=== PATIENT | female | born 1960 | race Caucasian/White ===

== ENCOUNTER → 2016-09-16 | Outpatient (CLI) | payer MEDICARE, OTHER | LOC: LABWHC1 09:58 | PROVIDERS: ATTEND Internal Medicine Cardiovascular Disease | DX: I10 Essential (primary) hypertension (principal) | CPT/HCPCS: 36415; 83704 ==

== ENCOUNTER → 2017-09-16 | Outpatient (CLI) | payer MEDICARE | END | disposition home or self-care (01) | LOC: LABPAT 15:45 | PROVIDERS: ATTEND Orthopaedic Surgery | DX: Z01.812 Encounter for preprocedural laboratory examination (principal) | CPT/HCPCS: 36415; 85730; 87070 ==

== ENCOUNTER 2017-09-19 10:09 | Inpatient (IN) | payer MEDICARE, OTHER ==
[2017-09-09 14:24] VITALS: BMI 42.8
[~2017-09-19 10:09] MED LIST: ACETAMINOPHEN TAB 500 MG TAB PO ONE; BISACODYL 10 MG SUPP RECTAL PRN; DIAZEPAM 5 MG TAB PO PRN; HYDROcodone/APAP 5-325MG 1 EACH TAB PO PRN; LIDOCAINE 1% 20 ML VIAL (10MG/ML) FOR IV START INTRADERMA PRN; MAGNESIUM HYDROXIDE 2,400 MG/10 ML CUP PO PRN; MELOXICAM 7.5 MG TAB PO ONE; MORPHINE SULFATE 4 MG/ML SYRINGE IV PRN; MORPHINE SULFATE 4 MG/ML SYRINGE IVP PRN; NA PHOS,M-B/NA PHOS,DI-BA 133 ML ENEMA RECTAL PRN; NALOXONE 0.4 MG/ML 1 ML VIAL IV PRN; ONDANSETRON 4 MG/2 ML VIAL IVP ONE; ONDANSETRON 4 MG/2 ML VIAL IVP PRN; TRANEXAMIC ACID 1,000 MG in SODIUM CHLORIDE 0.9% 50 ML IVPB ONE
[2017-09-19] MEDS ORDERED: LACTATED RINGERS 1,000 ML IV ONE ×3 (10:45→13:36)
[2017-09-19] MEDS ORDERED: DEXAMETHASONE SOD PHOS (MDV) 100 MG/10 ML VIAL IVP ONE (11:06)
[2017-09-19] MEDS ORDERED: MIDAZOLAM 2 MG/2 ML VIAL IVP ONE (11:38)
[2017-09-19] MEDS: ceFAZolin IN SWFI 2 GM/20 ML SYRINGE IVP ONE ×2 (12:26→12:27)
[2017-09-19] MEDS: ROPIVACAINE 246.25 MG, EPINEPHrine 0.5 MG, KETOROLAC 30 MG, cloNIDine HCL/PF 80 MCG, WA... MISCELLANE ONE ×10 (12:26→13:08)
[2017-09-19] MEDS ORDERED: ceFAZolin 3,000 MG in SODIUM CHLORIDE 0.9% IRRIGATIO 3,000 ML IRRIGATION ONE (13:08)
[2017-09-19] MEDS ORDERED: ROPIVACAINE 1,100 MG, SODIUM CHLORIDE 0.9% 330 ML MISCELLANE PRN ×2 (13:40)
--- NOTE | 2017-09-19 13:56 | P.OP ---
Date of Procedure: 09/19/17 Preoperative Diagnosis: Severe osteoarthritis right knee Postoperative Diagnosis: Severe osteoarthritis right knee Procedure(s) Performed: Right total knee arthroplasty Implants: Stratton and Nephew Oxinium femoral component size 4, right Stratton & Nephew Danika II right nonporous tibial baseplate size 3 Stratton [employer] Nephew size 9 mm Legion XLPE high flexion articular insert, size 3-4 Stratton [employer] Nephew Danika II resurfacing patellar component, 29 mm All components were cemented using Juan bone cement.. The articulation is Oxinium on polyethylene. Anesthesia: spinal Surgeon: Owen Tinoco Certified Histologic Technician #1: Valencia Shah Estimated Blood Loss (ml): 50 Pathology: other (Bone and cartilage) Condition: stable Disposition: PACU Indications for Procedure: After failure of conservative treatment we discussed the surgical and nonsurgical treatment options at length. Patient wishes to proceed with a total knee arthroplasty. Complications specific to this procedure were discussed at length, including but not limited to infection, bleeding, stiffness , and nerve injury. Patient is aware of all these complications and informed consent was obtained Operative Findings: The operative findings are consistent with severe osteoarthritis of the right knee Description of Procedure: Patient was seen in the preoperative area consent was reviewed and operative site was marked with a skin marker. An adductor canal pain catheter was placed by anesthesia in the preoperative area. Patient was then brought to the operating room and given preoperative antibiotics intravenously. A spinal anesthetic was administered by the anesthesia department. A tourniquet was placed on the upper thigh and the lower extremity was prepped and draped in usual sterile fashion. A gram of transexamic acid was given. A universal timeout was then performed which confirmed the patient's name, surgical site, ALLERGIES, and consent. The lower extremity was then exsanguinated and tourniquet was inflated to 250 mmHg. A standard and anterior midline approach to the knee was performed. The skin and subcutaneous tissue was dissected down to the patellar tendon. A medial parapatellar arthrotomy was then performed. The knee was then extended, the patellar was everted, and the knee was again flexed. Anterior horns of both menisci were excised, and a release was performed to the posterior medial aspect of the knee. On gross visual inspection, there was complete loss of articular cartilage in the medial and patellofemoral joint spaces. There was also significant cartilage damage in the lateral compartment. There were multiple periarticular osteophytes which were then removed with a Ronguer. The femoral canal was then opened with the appropriate drill, and the intramedullary femoral cutting guide was then placed and set for 4 of valgus. The distal femoral cutting block was then pinned in place, and the distal femur was then cut. The cutting block was then removed and the cut was checked for flatness. Next, the sizing guide was then placed and set for 3 external rotation based off of the epicondylar axis and Whitesides line. After the femur was sized, the appropriate 4-in-1 cutting block was then pinned in place. The anterior condyles were cut without notching. The posterior and chamfer cuts were performed while protecting the collateral ligaments. The cutting block was then removed, and the femoral canal was plugged with autologous bone. Attention was then directed to the tibia. The remaining ACL was removed with a Ronguer, and the tibia was then gently subluxed forward with a large bent knee retractor. Any remaining menisci was excised. The posterior lateral corner was cauterized in order to cauterize the lateral geniculate artery. The extra medullary tibial cutting guide was then placed, set for the appropriate rotation , slope, and depth of resection. The proximal tibia cutting guide was then pinned in place. Proximal tibia was then cut and sized. Next trials were then placed with the appropriate-sized insert. The knee was able to fully extend and flex to 130 and was stable throughout all range of motion. The knee was then extended, patella everted. Patella was then measured, and then using an osteotomy guide, the patella was cut at the appropriate level. The patella was then measured and drilled and the patella trial was then placed. The knee was then taken through range of motion with the patella trial and the patella tracked normally. The knee was then extended patella trial was then removed and the patella was everted. Knee was then flexed and lug holes were drilled through the femoral trial and the femoral trial was then removed. The tibial was then exposed, and the tibial broach guide was then pinned in place after it was set for the appropriate rotation to allow for the most coverage without overhang. The tibia was then reamed and broached. The cut surfaces of bone were then irrigated with pulsatile lavage. The posterior structures were injected with the ropivacaine solution. The knee was also irrigated with Irrisept solution. The components were then opened, the cement was mixed, and the components were then cemented in place. The cement was allowed to harden with the knee in full extension. While the cement was hardening, the remaining soft tissues were then injected with a ropivacaine solution, which consisted of 246.25 mg of ropivacaine, 0.5 mg of epinephrine, 30 mg of Toradol, 80 g of clonidine, and 48.45 mL of sterile water, for a total of 100 mL of fluid injected. After the cemented hardened. The tourniquet was released, and hemostasis was obtained. A second gram of transexamic acid was given. The knee was again irrigated. The knee was again taken through range of motion and found to be stable throughout all range of motion of 0-130 , and the patella tracked normally. The fascia was then closed with #2 strata fix suture. The subcutaneous tissue was closed with 3-0 Vicryl and 3-0 strata fix. Dermabond glue was used for the skin and placed with the knee in flexion. The patient was placed in a sterile silver dressing. Patient was then transferred to recovery room in stable condition. The fish hatchery assistant NEISHA Smith was required due the complexity surgery and the need for a skilled appeals assistant. She assisted in positioning, draping, retraction, and closure of the wound.
--- NOTE | 2017-09-19 14:36 | XR ---
EXAMINATION TYPE: XR knee limited RT DATE OF EXAM: 09/19/2017 CLINICAL HISTORY: Right knee pain and arthritis status post total knee replacement. TECHNIQUE: Portable AP and crosstable lateral views of the right knee are obtained immediately posto peratively. COMPARISON: None FINDINGS: Metallic hardware from total right knee arthroplasty is seen and appears satisfactory in a lignment and position. There is evidence of recent surgery with diffuse subcutaneous gas and soft ti ssue swelling noted. IMPRESSION: METALLIC HARDWARE FROM TOTAL RIGHT KNEE ARTHROPLASTY IS SATISFACTORY IN ALIGNMENT.
[2017-09-19] MEDS: LACTATED RINGERS 1,000 ML IV SCH ×2 (15:55→23:56)
[2017-09-19] MEDS: hydrOXYzine PAMOATE 25 MG CAP PO PRN ×2 (16:04→22:26)
[2017-09-19] MEDS: HYDROcodone/APAP 5-325MG 1 EACH TAB PO PRN ×2 (16:04→22:26)
[2017-09-19] MEDS: ceFAZolin IN SWFI 2 GM/20 ML SYRINGE IVP SCH ×2 (17:33→23:57)
[2017-09-19] MEDS ORDERED: ASPIRIN 325 MG TAB PO SCH (21:00)
[2017-09-19] MEDS: SENNOSIDES-DOCUSATE SODIUM 1 EACH TAB PO SCH (22:26)
[2017-09-20] MEDS: ASPIRIN 325 MG TAB PO SCH ×3 (02:21→23:03)
[2017-09-20] MEDS: SODIUM CHLORIDE 0.9% 1,000 ML IV SCH ×3 (02:22→08:57)
[2017-09-20] MEDS: HYDROcodone/APAP 5-325MG 1 EACH TAB PO PRN ×4 (05:05→23:04)
--- NOTE | 2017-09-20 05:56 | P.ONQ ---
Anesthesiology Proc Note - PNB - Peripheral Nerve Block Performed Right Adductor Canal Infusion Time Out Performed: Yes Procedure Start Time: 11:41 Procedure Stop Time: 11:51 Indication: Acute Post-Operative Pain, Requested by physician Sedation Type: Sedate with meaningful contact maintained Preparation: Sterile Dressing Position: Supine Catheter: Indwelling Needle Types: On-Q Needle Size: 100mm (4") Needle Gauge: 21 Technique: Ultrasound Injectate: 0.5% Ropivacaine (see comment for volume) (ropi .5% 20cc) Blood Aspirated: No Pain Paresthesia on Injection Noted: No Resistance on Injection: Normal Events: Uneventful and Well Tolerated
[2017-09-20 07:24] LABS: Basophils % (A) 0 %; Eosinophils # (A) 0.1 k/uL (0-0.7); Eosinophils % (A) 1 %; HCT 32.8 % (34.0-46.0); Lymphocytes % (A) 28 %; MCH 28.8 pg (25.0-35.0); MCHC 33.4 g/dL (31.0-37.0); MCV 86.2 fL (80.0-100.0); Mean Platelet Volume 6.4; Monocytes # (A) 0.3 k/uL (0-1.0); Monocytes % (A) 5 %; Neutrophils # (A) 4.8 k/uL (1.3-7.7); Neutrophils % (A) 65 %; Platelet Count 203 k/uL (150-450); RBC 3.81 m/uL (3.80-5.40); RDW 12.9 % (11.5-15.5); WBC 7.3 k/uL (3.8-10.6)
[2017-09-20] MEDS: MELOXICAM 7.5 MG TAB PO SCH (08:27)
[2017-09-20] MEDS: hydrOXYzine PAMOATE 25 MG CAP PO PRN ×3 (11:41→23:03)
--- NOTE | 2017-09-20 13:14 | P.PN ---
Progress Note - Text Anesthesia POD 1. Patient is status post right TKR under spinal anesthesia with a right adductor canal catheter placed for postoperative pain relief. With ropivacaine 0.2% running at 8 cc's per hour, the patient's VAS is (3, 5). Catheter site is clean dry and intact.
--- NOTE | 2017-09-20 16:19 | P.CONS ---
History of Present Illness - Reason for Consult Consult date: 09/20/17 Requesting physician: Owen Tinoco - Chief Complaint Status post right knee arthroplasty. - History of Present Illness This is a consultation note on a 57-year-old white female who is very well- known to my practice who has an underlying history of hypothyroidism who was in need of right knee arthroplasty. The patient states no new complaints. She is sitting in a chair comfortably without significant lower extremity pain. She is asking for medication for insomnia. Otherwise, no voiding symptoms. She describes no chest pain or shortness of breath. Some nausea most likely related to anesthesia is stated. Review of Systems Constitutional: Denies chills, Denies fever Eyes: denies blurred vision, denies pain Ears, nose, mouth and throat: Denies headache, Denies sore throat Cardiovascular: Denies chest pain, Denies shortness of breath Respiratory: Denies cough Gastrointestinal: Denies abdominal pain, Denies diarrhea, Denies nausea, Denies vomiting Genitourinary: Denies dysuria, Denies hematuria Psychiatric: Reports insomnia Endocrine: Denies fatigue, Denies weight change Past Medical History Past Medical History: Hypertension, Thyroid Disorder History of Any Multi-Drug Resistant Organisms: None Reported Past Surgical History: Bariatric Surgery, Cholecystectomy Additional Past Surgical History / Comment(s): Gastric bypass tightened - unsuccessful. Past Anesthesia/Blood Transfusion Reactions: No Reported Reaction Past Psychological History: No Psychological Hx Reported Smoking Status: Never smoker Past Alcohol Use History: None Reported Past Drug Use History: None Reported - Past Family History Father Family Medical History: No Reported History Medications and Allergies Home Medications Medication Instructions Recorded Confirmed Type Hydrochlorothiazide 25 mg PO QAM 09/09/17 09/19/17 History Levothyroxine Sodium [Synthroid] 150 mcg PO QAM 09/09/17 09/19/17 History Allergies Allergy/AdvReac Type Severity Reaction Status Date / Time banana Allergy Anaphylaxis Verified 09/19/17 14:53 latex Allergy Rash/Hives Verified 09/19/17 14:53 Physical Exam Vitals: Vital Signs Temp Pulse Pulse Pulse Resp BP Pulse Ox 09/20/17 14:37 98.1 F 94 16 115/70 98 09/20/17 07:00 98.4 F 71 14 112/71 97 09/20/17 00:00 72 72 17 09/19/17 23:00 97.5 F L 72 72 16 106/70 98 09/19/17 16:45 83 96/89 09/19/17 16:30 74 129/72 Intake and Output 09/20/17 09/20/17 09/20/17 06:59 14:59 22:59 Intake Total 826 230 Balance 826 230 Intake: Intake, IV Titration 286 130 Amount Sodium Chloride 0.9% 1, 286 130 000 ml @ 65 mls/hr IV . [id number] [facility] Rx#:[id number] Oral 540 100 Other: Voiding Method Bedside Commode # Voids 2 2 Weight 96.162 kg - Constitutional General appearance: no acute distress - EENT Eyes: EOMI - Neck Neck: no lymphadenopathy - Respiratory Respiratory: bilateral: CTA - Cardiovascular Rhythm: regular Heart sounds: normal: S1, S2 Abnormal Heart Sounds: no S3 Gallop - Gastrointestinal General gastrointestinal: soft, no tenderness - Psychiatric Psychiatric: A&O x's 3, no appropriate affect Results CBC & Chem 7: 09/20/17 06:12 Labs: Abnormal Lab Results - Last 24 Hours (Table) 09/20/17 Range/Units 06:12 Hgb 11.0 L (11.4-16.0) gm/dL Hct 32.8 L (34.0-46.0) % Assessment and Plan (1) Hypertension Current Visit: Yes Status: Acute Code(s): I10 - ESSENTIAL (PRIMARY) HYPERTENSION SNOMED Code(s): 32370479 (2) Hypothyroidism Current Visit: Yes Status: Acute Code(s): E03.9 - HYPOTHYROIDISM, UNSPECIFIED SNOMED Code(s): 04179148 (3) Osteoarthritis of right knee Current Visit: Yes Status: Acute Code(s): M17.11 - UNILATERAL PRIMARY OSTEOARTHRITIS, RIGHT KNEE SNOMED Code(s): 753340132954456 Plan: Reconcile medications. Check CBC and CMP in a.m.. The patient is doing quite well postoperatively we'll continue DVT prophylaxis with appropriate pulmonary toilet. GI prophylaxis as necessary. See orders otherwise. Time with Patient: Less than 30
--- NOTE | 2017-09-20 16:22 | P.PN ---
Subjective Progress Note Date: 09/20/17 This is a 57-year-old female who is status post right total knee arthroplasty. This is postoperative day #1. Patient is seen and evaluated at bedside today with Dr. Owen Tinoco. Patient states she has felt somewhat nauseous today. Patient states her pain is under control. Patient denies any fever/chills, numbness, weakness, tingling, abdominal pain, shortness of breath or chest pain. Objective - Vital Signs Vital signs: Vital Signs Temp 98.1 F 09/20/17 14:37 Pulse 94 09/20/17 14:37 Resp 16 09/20/17 14:37 BP 115/70 09/20/17 14:37 Pulse Ox 98 09/20/17 14:37 Intake & Output 09/19/17 09/20/17 09/20/17 18:59 06:59 18:59 Intake Total 1100 826 230 Output Total 50 Balance 1050 826 230 Weight 96.162 kg 96.162 kg Intake: IV 1100 Intake, IV Titration 286 130 Amount Sodium Chloride 0.9% 1, 286 130 000 ml @ 65 mls/hr IV . [id number] [facility] Rx#:[id number] Oral 540 100 Output: Estimated Blood Loss 50 Other: Voiding Method Bedside Commode # Voids 2 2 - Exam Vital signs are stable. Patient is in no acute distress and is alert and oriented 3. Calf is soft and nontender to palpation. Dressing is clean, dry, and intact. Patient has full foot and ankle motion without pain or difficulty. Neurovascular status and circulatory status are intact. - Labs CBC & Chem 7: 09/20/17 06:12 Labs: Abnormal Lab Results - Last 24 Hours (Table) 09/20/17 Range/Units 06:12 Hgb 11.0 L (11.4-16.0) gm/dL Hct 32.8 L (34.0-46.0) % Assessment and Plan (1) Primary osteoarthritis of right knee Current Visit: Yes Status: Acute Code(s): M17.11 - UNILATERAL PRIMARY OSTEOARTHRITIS, RIGHT KNEE SNOMED Code(s): 554695011449927 (2) S/P total knee arthroplasty Current Visit: Yes Status: Acute Code(s): Z96.659 - PRESENCE OF UNSPECIFIED ARTIFICIAL KNEE JOINT SNOMED Code(s): 8139807655435 Plan: #1 Continue with routine postoperative care, leave dressing in place for one week. #2 Anticoagulation with aspirin. #3 Physical therapy and CPM today. #4 Appreciate input from medicine. #5 Anticipate discharge to rehab on .
[2017-09-20] MEDS: DIAZEPAM 5 MG TAB PO PRN (20:45)
[2017-09-20] MEDS: SENNOSIDES-DOCUSATE SODIUM 1 EACH TAB PO SCH (23:03)
[2017-09-21] MEDS: LACTATED RINGERS 1,000 ML IV SCH (00:02)
[2017-09-21] MEDS: HYDROcodone/APAP 5-325MG 1 EACH TAB PO PRN ×2 (05:22→11:39)
[2017-09-21] MEDS: hydrOXYzine PAMOATE 25 MG CAP PO PRN ×2 (05:23→11:39)
[2017-09-21] MEDS: LEVOTHYROXINE 75 MCG TAB PO SCH (05:23)
[2017-09-21 08:04] LABS: HCT 29.9 % (34.0-46.0); MCH 28.7 pg (25.0-35.0); MCHC 33.4 g/dL (31.0-37.0); MCV 86.1 fL (80.0-100.0); Mean Platelet Volume 6.8; Platelet Count 169 k/uL (150-450); RBC 3.47 m/uL (3.80-5.40); RDW 13.2 % (11.5-15.5); WBC 4.6 k/uL (3.8-10.6)
[2017-09-21 08:19] LABS: ALT 24 U/L (9-52); AST 17 U/L (14-36); Alkaline Phosphatase 67 U/L (38-126); Anion Gap 4 mmol/L; Blood Urea Nitrogen 10 mg/dL (7-17); Calcium 8.7 mg/dL (8.4-10.2); Carbon Dioxide 29 mmol/L (22-30); Chloride 106 mmol/L (98-107); Glucose 85 mg/dL (74-99); Potassium 4.2 mmol/L (3.5-5.1); Sodium 139 mmol/L (137-145); Total Bilirubin 0.4 mg/dL (0.2-1.3); Total Protein 5.2 g/dL (6.3-8.2)
[2017-09-21] MEDS: SODIUM CHLORIDE 0.9% 1,000 ML IV SCH ×2 (09:11→20:03)
[2017-09-21] MEDS: HYDROCHLOROTHIAZIDE 25 MG TAB PO SCH (09:12)
[2017-09-21] MEDS: MELOXICAM 7.5 MG TAB PO SCH (09:13)
--- NOTE | 2017-09-21 09:13 | P.PN ---
Subjective Progress Note Date: 09/21/17 This is a 57-year-old female who is status post right total knee arthroplasty. This is postoperative day #2. Patient is seen and evaluated at bedside today with Dr. Owen Tinoco. Patient states she is feeling much better today and her pain is under control. Patient denies any new complaints. Patient denies any fever/chills, numbness, weakness, tingling, abdominal pain, shortness of breath or chest pain. Objective - Vital Signs Vital signs: Vital Signs Temp 98.2 F 09/21/17 07:00 Pulse 88 09/21/17 07:00 Resp 16 09/21/17 07:00 BP 144/69 09/21/17 07:00 Pulse Ox 97 09/21/17 07:00 Intake & Output 09/20/17 09/21/17 09/21/17 18:59 06:59 18:59 Intake Total 330 2040 Balance 330 2040 Weight 96.162 kg Intake: Intake, IV Titration 130 Amount Sodium Chloride 0.9% 1, 130 000 ml @ 65 mls/hr IV . [id number] [facility] Rx#:[id number] Oral 200 2040 Other: # Voids 2 2 - Exam Vital signs are stable. Patient is in no acute distress and is alert and oriented 3. Calf is soft and nontender to palpation. Dressing is clean, dry, and intact. Patient has full foot and ankle motion without pain or difficulty. Neurovascular status and circulatory status are intact. - Labs CBC & Chem 7: 09/21/17 07:06 09/21/17 07:06 Labs: Abnormal Lab Results - Last 24 Hours (Table) 09/21/17 09/21/17 Range/Units 07:06 07:06 RBC 3.47 L (3.80-5.40) m/uL Hgb 10.0 L (11.4-16.0) gm/dL Hct 29.9 L (34.0-46.0) % Creatinine 0.50 L (0.52-1.04) mg/dL Total Protein 5.2 L (6.3-8.2) g/dL Albumin 3.0 L (3.5-5.0) g/dL Assessment and Plan (1) Primary osteoarthritis of right knee Current Visit: Yes Status: Acute Code(s): M17.11 - UNILATERAL PRIMARY OSTEOARTHRITIS, RIGHT KNEE SNOMED Code(s): 732734935856478 (2) S/P total knee arthroplasty Current Visit: Yes Status: Acute Code(s): Z96.659 - PRESENCE OF UNSPECIFIED ARTIFICIAL KNEE JOINT SNOMED Code(s): 6869452928670 Plan: #1 Continue with routine postoperative care, leave dressing in place for one week. #2 Anticoagulation with aspirin. #3 Physical therapy and CPM today. #4 Appreciate input from medicine. #5 Anticipate discharge to rehab on .
[2017-09-21] MEDS: ASPIRIN 325 MG TAB PO SCH ×2 (09:14→20:01)
--- NOTE | 2017-09-21 09:28 | P.PN ---
Progress Note - Text The patient is status post right adductor canal catheter placement. The catheter was placed for postoperative pain control, status post total right arthroplasty. Ropivacaine 0.2% is infusing at 10 mLs per hour. The patient has no complaints of right lower extremity numbness or weakness. Patient's VAS score is 3 -10. Assessment: Patient's adductor canal catheter is in place and working appropriately. Plan: continue infusion and adjust it as needed.
--- NOTE | 2017-09-21 13:27 | P.PN ---
Subjective Progress Note Date: 09/21/17 Principal diagnosis: Continuing care. This is a continue present 57-year-old white female essentially admitted for left knee arthroplasty. The patient states no new complaints. Pulmonary toilet and anticoagulation are being followed from appropriate postsurgical protocol. The patient does not complain of any new headache or shortness of breath. No chest pain as noted. Laboratory examination is noted. Objective - Vital Signs Vital signs: Vital Signs Temp 98.2 F 09/21/17 07:00 Pulse 88 09/21/17 07:00 Resp 16 09/21/17 07:00 BP 144/69 09/21/17 07:00 Pulse Ox 97 09/21/17 07:00 Intake & Output 09/20/17 09/21/17 09/21/17 18:59 06:59 18:59 Intake Total 330 2040 Balance 330 2040 Weight 96.162 kg Intake: Intake, IV Titration 130 Amount Sodium Chloride 0.9% 1, 130 000 ml @ 65 mls/hr IV . [id number] [facility] Rx#:[id number] Oral 200 2040 Other: # Voids 2 2 - Constitutional General appearance: Present: cooperative. Absent: disheveled - EENT Eyes: Absent: abnormal pupil - Respiratory Respiratory: bilateral: CTA - Cardiovascular Rhythm: regular Heart sounds: normal: S1, S2 Abnormal Heart Sounds: Absent: S3 Gallop - Gastrointestinal General gastrointestinal: Present: soft. Absent: tenderness - Integumentary Integumentary: Absent: cellulitis, rash - Musculoskeletal Musculoskeletal: Present: generalized weakness - Psychiatric Psychiatric: Present: A&O x's 3 - Labs CBC & Chem 7: 09/21/17 07:06 09/21/17 07:06 Labs: Abnormal Lab Results - Last 24 Hours (Table) 09/21/17 09/21/17 Range/Units 07:06 07:06 RBC 3.47 L (3.80-5.40) m/uL Hgb 10.0 L (11.4-16.0) gm/dL Hct 29.9 L (34.0-46.0) % Creatinine 0.50 L (0.52-1.04) mg/dL Total Protein 5.2 L (6.3-8.2) g/dL Albumin 3.0 L (3.5-5.0) g/dL Assessment and Plan (1) Hypertension Current Visit: Yes Status: Acute Code(s): I10 - ESSENTIAL (PRIMARY) HYPERTENSION SNOMED Code(s): 15142865 (2) Hypothyroidism Current Visit: Yes Status: Acute Code(s): E03.9 - HYPOTHYROIDISM, UNSPECIFIED SNOMED Code(s): 68055600 (3) Osteoarthritis of right knee Current Visit: Yes Status: Acute Code(s): M17.11 - UNILATERAL PRIMARY OSTEOARTHRITIS, RIGHT KNEE SNOMED Code(s): 501294042293154 Plan: Continue current regimen postop protocol for knee arthroplasty. We'll continue follow from medical perspective. See orders otherwise.
[2017-09-21] MEDS ORDERED: HYDROcodone/APAP 7.5-325MG 1 EACH TAB PO PRN (15:32)
[2017-09-21] MEDS: DIAZEPAM 5 MG TAB PO PRN (16:23)
[2017-09-21] MEDS: HYDROcodone/APAP 7.5-325MG 1 EACH TAB PO PRN ×2 (17:07→23:25)
[2017-09-21] MEDS ORDERED: HYDROmorphone 2 MG TAB PO PRN ×2 (17:11→17:12)
[2017-09-21] MEDS ORDERED: HYDROmorphone 4 MG TABLET PO PRN (17:13)
[2017-09-21] MEDS: SENNOSIDES-DOCUSATE SODIUM 1 EACH TAB PO SCH (20:02)
[2017-09-22] MEDS: DIAZEPAM 5 MG TAB PO PRN ×2 (01:37→10:00)
[2017-09-22] MEDS: LACTATED RINGERS 1,000 ML IV SCH (04:35)
[2017-09-22] MEDS: LEVOTHYROXINE 75 MCG TAB PO SCH (06:22)
[2017-09-22] MEDS: HYDROcodone/APAP 7.5-325MG 1 EACH TAB PO PRN ×2 (06:22→12:16)
[2017-09-22 07:25] LABS: Basophils % (A) 1 %; Eosinophils # (A) 0.2 k/uL (0-0.7); Eosinophils % (A) 5 %; HCT 31.5 % (34.0-46.0); HGB 10.6 gm/dL (11.4-16.0); Lymphocytes # (A) 1.8 k/uL (1.0-4.8); Lymphocytes % (A) 40 %; MCH 29.1 pg (25.0-35.0); MCHC 33.6 g/dL (31.0-37.0); MCV 86.6 fL (80.0-100.0); Monocytes # (A) 0.2 k/uL (0-1.0); Monocytes % (A) 4 %; Neutrophils # (A) 2.2 k/uL (1.3-7.7); Neutrophils % (A) 49 %; Platelet Count 184 k/uL (150-450); RBC 3.63 m/uL (3.80-5.40); RDW 13.2 % (11.5-15.5); WBC 4.5 k/uL (3.8-10.6)
[2017-09-22 07:55] VITALS: BP 141/71; PULSE 64; RESP 18; TEMP 98.6
[2017-09-22] MEDS: HYDROCHLOROTHIAZIDE 25 MG TAB PO SCH (08:13)
[2017-09-22] MEDS: ASPIRIN 325 MG TAB PO SCH (08:13)
[2017-09-22] MEDS: MELOXICAM 7.5 MG TAB PO SCH (08:13)
--- NOTE | 2017-09-22 08:24 | P.DS ---
Providers Date of admission: 09/19/17 10:09 Expected date of discharge: 09/22/17 Attending physician: Owen Tinoco Consults: 09/19/17 10:04 Consult Physician Routine Consulting Provider: Jorge Mcfarlane Consult Reason/Comments: medical management Do you want consulting provider notified?: Yes Primary care physician: Concha Lo - Discharge Diagnosis(es) (1) Primary osteoarthritis of right knee Current Visit: Yes Status: Acute (2) S/P total knee arthroplasty Current Visit: Yes Status: Acute Hospital Course: This is a 57-year-old female with known history of degenerative arthritis of the right knee. The patient presents for evaluation. After discussion and consideration patient elects to proceed with total knee arthroplasty. The patient is seen preoperatively by Dr. Tinoco and medically cleared for surgery by their primary care physician. Patient is admitted to [facility] on 09/19/2017 for total knee arthroplasty. The procedures performed without complication or sequelae. The patient is doing well postoperatively. Labs and vital signs are stable on day of discharge. On day of discharge patient's knee incision is healing well. There is minimal erythema. There is no drainage noted at this time. There is minimal soft tissue swelling to the knee. Patient has full foot and ankle motion without difficulty or pain. Neurovascular status to the right lower extremity is intact. Patient is discharged to rehab in good condition. Please see med rec for accurate list of home medications. Plan - Discharge Summary Discharge Rx Participant: Yes New Discharge Prescriptions: New Aspirin 325 mg PO BID #60 tab HYDROcodone/APAP 7.5-325MG [Conger 7.5-325] 1 - 2 tab PO Q4-6H PRN #90 tab PRN Reason: Pain Sennosides [Senokot] 1 tab PO BID #60 tablet No Action Levothyroxine Sodium [Synthroid] 150 mcg PO QAM Hydrochlorothiazide 25 mg PO QAM Discharge Medication List Hydrochlorothiazide 25 mg PO QAM 09/09/17 [History] Levothyroxine Sodium [Synthroid] 150 mcg PO QAM 09/09/17 [History] Aspirin 325 mg PO BID #60 tab 09/22/17 [Rx] HYDROcodone/APAP 7.5-325MG [Conger 7.5-325] 1 - 2 tab PO Q4-6H PRN #90 tab [Rx] Sennosides [Senokot] 1 tab PO BID #60 tablet 09/22/17 [Rx] Follow up Appointment(s)/Referral(s): Owen Tinoco DO [Doctor of Osteopathic Medicine] - 2 Weeks Ambulatory/Diagnostic Orders: Continuous Passive Motion (CPM) Machine [DME.AMB1] Time Frame: 3 Weeks, Location : Determined By Patient Activity/Diet/Wound Care/Special Instructions: Weightbearing as tolerated with a walker CPM 5-6h daily Leave dressing intact. May be removed by home care nurse in 10 days, 2017. May shower with dressing on. [facility] with questions or concerns [phone] Discharge Disposition: TRANSFER TO SNF/ECF
== END 2017-09-22 13:08 | DRG 470 ==
LOC: 2ORMAIN 10:09 → 3SUR 14:15
PROVIDERS: ADMIT Orthopaedic Surgery; ATTEND Orthopaedic Surgery
PROC: 0SRC069 Replacement of Right Knee Joint with Oxidized Zirconium on Polyethylene Synthetic Substitute, Cemented, Open Approach (ICD-10-PCS; principal; 2017-09-19 12:30)
DX: M17.11 Unilateral primary osteoarthritis, right knee (principal); E03.9 Hypothyroidism, unspecified; G47.00 Insomnia, unspecified; I10 Essential (primary) hypertension; Z79.1 Long term (current) use of non-steroidal anti-inflammatories (NSAID); Z79.899 Other long term (current) drug therapy; Z90.49 Acquired absence of other specified parts of digestive tract; Z98.84 Bariatric surgery status; Z91.040 Latex allergy status; Z91.018 Allergy to other foods
CPT/HCPCS: 36415; 80053; 85025; 85027; 85730; 87070; 88300

== ENCOUNTER 2018-03-07 06:27 | Observation (INO) | payer MEDICARE, OTHER ==
[2018-03-07 06:32] VITALS: RESP 16
[2018-03-07] MEDS ORDERED: ASPIRIN 81 MG PO STA (06:41)
[2018-03-07] MEDS ORDERED: NITROGLYCERIN SL TABS 0.4 MG TAB SUBLINGUAL STA (06:58)
--- NOTE | 2018-03-07 07:01 | ED ---
Chest Pain HPI - General Chief Complaint: Chest Pain Stated Complaint: Chest Pain, syncope Time Seen by Provider: 03/07/18 06:40 Source: patient, family, RN notes reviewed Mode of arrival: wheelchair Limitations: no limitations - History of Present Illness Initial Comments: This a 58-year-old female presents to the emergency Department with chief complaint of chest pain. Patient states that the pain started yesterday progressed throughout the night and which she has developed some left arm and neck discomfort. She states it feels like symptoms falling on her arm. She denies any headache, blurred vision, focal weakness. Patient states that she hadn't heart issues approximate 10-15 years ago in which she had a heart cath, echocardiogram at that time was diagnosed with angina she's had no stents. She does take medications for hypertension denies hyperlipidemia, diabetes, smoking history. Patient does take medications currently for hypothyroidism has not taken this morning. Patient does admit to some nausea. Patient also states that she called her told that she is were the hospital. She was getting dressed and next thing she knew she woke up on the ground area she states that she would she passed out at this time. - Related Data Home Medications Medication Instructions Recorded Confirmed Hydrochlorothiazide 25 mg PO QAM 09/09/17 03/07/18 Levothyroxine Sodium [Synthroid] 150 mcg PO QAM 09/09/17 03/07/18 Allergies Allergy/AdvReac Type Severity Reaction Status Date / Time banana Allergy Anaphylaxis Verified 03/07/18 07:56 latex Allergy Rash/Hives Verified 03/07/18 07:56 Review of Systems ROS Statement: Those systems with pertinent positive or pertinent negative responses have been documented in the HPI. ROS Other: All systems not noted in ROS Statement are negative. EKG Findings - EKG Comments: EKG Findings:: EKG performed at 6:37 normal sinus rhythm with a rate of 63 [place] 176 QRS 84 QT/QTC 432/442 Past Medical History Past Medical History: Hypertension, Thyroid Disorder History of Any Multi-Drug Resistant Organisms: None Reported Past Surgical History: Bariatric Surgery, Cholecystectomy Additional Past Surgical History / Comment(s): Gastric bypass tightened - unsuccessful. Past Anesthesia/Blood Transfusion Reactions: No Reported Reaction Past Psychological History: No Psychological Hx Reported Smoking Status: Never smoker Past Alcohol Use History: None Reported Past Drug Use History: None Reported - Past Family History Father Family Medical History: No Reported History General Exam Limitations: no limitations General appearance: alert, in no apparent distress Head exam: Present: atraumatic, normocephalic, normal inspection Neck exam: Present: normal inspection, full ROM. Absent: tenderness, meningismus, lymphadenopathy Respiratory exam: Present: normal lung sounds bilaterally, chest wall tenderness. Absent: respiratory distress, wheezes, rales, rhonchi, stridor Cardiovascular Exam: Present: regular rate, normal rhythm, normal heart sounds. Absent: systolic murmur, diastolic murmur, rubs, gallop, clicks GI/Abdominal exam: Present: soft, normal bowel sounds. Absent: distended, tenderness, guarding, rebound, rigid Course Vital Signs 03/07/18 03/07/18 03/07/18 06:29 07:44 07:56 Temperature 97.9 F Pulse Rate 64 66 60 Respiratory 16 16 16 Rate Blood Pressure 155/84 136/76 118/70 O2 Sat by Pulse 97 100 100 Oximetry Disposition Clinical Impression: Chest pain, Syncope Disposition: ADMITTED IP TO THIS [facility] Condition: Stable Referrals: Jorge Mcfarlane MD [Primary Care Provider] - 1-2 days
[2018-03-07 07:04] LABS: Basophils % (A) 1 %; Eosinophils # (A) 0.1 k/uL (0-0.7); Eosinophils % (A) 3 %; HCT 39.1 % (34.0-46.0); HGB 12.3 gm/dL (11.4-16.0); Lymphocytes # (A) 1.9 k/uL (1.0-4.8); Lymphocytes % (A) 49 %; MCH 27.5 pg (25.0-35.0); MCHC 31.4 g/dL (31.0-37.0); MCV 87.6 fL (80.0-100.0); Mean Platelet Volume 5.9; Monocytes # (A) 0.2 k/uL (0-1.0); Monocytes % (A) 6 %; Neutrophils # (A) 1.5 k/uL (1.3-7.7); Neutrophils % (A) 39 %; Platelet Count 271 k/uL (150-450); RBC 4.46 m/uL (3.80-5.40); RDW 14.8 % (11.5-15.5); WBC 3.8 k/uL (3.8-10.6)
--- NOTE | 2018-03-07 07:09 | XR ---
EXAMINATION TYPE: XR chest 2V DATE OF EXAM: 03/07/2018 COMPARISON: NONE HISTORY: Chest pain TECHNIQUE: Frontal and lateral views of the chest are obtained. FINDINGS: There is no heart failure nor confluent pneumonic infiltrate. Costophrenic angles are harman r. Heart size is normal. There are chest leads. Bony thorax is intact. IMPRESSION: No active cardiopulmonary disease. No heart failure.
[2018-03-07 07:14] LABS: ALT 26 U/L (9-52); AST 24 U/L (14-36); Albumin 3.7 g/dL (3.5-5.0); Alkaline Phosphatase 81 U/L (38-126); Anion Gap 3 mmol/L; Blood Urea Nitrogen 13 mg/dL (7-17); Calcium 9.4 mg/dL (8.4-10.2); Carbon Dioxide 32 mmol/L (22-30); Chloride 104 mmol/L (98-107); Glucose 90 mg/dL (74-99); Magnesium 1.9 mg/dL (1.6-2.3); Sodium 139 mmol/L (137-145); Total Bilirubin 0.4 mg/dL (0.2-1.3); Total Protein 6.6 g/dL (6.3-8.2)
[2018-03-07 07:17] LABS: D-Dimer 0.46 mg/L FEU (<0.60); INR 1.1 (<1.2); Partial Thromboplastin Time 23.6 sec (22.0-30.0); Prothrombin Time 10.4 sec (9.0-12.0)
[2018-03-07 07:41] LABS: Creatine Kinase 102 U/L (30-135)
[2018-03-07 07:53] LABS: Creatine Kinase MB 1.1 ng/mL (0.0-2.4); Troponin I <0.012 ng/mL (0.000-0.034)
[2018-03-07] MEDS ORDERED: HEPARIN SODIUM,PORCINE 5,000 UNIT/ML 1 ML VIAL IV ONE (08:13)
[2018-03-07] MEDS ORDERED: NITROGLYCERIN SL TABS 0.4 MG TAB SUBLINGUAL PRN (08:13)
[2018-03-07] MEDS ORDERED: HEPARIN SOD,PORK IN 0.45% NACL 25,000 UNIT in 0.45% NACL 1 500ML.BAG IV SCH (08:15)
[2018-03-07 11:59] LABS: Creatine Kinase 83 U/L (30-135)
[2018-03-07 12:11] LABS: Creatine Kinase MB 0.8 ng/mL (0.0-2.4); Troponin I <0.012 ng/mL (0.000-0.034)
--- NOTE | 2018-03-07 12:14 | CONS ---
CONSULTATION Mrs. Conde is a 58-year-old female who presented with symptoms of chest and arm discomfort as well as syncope. She has some discomfort going on since yesterday. Some of the discomfort is somewhat positional and she had tingling in the hands. She got up and walked her dog and subsequently because of the persistent symptoms, she called her to come to the emergency room after she was in the bathroom, got up from bathroom and walked to her room when she had a syncopal episode. She had no associated palpitation. No tonic clonic activity and no loss of bladder control. She was admitted to the hospital to be evaluated. The patient has had cardiac catheterization about 10 years ago and according to her was unremarkable at that time. She was seen in our office in October of 2015 and at that time and subsequently had a myocardial perfusion imaging performed in September of 2016 that revealed no evidence of inducible ischemia. The patient has dyspnea on exertion. No dizziness. No palpitation. No PND, orthopnea, and no prior history of syncope. Her coronary risk factors are positive for history of hypertension. She is nondiabetic, nonsmoker. MEDICATION: Her medications include levothyroxine 0.15 mg daily and hydrochlorothiazide 25 mg daily. REVIEW OF SYSTEMS: RESPIRATORY SYSTEM: No history of documented asthma, emphysema or bronchitis. GI SYSTEM: No recent GI bleed. No peptic ulcer disease. SYSTEM: No dysuria or hematuria. NERVOUS SYSTEM: No history of stroke or seizure. PHYSICAL EXAMINATION: She is a 58-year-old female, alert, oriented, in no apparent distress. Blood pressure 135/70 with the heart rate in the 60s. HEAD: Normocephalic. EYES: Sclerae anicteric. NECK: Good upstroke. No bruits. No jugular venous distention. LUNGS: Clear to auscultation. HEART: Regular rate and rhythm. S1, S2. No S3. No S4. No murmur or rub. ABDOMEN: Soft, nontender. Positive bowel sounds. No organomegaly. EXTREMITIES: No significant edema. Intact distal pulses. LAB DATA: Lab data revealed a troponin of 0.012. BUN and creatinine 13 and 0.68. Potassium 4.0. Hemoglobin of 12.3. IMPRESSION: 1. Chest discomfort with tingling in the fingers of unclear etiology. 2. Syncope appears to be orthostatic in origin. 3. History of gastric bypass. 4. History of hypertension. RECOMMENDATION: From the cardiac standpoint, I will obtain echocardiogram with Doppler. I will obtain cardiac enzymes. If her cardiac enzymes are negative then I will proceed with a myocardial perfusion imaging to further assess her status and guide her treatment. Thank you for this consult. We will follow with you. MMIRISHL / IJN: [id number] /
[2018-03-07] MEDS ORDERED: REGADENOSON 0.4 MG/5 ML SYRINGE IV ONE (12:19)
[2018-03-07] MEDS ORDERED: AMINOPHYLLINE 500 MG/20 ML VIAL IV PRN (12:19)
--- NOTE | 2018-03-07 12:33 | ECHOF ---
Referral Reason:chest pain MEASUREMENTS -------- HEIGHT: 149.9 cm WEIGHT: 103.9 kg BP: 118/70 RVIDd: 3.6 cm (< 3.3) IVSd: 0.9 cm (0.6 - 1.1) LVIDd: 4.0 cm (3.9 - 5.3) LVPWd: 1.0 cm (0.6 - 1.1) IVSs: 1.3 cm LVIDs: 2.5 cm LVPWs: 1.3 cm LAESV Index (A-L): 30.09 ml/m Ao Diam: 3.2 cm (2.0 - 3.7) AV Cusp: 1.8 cm (1.5 - 2.6) LA Diam: 4.0 cm (2.7 - 3.8) EPSS: 1.5 cm MV E Jani: 0.90 m/s MV DecT: 256 ms MV A Jani: 0.71 m/s MV E/A Ratio: 1.28 RAP: 5.00 mmHg RVSP: 32.55 mmHg MV EF SLOPE: 77.60 mm/s (70 - 150) MV EXCURSION: 1.85 cm (> 18.000) FINDINGS -------- Sinus rhythm. This was a technically difficult study with suboptimal views. The left ventricular size is normal. Left ventricular wall thickness is normal. Overall left vent ricular systolic function is normal with, an EF between 55 - 60 %. The right ventricle is mildly enlarged. LA is midly dilated 29-33ml/m2. The right atrial size is normal. 3 ml of Lumason was utilized for enhancement of images. There is mild aortic valve sclerosis. There is no evidence of aortic stenosis. Mild mitral annular calcification present. Mild mitral regurgitation is present. Mild tricuspid regurgitation present. Right ventricular systolic pressure is normal at < 35 mmHg. There is no evidence of pulmonary hypertension. Trace/mild (physiologic) pulmonic regurgitation. The aortic root size is normal. IVC Not well visulized. There is no pericardial effusion. CONCLUSIONS -------- 1. Sinus rhythm. 2. This was a technically difficult study with suboptimal views. 3. The left ventricular size is normal. 4. Left ventricular wall thickness is normal. 5. Overall left ventricular systolic function is normal with, an EF between 55 - 60 %. 6. The right ventricle is mildly enlarged. 7. LA is midly dilated 29-33ml/m2. 8. The right atrial size is normal. 9. 3 ml of Lumason was utilized for enhancement of images. 10. There is mild aortic valve sclerosis. 11. Mild mitral annular calcification present. 12. Mild mitral regurgitation is present. 13. Mild tricuspid regurgitation present. 14. Right ventricular systolic pressure is normal at < 35 mmHg. 15. Trace/mild (physiologic) pulmonic regurgitation. 16. The aortic root size is normal. 17. IVC Not well visulized. 18. There is no pericardial effusion. CHIEF OF INTERNAL MEDICINE: Nnamdi Mortensen RDCS
[2018-03-07] MEDS ORDERED: ACETAMINOPHEN TAB 325 MG TAB PO PRN (15:24)
[2018-03-07] MEDS: NITROGLYCERIN OINT 1 INCH/GM PACKET TOPICAL SCH ×2 (15:50→18:08)
[2018-03-07 19:45] LABS: Creatine Kinase 81 U/L (30-135)
[2018-03-07 19:58] LABS: Creatine Kinase MB 0.7 ng/mL (0.0-2.4); Troponin I <0.012 ng/mL (0.000-0.034)
[2018-03-08 03:50] LABS: Cholesterol 243 mg/dL (<200); HDL Cholesterol 73 mg/dL (40-60); LDL Cholesterol,Calculated 154 mg/dL (0-99); Triglycerides 81 mg/dL (<150)
[2018-03-08] MEDS: NITROGLYCERIN OINT 1 INCH/GM PACKET TOPICAL SCH (04:07)
[2018-03-08 07:27] LABS: Mean Platelet Volume 6.5; Platelet Count 245 k/uL (150-450)
--- NOTE | 2018-03-08 08:12 | PN ---
PROGRESS NOTE Mrs. Conde is a 58-year-old female who presented with symptoms of chest discomfort that has some atypical features for ischemic heart disease was more positional. She had a brief syncopal episode that could be orthostatic hypotension. She is feeling better today. She has no significant discomfort. No dizziness. No palpitation. On the monitor, she is in sinus mechanism. She is ambulating without much difficulty. Her echocardiogram revealed preserved left ventricular size and systolic function. Her medication include aspirin, nitro paste 1 inch q.6 hours. Her echocardiogram that was performed yesterday revealed a preserved left ventricular size and systolic function with mild mitral and tricuspid regurgitation. PHYSICAL EXAMINATION: Blood pressure 117/60 with the heart rate in the 60s. LUNGS: Clear. HEART: Regular rate and rhythm. S1, S2. No S3. No rub. ABDOMEN: Soft, nontender. EXTREMITIES: No edema. LAB DATA: Lab data revealed troponin less than 0.012. Her LDL is 154. IMPRESSION: 1. Chest discomfort, has atypical features for ischemic heart disease. 2. Syncope probably orthostatic hypotension. 3. Hypertension, stable at this time. 4. Hyperlipidemia, not treated. RECOMMENDATION: I will stop her nitrate and heparin. I will add statin to her regimen. I will proceed with myocardial perfusion imaging to evaluate her status and guide her treatment and depending on the results of testing, further recommendation will be made. MMODL / IJN: [id number] /
[2018-03-08] MEDS ORDERED: ASPIRIN 325 MG TAB PO SCH (09:00)
[2018-03-08] MEDS ORDERED: ATORVASTATIN 40 MG TAB PO SCH (09:00)
--- NOTE | 2018-03-08 09:10 | P.HPIM ---
History of Present Illness H&P Date: 03/08/18 Chief Complaint: Chest pain with dizziness/syncope This is a history and physical on a 58-year-old white female who was admitted from the emergency department with severe chest pressure. She states the pain started about yesterday and had developed some left arm and neck discomfort. She denies any significant weakness but she has had workup in the remote past including catheterization and echocardiogram. She has an underlying history of diabetes hyperlipidemia and previous smoking. There was some nausea but no overt diaphoresis. She was getting dressed and then she had a syncopal episode. The patient is now admitted for appropriate treatment. Review of Systems Constitutional: Denies chills, Denies fever Eyes: denies blurred vision, denies pain Ears, nose, mouth and throat: Denies headache, Denies sore throat Cardiovascular: Reports as per HPI, Reports chest pain, Reports syncope Respiratory: Denies cough Gastrointestinal: Denies abdominal pain, Denies diarrhea, Denies nausea, Denies vomiting Musculoskeletal: Denies myalgias Integumentary: Denies pruritus, Denies rash Past Medical History Past Medical History: Hypertension, Thyroid Disorder Additional Past Medical History / Comment(s): Hypothyroid History of Any Multi-Drug Resistant Organisms: None Reported Past Surgical History: Bariatric Surgery, Cholecystectomy, Joint Replacement, Tonsillectomy Additional Past Surgical History / Comment(s): Gastric bypass, revision of gastric bypass unsuccessful, total R knee arthroplasty, colonoscopy. Past Anesthesia/Blood Transfusion Reactions: No Reported Reaction Smoking Status: Never smoker - Past Family History Father Family Medical History: Coronary Artery Disease (CAD), CVA/TIA Additional Family Medical History / Comment(s): Father is . Mother Family Medical History: Coronary Artery Disease (CAD), CVA/TIA Additional Family Medical History / Comment(s): Mother is . Medications and Allergies Home Medications Medication Instructions Recorded Confirmed Type Hydrochlorothiazide 25 mg PO QAM 09/09/17 03/07/18 History Levothyroxine Sodium [Synthroid] 150 mcg PO QAM 09/09/17 03/07/18 History Allergies Allergy/AdvReac Type Severity Reaction Status Date / Time banana Allergy Anaphylaxis Verified 03/07/18 07:56 latex Allergy Rash/Hives Verified 03/07/18 07:56 Physical Exam Vitals: Vital Signs Temp Pulse Pulse Resp BP BP Pulse Ox 03/07/18 15:35 98.3 F 86 16 130/77 96 03/07/18 12:00 98.6 F 65 16 144/82 98 03/07/18 09:52 98.6 F 56 L 16 135/78 97 03/07/18 09:15 98 F 61 16 148/87 100 03/07/18 07:56 60 16 118/70 100 03/07/18 07:44 66 16 136/76 100 03/07/18 06:29 97.9 F 64 16 155/84 97 Intake and Output 03/07/18 03/07/18 03/07/18 06:59 14:59 22:59 Intake Total 222 Balance 222 Intake: Oral 222 Other: Weight 103.873 kg 102.1 kg - Constitutional General appearance: average body habitus - EENT Eyes: EOMI - Neck Neck: no lymphadenopathy - Respiratory Respiratory: bilateral: CTA - Cardiovascular Rhythm: regular Heart sounds: normal: S1, S2 Abnormal Heart Sounds: no S3 Gallop - Musculoskeletal Musculoskeletal: gait normal - Psychiatric Psychiatric: A&O x's 3, appropriate affect Results CBC & Chem 7: 03/08/18 06:32 03/07/18 06:46 Labs: Abnormal Lab Results - Last 24 Hours (Table) 03/07/18 Range/Units 06:46 Carbon Dioxide 32 H (22-30) mmol/L Thrombosis Risk Factor Assmnt - Choose All That Apply Any of the Below Risk Factors Present?: Yes Each Factor Represents 1 point: Age 41-60 years, Obesity (BMI >25) Other Risk Factors: No Other congenital or acquired thrombophilia - If yes, enter type in comment: No Thrombosis Risk Factor Assessment Total Risk Factor Score: 2 Thrombosis Risk Factor Assessment Level: Low Risk Assessment and Plan (1) Chest pain Current Visit: Yes Status: Acute Code(s): R07.9 - CHEST PAIN, UNSPECIFIED SNOMED Code(s): 13111873 (2) Syncope Current Visit: Yes Status: Acute Code(s): R55 - SYNCOPE AND COLLAPSE SNOMED Code(s): 749859041 (3) Hypertension Current Visit: No Status: Acute Code(s): I10 - ESSENTIAL (PRIMARY) HYPERTENSION SNOMED Code(s): 97312814 (4) Hypothyroidism Current Visit: No Status: Acute Code(s): E03.9 - HYPOTHYROIDISM, UNSPECIFIED SNOMED Code(s): 53048689 Plan: The patient is appropriate admitted for chest pressure. Rule out myocardial infarction and watch for any type of enzymatic elevation. Question need for echocardiogram with carotid Doppler if cardiac workup is negative. Otherwise, reconcile home medications. Appreciate cardiology input. See orders otherwise.
[2018-03-08 11:36] VITALS: BP 139/84; TEMP 98.4
--- NOTE | 2018-03-08 12:03 | NM ---
EXAMINATION TYPE: NM stress lexiscan cardiolite DATE OF EXAM: 03/08/2018 COMPARISON: NONE HISTORY: Chest pain TECHNIQUE: After the intravenous administration of 10.1 mCi Tc 99m Sestamibi - Cardiolite resting SP ECT images acquired 60 minutes post injection. The patient received 0.4mg Lexiscan, 24.9 mCi Tc 99m Sestamibi - Stress images obtained [address] injection FINDINGS: Review of stress and rest SPECT images demonstrates no distinct perfusion abnormality. Gated analysi s shows normal wall motion with an estimated left ventricular ejection fraction of 62 %. IMPRESSION: No scintigraphic evidence for reversible ischemia.
[2018-03-08 12:24] VITALS: PULSE 58
[2018-03-08 12:24] LABS: Hemoglobin A1C 5.3 % (4.0-6.0)
--- NOTE | 2018-03-08 13:48 | EST ---
EXERCISE STRESS AGE: 58 SEX: F HT: 4 foot 11 WT: 225 PROTOCOL: Lexiscan Cardiolite HEART RATE REST: 68 BLOOD PRESSURE REST: 145/95 MAXIMUM HEART RATE ACHIEVED: 96 MAXIMUM BLOOD PRESSURE: 193/93 85% MPHR: 136 100% MPHR: 160 INDICATIONS: Chest pain. CLINICAL INFORMATION: Baseline rhythm is sinus mechanism, rate of 68, normal axis, intervals, normal echocardiogram. Baseline blood pressure are 145/95 mmHg. Patient received injection of Lexiscan. Electrocardiographic monitoring revealed no evidence of diagnostic ischemic ST deviation. Cardiolite was injected per protocol. CONCLUSION: 1. Nondiagnostic electrocardiograph stress testing. 2. Nuclear images will be reported separately. MMODL / IJN: [id number] /
== END 2018-03-08 14:02 | disposition home or self-care (01) ==
LOC: EC 06:27 → 3OBS 08:13
PROVIDERS: ADMIT Family Medicine; ATTEND Family Medicine
DX: R07.89 Other chest pain (principal); R55 Syncope and collapse; M79.602 Pain in left arm; R11.0 Nausea; R42 Dizziness and giddiness; M54.2 Cervicalgia; R20.2 Paresthesia of skin; R06.09 Other forms of dyspnea; I10 Essential (primary) hypertension; E78.5 Hyperlipidemia, unspecified; E03.9 Hypothyroidism, unspecified; E11.9 Type 2 diabetes mellitus without complications; Z79.890 Hormone replacement therapy; Z79.899 Other long term (current) drug therapy; Z91.040 Latex allergy status; Z91.018 Allergy to other foods; Z98.84 Bariatric surgery status; Z90.49 Acquired absence of other specified parts of digestive tract; Z87.891 Personal history of nicotine dependence; Z82.49 Family history of ischemic heart disease and other diseases of the circulatory system; E66.9 Obesity, unspecified; Z68.42 Body mass index [BMI] 45.0-49.9, adult
CPT/HCPCS: 99285; 96376 ×2; 96365 ×2; 36415; 93005; 93017; 85379; 80061; 80053; 82550; 82553; 83735; 84484; 85025; 85049; 85610; 85730; 83036; 71046; 78452; G0378 ×2; C8929; A9500; J1644 ×2; J2785; Q9950; 93306

== ENCOUNTER 2018-06-26 20:00 | Emergency (ER) | payer MEDICARE, OTHER ==
--- NOTE | 2018-06-26 22:03 | ED ---
General Adult HPI - General Chief complaint: Extremity Problem,Nontraumatic Stated complaint: Leg pain Time Seen by Provider: 06/26/18 21:48 Source: patient, family, EMS, RN notes reviewed, old records reviewed Mode of arrival: EMS Limitations: no limitations - History of Present Illness Initial comments: 58-year-old female presenting for evaluation pain and swelling in the left leg. She states the pain begins at her ankle and progresses to her upper calf. She has no reported injury or overuse. No history of DVT. She is presenting with concern for DVT. No chest pain or dyspnea. No abdominal pain. No history of heart failure, no history of hypertension or diabetes. No history of CAD. Patient denies erythema. Denies fever or chills. - Related Data Home Medications Medication Instructions Recorded Confirmed Hydrochlorothiazide 25 mg PO QAM 09/09/17 06/26/18 Levothyroxine Sodium [Synthroid] 150 mcg PO QAM 09/09/17 06/26/18 Allergies Allergy/AdvReac Type Severity Reaction Status Date / Time banana Allergy Anaphylaxis Verified 06/26/18 21:48 latex Allergy Rash/Hives Verified 06/26/18 21:48 Review of Systems ROS Statement: Those systems with pertinent positive or pertinent negative responses have been documented in the HPI. ROS Other: All systems not noted in ROS Statement are negative. Past Medical History Past Medical History: Hypertension, Thyroid Disorder Additional Past Medical History / Comment(s): Hypothyroid History of Any Multi-Drug Resistant Organisms: None Reported Past Surgical History: Bariatric Surgery, Cholecystectomy, Joint Replacement, Orthopedic Surgery, Tonsillectomy Additional Past Surgical History / Comment(s): Gastric bypass, revision of gastric bypass unsuccessful, total R knee arthroplasty, colonoscopy. Past Anesthesia/Blood Transfusion Reactions: No Reported Reaction Past Psychological History: No Psychological Hx Reported Smoking Status: Never smoker Past Alcohol Use History: None Reported Past Drug Use History: None Reported - Past Family History Father Family Medical History: Coronary Artery Disease (CAD), CVA/TIA Additional Family Medical History / Comment(s): Father is . Mother Family Medical History: Coronary Artery Disease (CAD), CVA/TIA Additional Family Medical History / Comment(s): Mother is . General Exam Limitations: no limitations General appearance: alert, in no apparent distress Head exam: Present: atraumatic, normocephalic Eye exam: Present: normal appearance, PERRL, EOMI ENT exam: Present: normal exam Neck exam: Present: normal inspection. Absent: tenderness, meningismus Respiratory exam: Present: normal lung sounds bilaterally. Absent: respiratory distress, wheezes Cardiovascular Exam: Present: regular rate, normal rhythm GI/Abdominal exam: Present: soft. Absent: distended, tenderness, guarding Extremities exam: Present: normal capillary refill, calf tenderness, other ( Soft tissue swelling, nonpitting in the lateral aspect of the distal leg anterior surface. No erythema, no induration, no fluctuance. There is some calf tenderness. Distal pulses are intact, 2+ DP and PT pulses in the left lower extremity.). Absent: pedal edema Neurological exam: Present: alert, oriented X3, CN II-XII intact. Absent: motor sensory deficit Psychiatric exam: Present: normal affect, normal mood Skin exam: Present: warm, dry, intact. Absent: cyanosis, diaphoretic Course Vital Signs 06/26/18 20:01 Temperature 97.9 F Pulse Rate 69 Respiratory 20 Rate Blood Pressure 161/63 O2 Sat by Pulse 100 Oximetry Medical Decision Making - Medical Decision Making 58-year-old female presenting with swelling in the left lower extremity, concern for DVT. There is some mild soft tissue swelling, no induration, no erythema, no signs of infection. Ultrasound is obtained to rule out DVT, this is negative for DVT. X-rays also obtained, no acute bony abnormality identified. Patient will elevate the extremity, and follow-up with primary care physician. Return with worsening or changing symptoms. Disposition Clinical Impression: Lower extremity edema Disposition: HOME SELF-CARE Condition: Good Instructions: Leg Edema (ED) Is patient prescribed a controlled substance at d/c from ED?: No Referrals: Jorge Mcfarlane MD [Primary Care Provider] - 1-2 days Time of Disposition: 23:28
--- NOTE | 2018-06-26 22:33 | XR ---
EXAMINATION TYPE: XR tibia fibula LT DATE OF EXAM: 06/26/2018 COMPARISON: NONE HISTORY: Ankle pain TECHNIQUE: 2 views FINDINGS: Tibia and fibula appear intact. I see no fracture nor dislocation. There is a large plantar calcaneal spur. Ankle mortise is anatomic. IMPRESSION: Calcaneal spurring. No fracture.
--- NOTE | 2018-06-26 23:17 | US ---
EXAMINATION TYPE: US venous doppler duplex LE LT DATE OF EXAM: 06/26/2018 10:52 PM COMPARISON: NONE CLINICAL HISTORY: Pain. Edema. SIDE PERFORMED: Left TECHNIQUE: The lower extremity deep venous system is examined utilizing real time linear array sonog angela with graded compression, doppler sonography and color-flow sonography. VESSELS IMAGED: External Iliac Vein (EIV) Common Femoral Vein Deep Femoral Vein Greater Saphenous Vein * Femoral Vein Popliteal Vein Small Saphenous Vein * Proximal Calf Veins (* superficial vessels) Left Leg: Negative for DVT No evidence of DVT left leg. IMPRESSION: Normal left leg duplex venous sonogram.
[2018-06-27 00:08] VITALS: BP 159/72; PULSE 70; RESP 18; TEMP 97.1
== END 2018-06-27 00:08 | disposition home or self-care (01) ==
LOC: EC 20:00
DX: R60.0 Localized edema (principal); I10 Essential (primary) hypertension; E03.9 Hypothyroidism, unspecified; Z96.651 Presence of right artificial knee joint; Z79.899 Other long term (current) drug therapy; Z91.018 Allergy to other foods; Z91.040 Latex allergy status
CPT/HCPCS: 99285

== ENCOUNTER → 2019-02-14 | Outpatient (CLI) | payer MEDICARE, OTHER ==
[~2019-02-14] MED LIST changes: -ACETAMINOPHEN TAB 500 MG TAB PO ONE; -BISACODYL 10 MG SUPP RECTAL PRN; -DIAZEPAM 5 MG TAB PO PRN; +DOBUTamine DRIP for NUC MED 500 MG in DEXTROSE/WATER 1 250ML.BAG IV ONE; -HYDROcodone/APAP 5-325MG 1 EACH TAB PO PRN; -LIDOCAINE 1% 20 ML VIAL (10MG/ML) FOR IV START INTRADERMA PRN; -MAGNESIUM HYDROXIDE 2,400 MG/10 ML CUP PO PRN; -MELOXICAM 7.5 MG TAB PO ONE; -MORPHINE SULFATE 4 MG/ML SYRINGE IV PRN; -MORPHINE SULFATE 4 MG/ML SYRINGE IVP PRN; -NA PHOS,M-B/NA PHOS,DI-BA 133 ML ENEMA RECTAL PRN; -NALOXONE 0.4 MG/ML 1 ML VIAL IV PRN; -ONDANSETRON 4 MG/2 ML VIAL IVP ONE; -ONDANSETRON 4 MG/2 ML VIAL IVP PRN; -TRANEXAMIC ACID 1,000 MG in SODIUM CHLORIDE 0.9% 50 ML IVPB ONE
--- NOTE | 2019-02-14 14:21 | ECHOS ---
STRESS ECHOCARDIOGRAM INDICATIONS: Hypertension MEDICATIONS: Synthroid, HCTZ BASELINE HEART RATE: 70 BASELINE BLOOD PRESSURE: 153/73 MAXIMUM HEART RATE: 139 MAXIMUM BLOOD PRESSURE: 212/80 85% MPHR: 135 100% MPHR: 159 MAXIMUM STAGE REACHED: 4 TOTAL EXERCISE TIME: 10:10 CLINICAL INFORMATION: Baseline EKG revealed normal sinus rhythm without significant ST-T changes. With dobutamine administration, heart rate went up from 70 to 139 beats per minute which is more than 85% of predicted maximal. Patient did not have any angina. There was no arrhythmia. EKG did not reveal any ST-segment changes to indicate ischemia. Upsloping nonspecific ST-segment changes were noted. By EKG criteria, this is unremarkable dobutamine stress test. Baseline echo images revealed normal wall motion and wall thickening of all segments. With dobutamine administration as per protocol, there was progressive increase in contractility noted with suggesting that there is no evidence of stress-induced ischemia on this dobutamine echocardiogram. FINAL IMPRESSION: 1. By EKG criteria, this is unremarkable dobutamine stress test. 2. Normal dobutamine stress echocardiogram without evidence of ischemia. MMODL / IJN: [id number] /
== END | disposition home or self-care (01) ==
LOC: RADNMMAIN 09:40
PROVIDERS: ATTEND Family Medicine
DX: I10 Essential (primary) hypertension (principal); Z91.040 Latex allergy status
CPT/HCPCS: 93351

== ENCOUNTER 2019-02-17 16:14 | Emergency (ER) | payer MEDICARE, OTHER ==
[2019-02-17] MEDS ORDERED: SODIUM CHLORIDE 0.9% 500 ML 500 ML IV STA (16:33)
--- NOTE | 2019-02-17 16:40 | ED ---
General Adult HPI - General Chief complaint: Chest Pain Stated complaint: chest pain Time Seen by Provider: 02/17/19 16:25 Source: patient Mode of arrival: wheelchair Limitations: no limitations - History of Present Illness Initial comments: Dictation was produced using [employer] dictation software. please excuse any grammatical, word or spelling errors. Chief Complaint: 59-year-old female presents with chief complaint of chest pain and dizziness. History of Present Illness: Patient 59-year-old female she states she woke up this morning with sharp chest pain that radiates to the back. She states that her pain is constant. Patient also reports onset of dizziness along with this chest pain. Patient denies any numbness and paresthesias in the body. She does report that he rates to her back and up. Starts her left neck. Patient has any ataxia. She was recently started on inhaler. Patient had a stress test that was performed 4 days ago and was found to be unremarkable. Patient's past medical history of hypertension and thyroid disease. She had multiple surgeries in the past. Denies any fever or constitutional symptoms. The ROS documented in this emergency department record has been reviewed and confirmed by me. Those systems with pertinent positive or negative responses have been documented in the HPI. All other systems are other negative and/or noncontributory. PHYSICAL EXAM: General Impression: Alert and oriented x3, not in acute distress HEENT: Normocephalic atraumatic, extra-ocular movements intact, pupils equal and reactive to light bilaterally, mucous membranes moist. Cardiovascular: Heart regular rate and rhythm, S1&S2 audible, no murmurs, rubs or gallops Chest: Lungs clear to auscultation bilaterally, no rhonchi, no wheeze, no rales Abdomen: Bowel sounds present, abdomen soft, non-tender, non-distended, no organomegaly Musculoskeletal: Pulses present and equal in all extremities, no peripheral edema Motor: no focal deficits noted Neurological: CN II-XII grossly intact, no focal motor or sensory deficits noted Skin: Intact with no visualized rashes Psych: Normal affect and mood ED course: 59 old female presents with chief complaint of chest pain and dizziness. All signs upon arrival are within acceptable limits. Dobutamine stress echo was reviewed from February 14 vital be unremarkable. This is technically an acceptable study and patient met heart rate requirements. Laboratory evaluation obtained. CBC unremarkable coag panel negative. D-dimer is 0.29. Rest of labs are grossly unremarkable. Chest x-ray is nonacute. Patient given fluids and Toradol. Patient reevaluated found to be in stable medical condition. No concerns for acute coronary syndrome given that patient's clinical presentation is atypical and she had a negative stress test recently. Patient discharged told to follow-up with primary care physician. EKG interpretation: Ventricular rate 76, normal sinus rhythm,. 170, QS 94, QTC 463. No OH prolongation, no QTC prolongation, no ST or T-wave changes noted. Overall, this EKG is unremarkable - Related Data Home Medications Medication Instructions Recorded Confirmed Hydrochlorothiazide 25 mg PO DAILY 09/09/17 02/17/19 Levothyroxine Sodium [Synthroid] 150 mcg PO DAILY 09/09/17 02/17/19 Allergies Allergy/AdvReac Type Severity Reaction Status Date / Time banana Allergy Anaphylaxis Verified 02/17/19 16:42 latex Allergy Rash/Hives Verified 02/17/19 16:42 Review of Systems ROS Statement: Those systems with pertinent positive or pertinent negative responses have been documented in the HPI. ROS Other: All systems not noted in ROS Statement are negative. Past Medical History Past Medical History: Hypertension, Thyroid Disorder Additional Past Medical History / Comment(s): Hypothyroid History of Any Multi-Drug Resistant Organisms: None Reported Past Surgical History: Bariatric Surgery, Cholecystectomy, Joint Replacement, Orthopedic Surgery, Tonsillectomy Additional Past Surgical History / Comment(s): Gastric bypass, revision of gastric bypass unsuccessful, total R knee arthroplasty, colonoscopy. Past Anesthesia/Blood Transfusion Reactions: No Reported Reaction Past Psychological History: No Psychological Hx Reported Smoking Status: Never smoker Past Alcohol Use History: None Reported Past Drug Use History: None Reported - Past Family History Father Family Medical History: Coronary Artery Disease (CAD), CVA/TIA Additional Family Medical History / Comment(s): Father is . Mother Family Medical History: Coronary Artery Disease (CAD), CVA/TIA Additional Family Medical History / Comment(s): Mother is . General Exam Limitations: no limitations Course Vital Signs 02/17/19 02/17/19 16:19 16:30 Temperature 97.9 F Pulse Rate 73 Pulse Rate [ 76 [employer] Of [employer] ] Respiratory 16 Rate Blood Pressure 161/90 O2 Sat by Pulse 98 Oximetry Medical Decision Making - Lab Data Result diagrams: 02/17/19 16:31 02/17/19 16:31 Lab Results 02/17/19 02/17/19 02/17/19 Range/Units 16:31 16:31 16:31 WBC 5.2 (3.8-10.6) k/uL RBC 4.02 (3.80-5.40) m/uL Hgb 11.1 L (11.4-16.0) gm/dL Hct 35.2 (34.0-46.0) % MCV 87.7 (80.0-100.0) fL MCH 27.7 (25.0-35.0) pg MCHC 31.6 (31.0-37.0) g/dL RDW 17.1 H (11.5-15.5) % Plt Count 294 (150-450) k/uL Neutrophils % 53 % Lymphocytes % 36 % Monocytes % 4 % Eosinophils % 4 % Basophils % 1 % Neutrophils # 2.8 (1.3-7.7) k/uL Lymphocytes # 1.9 (1.0-4.8) k/uL Monocytes # 0.2 (0-1.0) k/uL Eosinophils # 0.2 (0-0.7) k/uL Basophils # 0.0 (0-0.2) k/uL Anisocytosis Slight PT 10.6 (9.0-12.0) sec INR 1.0 (<1.2) APTT 23.6 (22.0-30.0) sec D-Dimer 0.29 (<0.60) mg/L FEU Sodium 139 (137-145) mmol/L Potassium 4.4 (3.5-5.1) mmol/L Chloride 109 H (98-107) mmol/L Carbon Dioxide 24 (22-30) mmol/L Anion Gap 6 mmol/L BUN 15 (7-17) mg/dL Creatinine 0.58 (0.52-1.04) mg/dL Est GFR (CKD-EPI)AfAm >90 (>60 ml/min/1.73 sqM) Est GFR (CKD-EPI)NonAf >90 (>60 ml/min/1.73 sqM) Glucose 89 (74-99) mg/dL Calcium 9.0 (8.4-10.2) mg/dL Magnesium 1.9 (1.6-2.3) mg/dL Total Bilirubin 0.4 (0.2-1.3) mg/dL AST 24 (14-36) U/L ALT 21 (9-52) U/L Alkaline Phosphatase 90 (38-126) U/L Troponin I (0.000-0.034) ng/mL Total Protein 6.6 (6.3-8.2) g/dL Albumin 3.9 (3.5-5.0) g/dL 02/17/19 Range/Units 16:31 WBC (3.8-10.6) k/uL RBC (3.80-5.40) m/uL Hgb (11.4-16.0) gm/dL Hct (34.0-46.0) % MCV (80.0-100.0) fL MCH (25.0-35.0) pg MCHC (31.0-37.0) g/dL RDW (11.5-15.5) % Plt Count (150-450) k/uL Neutrophils % % Lymphocytes % % Monocytes % % Eosinophils % % Basophils % % Neutrophils # (1.3-7.7) k/uL Lymphocytes # (1.0-4.8) k/uL Monocytes # (0-1.0) k/uL Eosinophils # (0-0.7) k/uL Basophils # (0-0.2) k/uL Anisocytosis PT (9.0-12.0) sec INR (<1.2) APTT (22.0-30.0) sec D-Dimer (<0.60) mg/L FEU Sodium (137-145) mmol/L Potassium (3.5-5.1) mmol/L Chloride (98-107) mmol/L Carbon Dioxide (22-30) mmol/L Anion Gap mmol/L BUN (7-17) mg/dL Creatinine (0.52-1.04) mg/dL Est GFR (CKD-EPI)AfAm (>60 ml/min/1.73 sqM) Est GFR (CKD-EPI)NonAf (>60 ml/min/1.73 sqM) Glucose (74-99) mg/dL Calcium (8.4-10.2) mg/dL Magnesium (1.6-2.3) mg/dL Total Bilirubin (0.2-1.3) mg/dL AST (14-36) U/L ALT (9-52) U/L Alkaline Phosphatase (38-126) U/L Troponin I <0.012 (0.000-0.034) ng/mL Total Protein (6.3-8.2) g/dL Albumin (3.5-5.0) g/dL Disposition Clinical Impression: Chest pain Disposition: HOME SELF-CARE Condition: Good Instructions (If sedation given, give patient instructions): Chest Pain (ED) Is patient prescribed a controlled substance at d/c from ED?: No Referrals: Jorge Mcfarlane MD [Primary Care Provider] - 1-2 days Time of Disposition: 17:42
[2019-02-17 16:48] LABS: Anisocytosis Slight; Basophils % (A) 1 %; Eosinophils # (A) 0.2 k/uL (0-0.7); Eosinophils % (A) 4 %; HCT 35.2 % (34.0-46.0); HGB 11.1 gm/dL (11.4-16.0); Lymphocytes # (A) 1.9 k/uL (1.0-4.8); Lymphocytes % (A) 36 %; MCH 27.7 pg (25.0-35.0); MCHC 31.6 g/dL (31.0-37.0); MCV 87.7 fL (80.0-100.0); Mean Platelet Volume 7.1; Monocytes # (A) 0.2 k/uL (0-1.0); Monocytes % (A) 4 %; Neutrophils # (A) 2.8 k/uL (1.3-7.7); Neutrophils % (A) 53 %; Platelet Count 294 k/uL (150-450); RBC 4.02 m/uL (3.80-5.40); RDW 17.1 % (11.5-15.5); WBC 5.2 k/uL (3.8-10.6)
[2019-02-17 17:02] LABS: ALT 21 U/L (9-52); AST 24 U/L (14-36); African American GFR (CKD) >90 (>60 ml/min/1.73 sqM); Albumin 3.9 g/dL (3.5-5.0); Alkaline Phosphatase 90 U/L (38-126); Anion Gap 6 mmol/L; Blood Urea Nitrogen 15 mg/dL (7-17); Carbon Dioxide 24 mmol/L (22-30); Chloride 109 mmol/L (98-107); D-Dimer 0.29 mg/L FEU (<0.60); Glucose 89 mg/dL (74-99); Magnesium 1.9 mg/dL (1.6-2.3); Partial Thromboplastin Time 23.6 sec (22.0-30.0); Potassium 4.4 mmol/L (3.5-5.1); Prothrombin Time 10.6 sec (9.0-12.0); Sodium 139 mmol/L (137-145); Total Bilirubin 0.4 mg/dL (0.2-1.3); Total Protein 6.6 g/dL (6.3-8.2)
--- NOTE | 2019-02-17 17:05 | XR ---
EXAMINATION TYPE: XR chest 2V DATE OF EXAM: 02/17/2019 COMPARISON: Chest x-ray March 07, 2018 HISTORY: Chest pain and dizziness since this morning. TECHNIQUE: Frontal and lateral views of the chest are obtained. FINDINGS: Overlying EKG leads are present. There is chronic parenchymal change without suspicious foc al air space opacity, pleural effusion, or pneumothorax seen. The cardiac silhouette size remains en larged. The osseous structures are intact. IMPRESSION: Chronic parenchymal changes and cardiomegaly without acute pulmonary process.
[2019-02-17] MEDS ORDERED: ONDANSETRON 4 MG/2 ML VIAL IVP STA (17:10)
[2019-02-17] MEDS ORDERED: KETOROLAC 30 MG/ML 1 ML VIAL IVP STA (17:29)
[2019-02-17 18:04] VITALS: BP 150/82; PULSE 70; RESP 18; TEMP 98
== END 2019-02-17 18:02 | disposition home or self-care (01) ==
LOC: EC 16:14
DX: R07.9 Chest pain, unspecified (principal); R42 Dizziness and giddiness; M54.9 Dorsalgia, unspecified; E03.9 Hypothyroidism, unspecified; I10 Essential (primary) hypertension; Z79.899 Other long term (current) drug therapy; Z79.890 Hormone replacement therapy; Z91.018 Allergy to other foods; Z91.040 Latex allergy status; Z96.651 Presence of right artificial knee joint; Z82.49 Family history of ischemic heart disease and other diseases of the circulatory system
CPT/HCPCS: 36415; 93005; 85379; 80053; 83735; 84484; 85025; 85610; 85730; 71046; 99285; 96374; J1885

== ENCOUNTER 2019-03-09 14:12 | Emergency (ER) | payer MEDICARE, OTHER ==
[2019-03-09 14:29] VITALS: BP 162/82; PULSE 99; RESP 18; TEMP 98.2
--- NOTE | 2019-03-09 15:45 | CT ---
EXAMINATION TYPE: CT brain dre prado DATE OF EXAM: 03/09/2019 COMPARISON: 04/29/15 HISTORY: Hit top of head today. CT DLP: 1429.[address] of the brain was performed. The ventricles, basal cisterns and sulci overlying the cerebral convexities demonstrate mild enlargem ent. There is no evidence for intracranial hemorrhage or sulcal effacement. There is decreased attenuatio n about the periventricular white matter and deep white matter of both cerebral hemispheres, compatib le with chronic small vessel ischemia. No mass effects are seen. If symptoms persist consider MRI. Osseous calvarium is intact. IMPRESSION: 1. Age related atrophic and chronic small vessel ischemic change without acute intracranial process seen at this time. CT Cervical Spine: Unenhanced CT of the cervical spine was performed with bone and soft tissue window settings submitted . Coronal and sagittal reconstruction is obtained. There is normal alignment and prevertebral soft tissues. No evidence for acute cervical fracture . Scattered degenerative disc disease and spondylosis. Biapical scarring. IMPRESSION: 1. No evidence for acute fracture or subluxation of the cervical spine.
[2019-03-09] MEDS ORDERED: ACETAMINOPHEN TAB 325 MG TAB PO STA (16:06)
[2019-03-09] MEDS ORDERED: DIPH,PERTUS(ACELL)TETVAC-LF 0.5 ML VIAL IM ONE (16:30)
--- NOTE | 2019-03-09 17:02 | ED ---
General Adult HPI - General Source: patient, RN notes reviewed, old records reviewed Mode of arrival: ambulatory Limitations: no limitations <Bonifacio Avalos - Last Filed: 03/09/19 16:57> <Rain Landis - Last Filed: 03/16/19 23:21> - General Chief complaint: Wound/Laceration Stated complaint: Head Lac Time Seen by Provider: 03/09/19 14:30 - History of Present Illness Initial comments: 59-year-old female patient with chief complaint laceration to crown of head, headache. She reports that she was stepping into her vehicle when she hit the crown of her head on a rail from the car. Patient reports that she had a small laceration in a mild amount of bleeding. Patient reports that at the day went on she began to have a generalized headache. Patient port that she had some mild diplopia which resolved shortly after. Patient undecided presented to the ER. Patient denies any use of blood thinners. Denies any other complaints. Systemic: Pt denies fatigue, fever/chills, rash. Pt denies weakness, night sweats, weight loss. Neuro: Pt denies syncope or pre-syncope. HEENT: Pt denies ocular discharge or irritation, otalgia, rhinorrhea, pharyngitis or notable lymphadenopathy. Cardiopulmonary: Pt denies chest pain, SOB, heart palpitations, dyspnea on exertion. Abdominal/GI: Pt denies abdominal pain, n/v/d. : Pt denies dysuria, burning w/ urination, frequency/urgency. Denies new onset urinary or bowel incontinence. MSK: Pt denies myalgia, loss of strength or function in extremities. Neuro: Pt denies new onset weakness, paresthesias. (Bonifacio Avalos) - Related Data Home Medications Medication Instructions Recorded Confirmed Hydrochlorothiazide 25 mg PO DAILY 09/09/17 02/17/19 Levothyroxine Sodium [Synthroid] 150 mcg PO DAILY 09/09/17 02/17/19 Allergies Allergy/AdvReac Type Severity Reaction Status Date / Time banana Allergy Anaphylaxis Verified 03/09/19 14:29 latex Allergy Rash/Hives Verified 03/09/19 14:29 Review of Systems ROS Other: All systems not noted in ROS Statement are negative. <Bonifacio Avalos - Last Filed: 03/09/19 16:57> ROS Other: All systems not noted in ROS Statement are negative. <Rain Landis Rocío - Last Filed: 03/16/19 23:21> ROS Statement: Those systems with pertinent positive or pertinent negative responses have been documented in the HPI. Past Medical History Past Medical History: Hypertension, Thyroid Disorder Additional Past Medical History / Comment(s): Hypothyroid History of Any Multi-Drug Resistant Organisms: None Reported Past Surgical History: Bariatric Surgery, Cholecystectomy, Joint Replacement, Or thopedic Surgery, Tonsillectomy Additional Past Surgical History / Comment(s): Gastric bypass, revision of gastric bypass unsuccessful, total R knee arthroplasty, colonoscopy. Past Anesthesia/Blood Transfusion Reactions: No Reported Reaction Past Psychological History: No Psychological Hx Reported Smoking Status: Never smoker Past Alcohol Use History: None Reported Past Drug Use History: None Reported - Past Family History Father Family Medical History: Coronary Artery Disease (CAD), CVA/TIA Additional Family Medical History / Comment(s): Father is . Mother Family Medical History: Coronary Artery Disease (CAD), CVA/TIA Additional Family Medical History / Comment(s): Mother is . <Bonifacio Avalos - Last Filed: 03/09/19 16:57> General Exam Limitations: no limitations <Bonifacio Avalos - Last Filed: 03/09/19 16:57> - General Exam Comments Initial Comments: Constitutional: NAD, AOX3, Pt has pleasant affect. HEENT: NC/AT, trachea midline, neck supple, no lymphadenopathy. Posterior pharynx non erythematous, without exudates. External ears appear normal, without discharge. Mucous membranes moist. Eyes PERRLA, EOM intact. There is no scleral icterus. No pallor noted. IOP average 15 bilaterally. Cardiopulmonary: RRR, no murmurs, rubs or gallops, no JVD noted. Lungs CTAB in anterior and posterior alvarado. No peripheral edema. Abdominal exam: Abdomen soft and non-distended. Abdomen non-tender to palpation in all 4 quadrants. Bowel sounds active in LLQ. No hepatosplenomegaly. No ecchymosis Neuro: CN II-XII intact. No nuchal rigidity. No raccon eyes, no silverio sign, no hemotympanum. No cervical spinal tenderness. Repeat Neurologic exam within normal limits. MSK: 2 cm laceration at apex of head, closed with 2 hira. No posterior calf tenderness bilaterally, homans sign negative bilaterally. Posterior tibialis and radial pulse +2 bilaterally. Sensation intact in upper and lower extremities. Full active ROM in upper and lower extremities, 5/5 stregnth. (Bonifacio Avalos) Course Vital Signs 03/09/19 14:27 Temperature 98.2 F Pulse Rate 99 Respiratory 18 Rate Blood Pressure 162/82 O2 Sat by Pulse 99 Oximetry Procedures - Laceration Laceration #1 Consent Obtained: verbal consent Indication: laceration Site: scalp Size (cm): 2 Description: linear Depth: simple, single layer Pre-repair: wound explored Type of Sutures: other (hira) Number of Sutures: 2 Patient Tolerated Procedure: well, no complications <Bonifacio Avalos - Last Filed: 03/09/19 16:57> Medical Decision Making <Bonifacio Avalos - Last Filed: 03/09/19 16:57> <Rain Landis - Last Filed: 03/16/19 23:21> - Medical Decision Making 20 oh film patient positive for laceration to apex of head, headache, mild changes in vision which resolved shortly after. Patient will signs stable, afebrile. Physical exam for normal neurologic exam 2, small laceration, appro ximated with 2 hira. Patient tetanus updated. CT of brain C-spine did not display acute process. Patient's ocular pressure average of 15 bilaterally. Patient headache resolved with tylenol, pt will f/u with PCP return to ER if condition worsens. Case discussed and pt seen by Dr. Landis. (Bonifacio Avalos) I evaluated the patient myself. She demonstrated no focal neurologic deficits. Laceration was cleansed, inspected, and stapled. There was no underlying deep structure involvement. Multiple neurologic assessments were performed. She needs to follow up with her PCP. Return to the ED for any new or worsening symptoms. Patient was discharged home ambulatory in stable condition. (Rain Landis) Disposition Is patient prescribed a controlled substance at d/c from ED?: No <Bonifacio Avalos - Last Filed: 03/09/19 16:57> <Rain Landis - Last Filed: 03/16/19 23:21> Clinical Impression: Laceration, Concussion Disposition: HOME SELF-CARE Condition: Stable Instructions (If sedation given, give patient instructions): Laceration (ED), Concussion (ED) Additional Instructions: Patient to adhere to previously discussed treatment plan and will take medication(s) as directed. Patient to follow up with PCP in 1-2 days. Patient to return to ED if symptoms do not improve. Return to ER if condition worsens. Please return for suture removal: Hand: 7-10 days Face: 5 days Chest/abdomen: 12-14 days Extremities: 7-10 days Scalp: 7 days Eyebrow: 5-7 days Foot/sole: 12-14 days Please monitor for signs and symptoms of infection including: redness, warmth, drainage, discharge. Please return to ED if these signs or symptoms occur, new signs or symptoms develop or if condition worsens in anyway. Referrals: Jorge Mcfarlane MD [Primary Care Provider] - 1-2 days
== END 2019-03-09 17:29 | disposition home or self-care (01) ==
LOC: EC 14:12
DX: S01.01XA Laceration without foreign body of scalp, initial encounter (principal); S06.0X9A Concussion with loss of consciousness of unspecified duration, initial encounter; Z23 Encounter for immunization; I10 Essential (primary) hypertension; E03.9 Hypothyroidism, unspecified; Z79.899 Other long term (current) drug therapy; Z91.018 Allergy to other foods; Z91.040 Latex allergy status; Z98.84 Bariatric surgery status; Z96.651 Presence of right artificial knee joint; W22.8XXA Striking against or struck by other objects, initial encounter; Y92.810 Car as the place of occurrence of the external cause
CPT/HCPCS: 12001; 70450; 72125; 90471; 90715; 99284

== ENCOUNTER → 2019-12-13 | Outpatient (CLI) | payer MEDICARE, OTHER ==
--- NOTE | 2019-12-13 12:17 | MM ---
Reason for exam: clinical finding. Last mammogram was performed 4 years and 2 months ago. History: Patient is postmenopausal. Family history of breast cancer in paternal aunt. 2 benign excisional biopsies of the left breast, 1998. Physical Findings: Nurse did not find any significant physical abnormalities on exam. MG 3D Diag Mammo W/Cad WANDA Bilateral CC and MLO view(s) were taken. ML, spot compression CC, and spot compression MLO view(s) were taken of the right breast. Prior study comparison: September 29, 2015, bilateral MG screening mammo w CAD. February 06, 2014, bilateral MG screening mammo w CAD. There are scattered fibroglandular densities. Benign appearing bilateral calcifications. No suspicious abnormality on the left breast. Right upper outer quadrant focal asymmetry resolves on additional spot compression views, precautionary ultrasound will be performed. These results were verbally communicated with the patient and result sheet given to the patient on 12/13/19. ASSESSMENT: Incomplete: need additional imaging evaluation, BI-RAD 0 RECOMMENDATION: Ultrasound of both breasts. (right upper outer quadrant, left area of pain)
--- NOTE | 2019-12-13 12:20 | USB ---
Reason for exam: additional evaluation requested from abnormal screening. History: Patient is postmenopausal. Family history of breast cancer in paternal aunt. 2 benign excisional biopsies of the left breast, 1998. US Breast Limited BILAT Technologist: Ana Mckeon Right limited breast ultrasound including focal area of concern, retroareolar and axilla demonstrates no cystic or solid lesion seen. Left limited breast ultrasound including focal area of concern, retroareolar and axilla demonstrates no cystic or solid lesion seen. No suspicious sonographic finding. These results were verbally communicated with the patient and result sheet given to the patient on 12/13/19. ASSESSMENT: Negative, BI-RAD 1 RECOMMENDATION: Routine screening mammogram of both breasts in 1 year.
== END | disposition home or self-care (01) ==
LOC: RADMAMWWP 10:23
PROVIDERS: ATTEND Family Medicine
DX: N64.4 Mastodynia (principal); R92.8 Other abnormal and inconclusive findings on diagnostic imaging of breast
CPT/HCPCS: 77066; 76642; G0279; 77062

== ENCOUNTER 2020-01-21 08:21 | Emergency (ER) | payer MEDICARE, OTHER ==
[2020-01-21 08:29] VITALS: BP 145/73; RESP 18
[2020-01-21] MEDS ORDERED: HYDROcodone/APAP 5-325MG 1 EACH TAB PO STA (08:38)
[2020-01-21] MEDS ORDERED: ORPHENADRINE 30 MG/ML 2 ML VIAL IM STA (08:43)
--- NOTE | 2020-01-21 08:43 | ED ---
Fall HPI - General Chief Complaint: Fall Stated Complaint: side pain/headache Time Seen by Provider: 01/21/20 08:30 Source: patient, RN notes reviewed, old records reviewed Mode of arrival: ambulatory - History of Present Illness Initial Comments: Patient is a 60-year-old female presents emergency room today for evaluation with T wave a fall yesterday from a pool ladder. She reports that she was on the fourth step of the pool ladder and was about to step into the pool when the ladder started to tip. She reports that the ladder fell and Patient landed with her left side of her ribs on the edge of the pool. She also states that she hit her head on the ground. She had no loss of consciousness. She reports she's been feeling dizzy and lightheaded since the injury last night. Her main complaint is left rib pain worse with taking a deep breath and movement. Patient states she has no abdominal or back pain. Patient states that she is not on any blood thinning medications. - Related Data Home Medications Medication Instructions Recorded Confirmed Hydrochlorothiazide 25 mg PO DAILY 09/09/17 01/21/20 Levothyroxine Sodium [Synthroid] 150 mcg PO DAILY 09/09/17 01/21/20 Albuterol Inhaler [Ventolin Hfa 2 puff INHALATION RT-QID PRN 01/21/20 01/21/20 Inhaler] Previous Rx's Medication Instructions Recorded Cyclobenzaprine [Flexeril] 10 mg PO TID #12 tab 01/21/20 Ibuprofen [Motrin] 600 mg PO Q6HR PRN #20 tab 01/21/20 Allergies Allergy/AdvReac Type Severity Reaction Status Date / Time banana Allergy Anaphylaxis Verified 01/21/20 09:26 latex Allergy Rash/Hives Verified 01/21/20 09:26 Review of Systems ROS Statement: Those systems with pertinent positive or pertinent negative responses have been documented in the HPI. ROS Other: All systems not noted in ROS Statement are negative. Past Medical History Past Medical History: Hypertension, Thyroid Disorder Additional Past Medical History / Comment(s): Hypothyroid History of Any Multi-Drug Resistant Organisms: None Reported Past Surgical History: Bariatric Surgery, Cholecystectomy, Joint Replacement, Orthopedic Surgery, Tonsillectomy Additional Past Surgical History / Comment(s): Gastric bypass, revision of gastric bypass unsuccessful, total R knee arthroplasty, colonoscopy. Past Anesthesia/Blood Transfusion Reactions: No Reported Reaction Past Psychological History: No Psychological Hx Reported Smoking Status: Never smoker Past Alcohol Use History: None Reported Past Drug Use History: None Reported - Past Family History Father Family Medical History: Coronary Artery Disease (CAD), CVA/TIA Additional Family Medical History / Comment(s): Father is . Mother Family Medical History: Coronary Artery Disease (CAD), CVA/TIA Additional Family Medical History / Comment(s): Mother is . General Exam - General Exam Comments Initial Comments: 60 -year-old female. Limitations: no limitations General appearance: alert, in no apparent distress Head exam: Present: atraumatic, normocephalic, normal inspection Eye exam: Present: normal appearance, PERRL, EOMI. Absent: scleral icterus, conjunctival injection, periorbital swelling ENT exam: Present: normal exam Neck exam: Present: normal inspection. Absent: tenderness, meningismus, lymphadenopathy Respiratory exam: Present: normal lung sounds bilaterally, other (Patient has tenderness over the left lower ribs.). Absent: respiratory distress, wheezes, rales, rhonchi, stridor Cardiovascular Exam: Present: regular rate, normal rhythm, normal heart sounds. Absent: systolic murmur, diastolic murmur, rubs, gallop, clicks GI/Abdominal exam: Present: soft, normal bowel sounds. Absent: distended, tenderness, guarding, rebound, rigid Extremities exam: Present: normal inspection Back exam: Present: normal inspection Neurological exam: Present: alert, oriented X3, CN II-XII intact Psychiatric exam: Present: normal affect, normal mood Skin exam: Present: warm, dry, intact, normal color. Absent: rash Course Vital Signs 01/21/20 01/21/20 08:25 10:18 Temperature 98.4 F 98 F Pulse Rate 77 59 L Respiratory 18 18 Rate Blood Pressure 145/73 145/73 O2 Sat by Pulse 99 99 Oximetry Medical Decision Making - Medical Decision Making Patient is reevaluated and resting comfortably in bed. Up-to-date on many repo rts. Patient advised to rest. We'll discharge the Patient with anti- inflammatory medication for her purse pain medicine for a contusion. Discussed concussion instructions as well. - Radiology Data Radiology results: report reviewed Rib and chest x-ray showed no displaced rib fractures are noted. CT of the brain shows no acute fracture dislocation of the C-spine. No acute intracranial hemorrhage mass effect or midline shift is seen. Disposition Clinical Impression: Contusion of rib on left side, Fall, Concussion Disposition: HOME SELF-CARE Condition: Good Instructions (If sedation given, give patient instructions): Concussion (ED), Rib Contusion (ED) Additional Instructions: Please use medication as discussed. Taking Tylenol and Motrin for pain. Patient recommended Please follow up with family doctor if symptoms have not improved over the next two days. Please return to the emergency room if your symptoms increase or worsen or for any other concerns. Prescriptions: Cyclobenzaprine [Flexeril] 10 mg PO TID #12 tab Ibuprofen [Motrin] 600 mg PO Q6HR PRN #20 tab PRN Reason: Pain Is patient prescribed a controlled substance at d/c from ED?: No Referrals: Jorge Mcfarlane MD [Primary Care Provider] - 1-2 days Time of Disposition: 09:58
--- NOTE | 2020-01-21 09:40 | CT ---
EXAMINATION TYPE: CT brain gosiaine wo con DATE OF EXAM: 01/21/2020 COMPARISON: CT 03/09/2019 HISTORY: Fall, hit back of head, trauma and pain CT DLP: 1477.7 mGycm Automated exposure control for dose reduction was used. TECHNIQUE: CT scan of the head and cervical spine are performed without contrast. FINDINGS: There is no acute intracranial hemorrhage, mass effect, or midline shift identified. The ventricles and sulci are within normal limits in size. The globes are intact and the visualized sin uses are clear. Cervical spine is visualized in its entirety from C1 through upper thoracic levels and demonstrates s table alignment without evidence of acute fracture or dislocation. Prevertebral soft tissue appears within normal limits. The C1-C2 articulation is unremarkable. IMPRESSION: 1. There is no acute fracture or dislocation evident in the cervical spine. 2. No acute intracranial hemorrhage, mass effect, or midline shift is seen.
--- NOTE | 2020-01-21 09:44 | XR ---
EXAMINATION TYPE: XR ribs LT w pa chest xray DATE OF EXAM: 01/21/2020 CLINICAL HISTORY: Pain, Fall Four views of the ribs fail demonstrate evidence for displaced rib fracture or secondary sign of rib fracture. Visualized lungs are clear. No evidence for pneumothorax. IMPRESSION: No displaced rib fractures seen. ICD 10 NO FRACTURE, INITIAL EVALUATION
[2020-01-21] MEDS ORDERED: ACET/COD 300 MG/30 MG STARTER PACK 6 TAB BTL PO STA (10:00)
[2020-01-21] MEDS ORDERED: CYCLOBENZAPRINE 10MG STARTER 3 TAB BTL PO STA (10:00)
[2020-01-21 10:22] VITALS: PULSE 59; TEMP 98
== END 2020-01-21 10:18 | disposition home or self-care (01) ==
LOC: EC 08:21
DX: S20.212A Contusion of left front wall of thorax, initial encounter (principal); S06.0X0A Concussion without loss of consciousness, initial encounter; I10 Essential (primary) hypertension; E03.9 Hypothyroidism, unspecified; Z79.890 Hormone replacement therapy; Z79.899 Other long term (current) drug therapy; Z91.040 Latex allergy status; Z91.018 Allergy to other foods; Z96.651 Presence of right artificial knee joint; W11.XXXA Fall on and from ladder, initial encounter; Y92.34 Swimming pool (public) as the place of occurrence of the external cause
CPT/HCPCS: 71101; 72125; 70450; 96372; 99284; J2360

== ENCOUNTER 2020-04-09 07:57 | Day surgery (SDC) | payer MEDICARE, OTHER ==
[2020-04-08 08:11] VITALS: BMI 44.2
--- NOTE | 2020-04-09 06:30 | P.GSHP ---
History of Present Illness H&P Date: 04/09/20 CHIEF COMPLAINT: GERD HISTORY OF PRESENT ILLNESS: The patient is a 60-year-old female who presents reports gastroesophageal reflux disease. Upper endoscopy was offered for further evaluation and management. PAST MEDICAL HISTORY: Please see list. PAST SURGICAL HISTORY: Please see list. MEDICATIONS: Please see list. ALLERGIES: Please see list. SOCIAL HISTORY: No illicit drug use FAMILY HISTORY: No reports of Crohn disease or ulcerative colitis. REVIEW OF ORGAN SYSTEMS: CONSTITUTIONAL: No reports of fevers or chills. GI: Denies any blood in stools or constipation. PHYSICAL EXAM: VITAL SIGNS: Stable GENERAL: Well-developed and pleasant in no acute distress. HEENT: No scleral icterus. Extraocular movements grossly intact. Moist buccal mucosa. NECK: Supple without lymphadenopathy. CHEST: Unlabored respirations. Equal bilateral excursions. CARDIOVASCULAR: Regular rate and rhythm. Distal 2+ pulses. ABDOMEN: Soft, nondistended. MUSCULOSKELETAL: No clubbing, cyanosis, or edema. ASSESSMENT: 1. Gastroesophageal reflux disease PLAN: 1. Recommend proceeding with an upper endoscopy Past Medical History Past Medical History: Hypertension, Thyroid Disorder Additional Past Medical History / Comment(s): Hypothyroid, HERNIA History of Any Multi-Drug Resistant Organisms: None Reported Past Surgical History: Bariatric Surgery, Cholecystectomy, Joint Replacement, Orthopedic Surgery, Tonsillectomy Additional Past Surgical History / Comment(s): Gastric bypass, revision of gastric bypass unsuccessful, total R knee arthroplasty, colonoscopy. Past Anesthesia/Blood Transfusion Reactions: No Reported Reaction Smoking Status: Never smoker - Past Family History Father Family Medical History: Coronary Artery Disease (CAD), CVA/TIA Additional Family Medical History / Comment(s): Father is . Mother Family Medical History: Coronary Artery Disease (CAD), CVA/TIA Additional Family Medical History / Comment(s): Mother is . Medications and Allergies Home Medications Medication Instructions Recorded Confirmed Type Levothyroxine Sodium [Synthroid] 150 mcg PO DAILY 09/09/17 04/08/20 History hydroCHLOROthiazide 25 mg PO DAILY 09/09/17 04/08/20 History Albuterol Inhaler [Ventolin Hfa 2 puff INHALATION RT-QID PRN 01/21/20 04/08/20 History Inhaler] Cyclobenzaprine [Flexeril] 10 mg PO TID #12 tab 01/21/20 04/08/20 Rx Ibuprofen [Motrin] 600 mg PO Q6HR PRN #20 tab 01/21/20 04/08/20 Rx Allergies Allergy/AdvReac Type Severity Reaction Status Date / Time banana Allergy Anaphylaxis Verified 04/08/20 08:07 latex Allergy Rash/Hives Verified 04/08/20 08:07
[~2020-04-09 07:57] MED LIST changes: -DOBUTamine DRIP for NUC MED 500 MG in DEXTROSE/WATER 1 250ML.BAG IV ONE; +LACTATED RINGERS 1,000 ML IV SCH; +MIDAZOLAM 2 MG/2 ML VIAL IV PRN; +fentaNYL (PF) 50 MCG/ML 2 ML AMP IV PRN; +fentaNYL (PF) 50 MCG/ML 2 ML AMP IVP PRN
[2020-04-09] MEDS ORDERED: LIDOCAINE 1% (10MG/ML) FOR IV START INTRADERMA ONE (08:15)
[2020-04-09 08:16] VITALS: RESP 16; TEMP 96.8
[2020-04-09] MEDS ORDERED: PROPOFOL 10 MG/ML 20 ML VIAL IV ONE (08:42)
[2020-04-09] MEDS ORDERED: LIDOCAINE 1% INJ 10MG/ML (20 ML MDV) ONE (08:42)
--- NOTE | 2020-04-09 09:05 | P.PCN ---
Date of Procedure: 04/09/20 Description of Procedure: PREOPERATIVE DIAGNOSIS: Dysphagia Gastroesophageal reflux disease Morbid obesity excess calories, BMI 47.0 POSTOPERATIVE DIAGNOSIS: Dysphagia Gastroesophageal reflux disease Morbid obesity excess calories, BMI 47.0 Presbyesophagus OPERATION: Esophagogastrojejunoscopy with rigid dilator over the guidewire 54 Fr. SURGEON: Maribel Gutiérrez MD ANESTHESIA: MAC. INDICATIONS: The patient is a 60-year-old female who presents with a history of dysphagia. Benefits and risks of the procedure were described. Informed consent was obtained. DESCRIPTION: The patient was brought into the endoscopy suite and laid in the left lateral decubitus position. After a timeout was confirmed, the procedure was initiated. An Olympus gastroscope was passed into a gastric pouch with features of a gastric bypass. Next using an Austrian rigid dilator, a guidewire was placed through the gastroscope. Next the scope was withdrawn. A 54-British rigid Austrian dilator was passed carefully along the posterior oropharynx to 40 cm and left in place for 2-3 minutes stretch. The dilator was withdrawn including the guidewire. The scope was reentered along the posterior oropharynx with no findings of full- thickness tear. No full-thickness injury was encountered. The GI tract was desufflated. The patient tolerated the procedure well. FINDINGS: Squamocolumnar junction unremarkable at 32 cm. Esophageal dysmotility with presbyesophagus, hypertensive esophagus Austrian rigid dilator 54-British completed. Marissa-en-Y gastric reconstruction Hypertensive upper esophageal sphincter RECOMMENDATIONS: Upper endoscopy as needed Plan - Discharge Summary Discharge Rx Participant: No New Discharge Prescriptions: Continue Levothyroxine Sodium [Synthroid] 150 mcg PO DAILY hydroCHLOROthiazide 25 mg PO DAILY Albuterol Inhaler [Ventolin Hfa Inhaler] 2 puff INHALATION RT-QID PRN PRN Reason: Shortness Of Breath Cyclobenzaprine [Flexeril] 10 mg PO TID #12 tab Ibuprofen [Motrin] 600 mg PO Q6HR PRN #20 tab PRN Reason: Pain Discharge Medication List Levothyroxine Sodium [Synthroid] 150 mcg PO DAILY 09/09/17 [History] hydroCHLOROthiazide 25 mg PO DAILY 09/09/17 [History] Albuterol Inhaler [Ventolin Hfa Inhaler] 2 puff INHALATION RT-QID PRN 01/21/20 [History] Cyclobenzaprine [Flexeril] 10 mg PO TID #12 tab 01/21/20 [Rx] Ibuprofen [Motrin] 600 mg PO Q6HR PRN #20 tab 01/21/20 [Rx] Follow up Appointment(s)/Referral(s): Maribel Gutiérrez MD [STAFF PHYSICIAN] - 04/22/20 Patient Instructions/Handouts: Esophageal Dilation (DC) Activity/Diet/Wound Care/Special Instructions: Diet as tolerated. Discharge Disposition: HOME SELF-CARE
[2020-04-09 09:21] VITALS: BP 133/84; PULSE 73
== END 2020-04-09 10:10 | disposition home or self-care (01) ==
LOC: ORWHC2ENDO 07:57
PROVIDERS: ATTEND Surgery Plastic and Reconstructive Surgery
DX: K22.8 Other specified diseases of esophagus (principal); K22.4 Dyskinesia of esophagus; K21.9 Gastro-esophageal reflux disease without esophagitis; E66.01 Morbid (severe) obesity due to excess calories; Z68.42 Body mass index [BMI] 45.0-49.9, adult; R13.10 Dysphagia, unspecified; I10 Essential (primary) hypertension; E03.9 Hypothyroidism, unspecified; K46.9 Unspecified abdominal hernia without obstruction or gangrene; Z98.84 Bariatric surgery status; Z90.49 Acquired absence of other specified parts of digestive tract; Z96.651 Presence of right artificial knee joint; Z83.2 Family history of diseases of the blood and blood-forming organs and certain disorders involving the immune mechanism; Z79.890 Hormone replacement therapy; Z79.899 Other long term (current) drug therapy; Z91.040 Latex allergy status; Z91.018 Allergy to other foods
CPT/HCPCS: 43248; J2001; J2704; 43249

== ENCOUNTER → 2020-04-11 | Outpatient (CLI) | payer MEDICARE, OTHER ==
[2020-04-11 12:09] LABS: Anisocytosis Slight; HCT 33.5 % (34.0-46.0); HGB 10.7 gm/dL (11.4-16.0); Hypochromasia Moderate; MCH 26.3 pg (25.0-35.0); MCHC 32.1 g/dL (31.0-37.0); MCV 82.1 fL (80.0-100.0); Mean Platelet Volume 6.2; Platelet Count 293 k/uL (150-450); RBC 4.08 m/uL (3.80-5.40); RDW 16.8 % (11.5-15.5)
[2020-04-11 20:17] LABS: % Iron Saturation 6.15 (12.00-45.00); African American GFR (CKD) 113.2 (60.0-200.0); Albumin 4.1 g/dL (3.80-4.90); Albumin/Globulin Ratio 2.16 (1.60-3.17); Anion Gap 7.2 mmol/L (4.00-12.00); Carbon Dioxide 27.8 mmol/L (21.6-31.8); Chol/HDL Ratio 2.46; Ferritin 4.6 ng/mL (10.0-291.0); Folate, Serum 11.4 ng/mL; Globulin 1.9 g/dL (1.6-3.3); LDL Cholesterol,Calculated 106.2 mg/dL (0.0-131.0); Magnesium 1.8 mg/dL (1.5-2.4); Non-African American GFR(CKD) 97.7 (60.0-200.0); Phosphorus 2.8 mg/dL (2.4-5.1); Potassium 4.2 mmol/L (3.5-5.5); Total Bilirubin 0.4 mg/dL (0.3-1.2); VLDL Calculation 16.8 mg/dL (5.00-40.00)
[2020-04-11 20:20] LABS: Hemoglobin A1C 5.8 % (4.0-6.0)
[2020-04-11 21:26] LABS: INR 1.05 (0.90-1.11); Partial Thromboplastin Time 28.7 sec (24.7-29.9); Prothrombin Time 11.2 sec (9.9-11.9)
== END | disposition home or self-care (01) ==
LOC: LABWHC1 10:38
PROVIDERS: ATTEND Surgery Plastic and Reconstructive Surgery
DX: E21.1 Secondary hyperparathyroidism, not elsewhere classified (principal); E89.1 Postprocedural hypoinsulinemia; D50.8 Other iron deficiency anemias; K90.89 Other intestinal malabsorption; E44.0 Moderate protein-calorie malnutrition; E55.9 Vitamin D deficiency, unspecified; K74.1 Hepatic sclerosis; N19 Unspecified kidney failure; K50.90 Crohn's disease, unspecified, without complications; E66.01 Morbid (severe) obesity due to excess calories
CPT/HCPCS: 36415; 80053; 80061; 82306; 82525; 82607; 82728; 82746; 83036; 83540; 83550; 83735; 83970; 84100; 84134; 84255; 84425; 84443; 84590; 84630; 85027; 85610; 85730

== ENCOUNTER → 2020-05-01 | Outpatient (CLI) | payer MEDICARE, OTHER ==
--- NOTE | 2020-05-01 12:14 | CT ---
EXAMINATION TYPE: CT abdomen pelvis w con DATE OF EXAM: 05/01/2020 COMPARISON: NONE HISTORY: 60-year-old female Left upper quadrant pain, diverticulitis TECHNIQUE: Contiguous axial scanning of the abdomen and pelvis following administration of 100 ml Iso keenan 300 IV contrast. Delayed images through the kidneys and coronal/sagittal reconstructions perform ed. CT DLP: 2385.8 mGycm Automated exposure control for dose reduction was used. FINDINGS: Heart normal size without pericardial effusion. Lung bases clear without pleural effusion. There is a tiny hiatal hernia and postsurgical changes of Pramod-en-Y gastric bypass. Some of the surgi delmi material relating to the gastrojejunostomy is located at the level of the hiatal hernia. A couple calcified granulomas within the liver. No focal liver lesion. Mildly diminished attenuation of the hepatic parenchyma suggesting mild fatty infiltration. Portal venous system is patent. No bili connie ductal dilatation. Gallbladder surgically absent. Adrenal glands, spleen, and pancreas appear within normal limits. Multiple cortical defects within the right kidney prior vascular infectious insults. Tiny cortical 7 mm hypodensity lower pole left kidney too small for accurate CT characterization, likely tiny cyst. Circumaortic left renal vein. Prior anterior abdominal wall mesh repair. No recurrent hernia is seen. No dilated small bowel, free fluid, free air. No mesenteric or retroperitoneal lymphadenopathy. Normal appendix. Mild to moderate stool burden. Mid sigmoid diverticulosis. No pericolonic inflammato ry change. Bladder urine distended. Uterus anteverted. Small bilateral ovaries. No abnormal fluid collection in the pelvis or pelvic lymphadenopathy seen. Bones: Hypertrophic facet arthropathy lower lumbar spine. Trace grade 1 anterolisthesis at L4-L5. Mod erate degenerative disc disease visualized lower thoracic spine. IMPRESSION: 1. STATUS POST PRAMOD-EN-Y GASTRIC BYPASS WITH A TINY HIATAL HERNIA. 2. 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 3. MIDSIGMOID DIVERTICULOSIS WITHOUT ACUTE DIVERTICULITIS. 4. PRIOR VENTRAL ABDOMINAL WALL MESH REPAIR. NO RECURRENT HERNIA SEEN.
--- NOTE | 2020-05-01 13:29 | FL ---
EXAMINATION: Single contrast Esophagram DATE OF EXAM: 05/01/2020 CLINICAL INDICATION: 60-year-old female coughing and gagging especially at night, history of remote g astric bypass, dysphagia. COMPARISON: Correlation CT 05/01/2020 Total Fluoroscopy Time: 1 minute 52 seconds Total images: 52 FINDINGS: The swallowing mechanism is normal and hypopharyngeal anatomy is preserved. The cervical and thoracic portions have a normal course and caliber. Moderate tertiary peristaltic co ntractions are demonstrated throughout the thoracic esophagus with a intermittent delay in clearance of contrast from the esophagus. The mucosa is normal and no persistent filling defect is encountered. No fixed narrowing. There is a tiny hiatal hernia and postsurgical change of Marissa-en-Y gastric bypass demonstrated. The g astrojejunostomy remains patent IMPRESSION: 1. Moderate tertiary peristalsis and intermittent delayed clearance from the esophagus. Findings sugg est presbyesophagus. 2. Tiny hiatal hernia and postsurgical change of Marissa-en-Y gastric bypass.
== END | disposition home or self-care (01) ==
LOC: RADCTMAIN 08:31
PROVIDERS: ATTEND Surgery Plastic and Reconstructive Surgery
DX: K22.8 Other specified diseases of esophagus (principal); K44.9 Diaphragmatic hernia without obstruction or gangrene; K57.30 Diverticulosis of large intestine without perforation or abscess without bleeding; Z98.84 Bariatric surgery status
CPT/HCPCS: 74220; 74177; Q9967

== ENCOUNTER → 2020-05-21 | Outpatient (CLI) | payer MEDICARE, OTHER ==
[2020-05-21 15:34] VITALS: BP 156/72; PULSE 84; TEMP 98.3; BMI 48.6
--- NOTE | 2020-05-21 15:55 | P.HPBAR ---
Bariatric H&P - History & Physicial H&P Date: 05/21/20 History & Physicial: Visit/CC: hernia repair Patient initial contact: Initial weight: Initial weight in pounds: Height: 4 ft 10 in Initial BMI: Last weight: Current weight: 105.687 kg Current weight in pounds: 233.00 Current BMI: 48.6 [place] body weight (based on NIH guidelines): 40.823 kg Excess body weight loss: The patient is a 60 year-old F who presents for Bariatric Assessment. DATE OF SERVICE: 05/21/2020 REASON FOR CONSULTATION: Initial bariatric evaluation. HISTORY OF PRESENT ILLNESS: Suzette Conde is a 60-year-old female who comes with lifelong morbid obesity. She comes in with gastric bypass. She presents with abdominal pain. She also comes in with troubles swallowing. Her highest weight was 287 pounds. She presents for surgical intervention. At height of 4 feet 10 inches, her ideal body weight is 118 pounds. Her highest weight was 287 pounds, BMI 62.8. Her lowest weight was 130 pounds. She comes in 233 pounds. Her body mass index is 48.7. She is 115 pounds overweight. PAST MEDICAL HISTORY: 1. Morbid obesity due to excess calories 2. Body mass index of 48.7 3. Hypertensive heart disease 4. Hypothyroidism 5. Asthma PAST SURGICAL HISTORY: 1. Gastric bypass 2. Cholecystectomy 3. Tonsillectomy 4. Total right knee replacement 5. Colonoscopy HOME MEDICATIONS: Home Medications Medication Instructions Recorded Confirmed Levothyroxine Sodium [Synthroid] 150 mcg PO DAILY 09/09/17 05/29/20 hydroCHLOROthiazide 25 mg PO DAILY 09/09/17 05/29/20 Albuterol Inhaler [Ventolin Hfa 2 puff INHALATION RT-QID PRN 01/21/20 05/29/20 Inhaler] Previous Rx's Medication Instructions Recorded Cyclobenzaprine [Flexeril] 10 mg PO TID #12 tab 01/21/20 Cyanocobalamin (Vitamin B-12) 5,000 mcg PO DAILY #30 tab.rapdis 05/21/20 [Vitamin B12] Ergocalciferol [Vitamin D2 50,000 unit PO Q7D #12 cap 05/21/20 (DRISDOL)] Levothyroxine Sodium 200 mcg PO DAILY #301 tablet 05/21/20 ALLERGIES: Allergies Allergy/AdvReac Type Severity Reaction Status Date / Time banana Allergy Anaphylaxis Verified 05/29/20 10:08 latex Allergy Rash/Hives Verified 05/29/20 10:08 SOCIAL HISTORY: No past tobacco use. FAMILY HISTORY: No family history of ulcerative colitis disease or Crohn's disease. Family history of morbid obesity. No lupus in the family. No reports of stomach or esophageal cancer. REVIEW OF ORGAN SYSTEMS: CONSTITUTIONAL: At height of 4 feet 10 inches, her ideal body weight is 118 pounds. Her highest weight was 287 pounds, BMI 62.8. She comes in 233 pounds. Her body mass index is 48.7. She is 115 pounds overweight. HEENT: Denies any active troubles with vision or hearing. Has troubles with swallowing. ENDOCRINE: No diabetes. Has hypothyroidism. CARDIOVASCULAR: No Past reports of palpitations or heart attacks or chest pain. Has hypertension. RESPIRATORY: Denies daytime somnolence. Has asthma. GASTROINTESTINAL: Denies any bright red blood per rectum. No diarrhea. No constipation. MUSCULOSKELETAL: Has lower back pain and joint pain. Has osteoarthritis of the knees. NEURO: No headaches. No seizure disorders. PSYCH: Denies depression. No suicidal ideation. RHEUMATOLOGIC: No lupus. No rheumatoid arthritis. HEMATOLOGIC: Denies any abnormal bleeding or bruising. No personal history of DVTs. SKIN: No rash. No skin cancer. PHYSICAL EXAM: VITAL SIGNS: Height 4 foot 10 inches, weight 233 pounds. BMI 48.7 Vital Signs Temp 98.3 F 05/21/20 15:29 Pulse 84 05/21/20 15:29 Resp BP 156/72 05/21/20 15:29 Pulse Ox GENERAL: Well-developed in no acute distress. HEENT: No scleral icterus. Extraocular movements grossly intact. Hears conversational speech. No nasal drainage. NECK: Supple without lymphadenopathy. CHEST: Nonlabored respirations with equal bilateral excursions. CARDIOVASCULAR: Regular rate and regular rhythm. Distal 2+ pulses. ABDOMEN: Obese, soft, nontender, nondistended. MUSCULOSKELETAL: No clubbing, cyanosis. NEURO: No focal or lateralizing signs. Cranial nerves 2 through 12 grossly within normal limits. PSYCH: Appropriate affect. Alert and oriented to person, place and time. SKIN: Good skin turgor. Well perfused. LABS: Reviewed. Hgb low. Iron is low. Vitamin B-12 is low. Vitamin D is low. PTH is elevated. Cholesterol is elevated. TSH elevated STUDIES: CT of the abdomen and pelvis reviewed with diverticulosis and findings of ventral hernia. Barium swallow independently reviewed demonstrates hiatal hernia, esophageal dysmotility EGD FINDINGS: Squamocolumnar junction unremarkable at 32 cm. Esophageal dysmotility with presbyesophagus, hypertensive esophagus [place] rigid dilator 54-Divehi completed. Marissa-en-Y gastric reconstruction Hypertensive upper esophageal sphincter ASSESSMENT: 1. Morbid obesity due to excess calories 2. Body mass index of 48.7 3. Hypertensive heart disease 4. Hypothyroidism 5. Asthma 6. Iron deficiency anemia, new 7. Vitamin B-12 deficiency, new 8. Vitamin D deficiency, new 9. Secondary hyperparathyroidism 10. Diverticulosis 11. Hiatal hernia PLAN: 1. Dietary surveillance and counseling was reviewed. Increased protein intake over 65 grams daily advised. 2. Recommend upper endoscopy as needed 3. Recommend Vitamin B-12 injection, prescribed 4. Vitamin D 57366 units daily 5. Recommend increase synthroid for hypothyroidism. Thank you for this consultation. Past Medical History Past Medical History: Hypertension, Thyroid Disorder Additional Past Medical History / Comment(s): Hypothyroid History of Any Multi-Drug Resistant Organisms: None Reported Past Surgical History: Bariatric Surgery, Cholecystectomy, Joint Replacement, Orthopedic Surgery, Tonsillectomy Additional Past Surgical History / Comment(s): Gastric bypass, revision of gastric bypass unsuccessful, total R knee arthroplasty, colonoscopy. Past Anesthesia/Blood Transfusion Reactions: No Reported Reaction Past Psychological History: No Psychological Hx Reported Additional Psychological History / Comment(s): Pt resides with her spouse. She is independent. Smoking Status: Never smoker Past Alcohol Use History: None Reported Past Drug Use History: None Reported - Past Family History Father Family Medical History: Coronary Artery Disease (CAD), CVA/TIA Additional Family Medical History / Comment(s): Father is . Mother Family Medical History: Coronary Artery Disease (CAD), CVA/TIA Additional Family Medical History / Comment(s): Mother is . Surgical - Exam Vital Signs Temp Pulse BP 98.3 F 84 156/72 05/21/20 15:29 05/21/20 15:29 05/21/20 15:29 Bariatric Checklist Checklist: Plan: Checklist: EGD: 1. Hiatal hernia: 2. H. Pylori: HgbA1c: Vitamin D: Smoking: Never smoker Primary care physician referral: Dr Mcfarlane Psychiatry clearance: Cardiology clearance: Sleep study: Diet journal: VTE risk score: VTE risk level: Rehab needs at discharge:
== END | disposition home or self-care (01) ==
LOC: BARWHC3 14:20
PROVIDERS: ATTEND Surgery Plastic and Reconstructive Surgery
DX: E66.01 Morbid (severe) obesity due to excess calories (principal); I11.9 Hypertensive heart disease without heart failure; E03.9 Hypothyroidism, unspecified; J45.909 Unspecified asthma, uncomplicated; D50.9 Iron deficiency anemia, unspecified; E53.8 Deficiency of other specified B group vitamins; E55.9 Vitamin D deficiency, unspecified; E21.1 Secondary hyperparathyroidism, not elsewhere classified; K57.30 Diverticulosis of large intestine without perforation or abscess without bleeding; K44.9 Diaphragmatic hernia without obstruction or gangrene; K57.90 Diverticulosis of intestine, part unspecified, without perforation or abscess without bleeding; Z98.84 Bariatric surgery status; Z68.42 Body mass index [BMI] 45.0-49.9, adult; Z91.040 Latex allergy status; Z91.018 Allergy to other foods; Z79.899 Other long term (current) drug therapy; Z79.890 Hormone replacement therapy
CPT/HCPCS: 99211

== ENCOUNTER → 2020-12-05 | Outpatient (CLI) | payer MEDICARE, OTHER ==
--- NOTE | 2020-12-05 15:00 | XR ---
KUB HISTORY: Urinary tract infection Frontal KUB is submitted on 2 images and correlated to prior CT dated 05/01/2020 Surgical coils are present over the anterior abdomen. There are multiple phleboliths within the pelvi s. No evident bowel obstruction or pneumoperitoneum. No pathologic calcification. IMPRESSION: Postop changes.
== END | disposition home or self-care (01) ==
LOC: RADXRMAIN 10:15
PROVIDERS: ATTEND Family Medicine
DX: N39.0 Urinary tract infection, site not specified (principal)
CPT/HCPCS: 74018

== ENCOUNTER 2021-07-16 13:56 | Observation (INO) | payer MEDICARE, OTHER ==
[2021-07-16 15:22] LABS: Basophils % (A) 1 %; Eosinophils # (A) 0.1 k/uL (0-0.7); Eosinophils % (A) 3 %; HCT 38.4 % (34.0-46.0); HGB 12.4 gm/dL (11.4-16.0); Lymphocytes # (A) 1.6 k/uL (1.0-4.8); Lymphocytes % (A) 37 %; MCH 28.5 pg (25.0-35.0); MCHC 32.2 g/dL (31.0-37.0); MCV 88.8 fL (80.0-100.0); Mean Platelet Volume 6.6; Monocytes # (A) 0.2 k/uL (0-1.0); Monocytes % (A) 4 %; Neutrophils # (A) 2.4 k/uL (1.3-7.7); Neutrophils % (A) 54 %; Platelet Count 265 k/uL (150-450); RBC 4.33 m/uL (3.80-5.40); RDW 15.4 % (11.5-15.5); WBC 4.4 k/uL (3.8-10.6)
[2021-07-16 15:36] LABS: Albumin 4.4 g/dL (3.5-5.0); Calcium 9.4 mg/dL (8.4-10.2); Potassium 3.9 mmol/L (3.5-5.1); Total Bilirubin 0.5 mg/dL (0.2-1.3); Total Protein 7.5 g/dL (6.3-8.2)
[2021-07-16 15:46] LABS: Prothrombin Time 10.6 sec (9.0-12.0)
[2021-07-16 15:53] LABS: Partial Thromboplastin Time 21.3 sec (22.0-30.0)
[2021-07-16] MEDS ORDERED: ASPIRIN 81 MG PO STA (15:57)
[2021-07-16] MEDS ORDERED: KETOROLAC 15 MG/ML 1 ML VIAL IVP STA (16:16)
[2021-07-16] MEDS ORDERED: MORPHINE SULFATE 4 MG/ML SYRINGE IVP STA (16:16)
--- NOTE | 2021-07-16 16:29 | ED ---
General Adult HPI - General Chief complaint: Chest Pain Stated complaint: Chest Pain Time Seen by Provider: 07/16/21 15:37 Source: patient, RN notes reviewed, old records reviewed Mode of arrival: wheelchair Limitations: physical limitation - History of Present Illness Initial comments: Patient is a 61-year-old female with past medical history remarkable for hypertension, thyroid disorder, hyperlipidemia who presents emergency Department complaining of acute onset of chest pain earlier today. She states that she was at work doing dishes when she began experiencing midline substernal chest pain that was sharp in nature that did not radiate. Which certainly did improve somewhat when she stood up again to continue dishes, continued. This is at a pproximately noon. She presents emergency department for further evaluation. Denies any fevers, chills, cough. States the chest pain is not palpable, and does not notice any worsening pain with movement. Denies any abdominal pain, nausea, vomiting. Denies any history of blood clots. His complaint with medications. States that early when she was having the pain, she did feel like she was about to pass out, and felt extremely lightheaded. She presents emergency department over concern for this chest pain that she expenses earlier. States that the pain is currently under control. Workup was initially started by triage nursing due to the capacity of the emergency department. I evaluated the patient when she was placed in a room. Workup was nearly completed at that time. - Related Data Home Medications Medication Instructions Recorded Confirmed Levothyroxine Sodium [Synthroid] 150 mcg PO DAILY 09/09/17 07/16/21 hydroCHLOROthiazide 25 mg PO DAILY 09/09/17 07/16/21 Cyclobenzaprine [Flexeril] 10 mg PO TID PRN 07/16/21 07/16/21 Naproxen 500 mg PO BID PRN 07/16/21 07/16/21 Allergies Allergy/AdvReac Type Severity Reaction Status Date / Time banana Allergy Anaphylaxis Verified 07/16/21 16:51 latex Allergy Rash/Hives Verified 07/16/21 16:51 Review of Systems ROS Statement: Those systems with pertinent positive or pertinent negative responses have been documented in the HPI. Review of Systems: CONST: Denies fever EYES: Denies blurry vision ENT: Denies nasal congestion C/V: Endorses chest pain RESP: Denies shortness of breath GI: Denies abdominal pain : Denies dysuria SKIN: Denies rash. MSK: Denies joint pain. NEURO: Denies headache ROS Other: All systems not noted in ROS Statement are negative. Past Medical History Past Medical History: Hyperlipidemia, Hypertension, Thyroid Disorder Additional Past Medical History / Comment(s): Hypothyroid History of Any Multi-Drug Resistant Organisms: None Reported Past Surgical History: Bariatric Surgery, Cholecystectomy, Hernia Repair, Joint Replacement, Orthopedic Surgery, Tonsillectomy Additional Past Surgical History / Comment(s): Gastric bypass, revision of gastric bypass unsuccessful, total R knee arthroplasty, colonoscopy. Past Anesthesia/Blood Transfusion Reactions: No Reported Reaction Past Psychological History: No Psychological Hx Reported Smoking Status: Never smoker Past Alcohol Use History: None Reported Past Drug Use History: None Reported - Past Family History Father Family Medical History: Coronary Artery Disease (CAD), CVA/TIA Additional Family Medical History / Comment(s): Father is . Mother Family Medical History: Coronary Artery Disease (CAD), CVA/TIA Additional Family Medical History / Comment(s): Mother is . General Exam - General Exam Comments Initial Comments: General: Appears in no acute distress. HEAD: Normal with no signs of head trauma. EYES: PERRLA, EOMI, conjunctiva normal, no discharge. ENT: Hearing grossly intact, normal oropharynx. RESPIRATORY: Clear breath sounds bilaterally. No wheezes, rales, or rhonchi. C/V: Regular rate and rhythm. S1 and S2 auscultated, no edema, peripheral pulses 2+ and intact throughout. Chest pain is reproduced on palpation. It is somewhat reproducible when she stretches back, however states that it feels like the pain is "on the inside." ABD: Abd is soft, nontender, nondistended EXT: Normal range of motion, no obvious deformity SKIN: No rashes or lesions observed on exposed skin. NEURO: Alert and oriented 4. Limitations: physical limitation Course Vital Signs 07/16/21 07/16/21 14:12 16:22 Temperature 98.2 F Pulse Rate 96 77 Respiratory 18 18 Rate Blood Pressure 146/73 168/79 O2 Sat by Pulse 100 97 Oximetry Medical Decision Making - Medical Decision Making Based on the patient's presentation and physical exam, I'm concerned for cardiovascular cause for her current symptoms. Cardiac workup will be obtained and was already ordered by triage nursing. This included EKG and blood work. I have added a chest x-ray. She will be placed on continuous cardiac monitoring. Patient will be administered aspirin as well as Toradol and morphine. She was in agreement this plan. Patient's EKG showed 1 new isolated t wave inversion in V3. Remainder the findings are chronic. Laboratory studies are remarkable for a negative troponin. Remainder of her labs are unremarkable. Chest x-ray shows no acute cardiopulmonary process. I spoke with the patient regarding her symptoms. Heart score is moderate at 4. I discussed admission the hospital with the patient to observation for cardiac evaluation and echo. She was in agreement this plan. I spoke with the patient's physician, Dr. Mcfarlane who was in agreement with this plan. Accepted the patient. Heparin will be held at this time as the patient is relatively asymptomatic, with no EKG changes to suggest acute signs of ischemia and no troponinemia. We'll continue to trend troponins. Patient was in agreement this plan. - Lab Data Result diagrams: 07/16/21 14:59 07/16/21 14:59 Lab Results 07/16/21 07/16/21 07/16/21 Range/Units 14:59 14:59 14:59 WBC 4.4 (3.8-10.6) k/uL RBC 4.33 (3.80-5.40) m/uL Hgb 12.4 (11.4-16.0) gm/dL Hct 38.4 (34.0-46.0) % MCV 88.8 (80.0-100.0) fL MCH 28.5 (25.0-35.0) pg MCHC 32.2 (31.0-37.0) g/dL RDW 15.4 (11.5-15.5) % Plt Count 265 (150-450) k/uL MPV 6.6 Neutrophils % 54 % Lymphocytes % 37 % Monocytes % 4 % Eosinophils % 3 % Basophils % 1 % Neutrophils # 2.4 (1.3-7.7) k/uL Lymphocytes # 1.6 (1.0-4.8) k/uL Monocytes # 0.2 (0-1.0) k/uL Eosinophils # 0.1 (0-0.7) k/uL Basophils # 0.0 (0-0.2) k/uL PT 10.6 (9.0-12.0) sec INR 1.0 (<1.2) APTT 21.3 L (22.0-30.0) sec Sodium 139 (137-145) mmol/L Potassium 3.9 (3.5-5.1) mmol/L Chloride 103 (98-107) mmol/L Carbon Dioxide 27 (22-30) mmol/L Anion Gap 9 mmol/L BUN 18 H (7-17) mg/dL Creatinine 0.88 (0.52-1.04) mg/dL Est GFR (CKD-EPI)AfAm 81 (>60 ml/min/1.73 sqM) Est GFR (CKD-EPI)NonAf 71 (>60 ml/min/1.73 sqM) Glucose 106 H (74-99) mg/dL Calcium 9.4 (8.4-10.2) mg/dL Total Bilirubin 0.5 (0.2-1.3) mg/dL AST 33 (14-36) U/L ALT 23 (4-34) U/L Alkaline Phosphatase 109 (38-126) U/L Troponin I (0.000-0.034) ng/mL Total Protein 7.5 (6.3-8.2) g/dL Albumin 4.4 (3.5-5.0) g/dL Coronavirus (PCR) (Not Detectd) 07/16/21 07/16/21 Range/Units 14:59 16:56 WBC (3.8-10.6) k/uL RBC (3.80-5.40) m/uL Hgb (11.4-16.0) gm/dL Hct (34.0-46.0) % MCV (80.0-100.0) fL MCH (25.0-35.0) pg MCHC (31.0-37.0) g/dL RDW (11.5-15.5) % Plt Count (150-450) k/uL MPV Neutrophils % % Lymphocytes % % Monocytes % % Eosinophils % % Basophils % % Neutrophils # (1.3-7.7) k/uL Lymphocytes # (1.0-4.8) k/uL Monocytes # (0-1.0) k/uL Eosinophils # (0-0.7) k/uL Basophils # (0-0.2) k/uL PT (9.0-12.0) sec INR (<1.2) APTT (22.0-30.0) sec Sodium (137-145) mmol/L Potassium (3.5-5.1) mmol/L Chloride (98-107) mmol/L Carbon Dioxide (22-30) mmol/L Anion Gap mmol/L BUN (7-17) mg/dL Creatinine (0.52-1.04) mg/dL Est GFR (CKD-EPI)AfAm (>60 ml/min/1.73 sqM) Est GFR (CKD-EPI)NonAf (>60 ml/min/1.73 sqM) Glucose (74-99) mg/dL Calcium (8.4-10.2) mg/dL Total Bilirubin (0.2-1.3) mg/dL AST (14-36) U/L ALT (4-34) U/L Alkaline Phosphatase (38-126) U/L Troponin I <0.012 (0.000-0.034) ng/mL Total Protein (6.3-8.2) g/dL Albumin (3.5-5.0) g/dL Coronavirus (PCR) Not Detected (Not Detectd) - EKG Data -: EKG Interpreted by Me EKG Comments: 12-lead Electrocardiogram Interpretation Note EKG was reviewed and interpreted by myself. 12-lead ECG performed at 1419 is interpreted by me as revealing normal sinus rhythm at a rate of 94 beats per minute. [place] is normal. [place] interval is 170 ms, QRS duration is 96 ms, QTc is 477 ms.. Patient does have a T-wave inversion in lead V3 which was not seen on prior EKGs. There is a T-wave inversion in lead III which is seen on prior EKGs.. R wave progression across the precordium was satisfactory. By my interpretation this EKG is non-diagnostic for acute ischemia. There is 119 T wave inversion in lead V3 that is not seen on prior EKGs. Remainder the findings are chronic. Disposition Clinical Impression: Chest pain of unknown etiology Disposition: ADMITTED IP TO THIS HOSP Condition: Stable
--- NOTE | 2021-07-16 16:32 | XR ---
EXAMINATION TYPE: XR chest 2V DATE OF EXAM: 07/16/2021 COMPARISON: 02/17/2019 HISTORY: 61 years Female. STUDY INDICATION GIVEN: chest pain . TECHNIQUE: Frontal and lateral chest radiographs. IMPRESSION: Linear and somewhat hazy opacities are seen in the lung bases are not significantly changed in appear ance compared to the prior. This may be reflective of atelectasis and/or scarring. No pneumothorax or large effusion. Normal cardiomediastinal silhouette. No acute osseous abnormality. Remote fracture deformity of the mid right clavicle is noted. Mild dege nerative changes are seen in the spine.
[2021-07-16] MEDS ORDERED: NALOXONE 0.4 MG/ML 1 ML VIAL IV PRN (17:19)
[2021-07-16] MEDS ORDERED: IBUPROFEN 400 MG TAB PO PRN (17:19)
[2021-07-16] MEDS ORDERED: MORPHINE SULFATE 4 MG/ML SYRINGE IV PRN (17:19)
[2021-07-16] MEDS ORDERED: CYCLOBENZAPRINE 10 MG TAB PO PRN (17:20)
[2021-07-17] MEDS: HEPARIN SODIUM,PORCINE/PF 5,000 UNIT/0.5 ML SYRINGE SQ SCH ×2 (00:07→07:39)
[2021-07-17 06:04] VITALS: RESP 22
[2021-07-17] MEDS ORDERED: LEVOTHYROXINE 75 MCG TAB PO SCH (06:30)
[2021-07-17 07:05] VITALS: TEMP 98.7
[2021-07-17 07:16] VITALS: BP 168/96; PULSE 74
[2021-07-17] MEDS ORDERED: hydroCHLOROthiazide 25 MG TAB PO SCH (09:00)
--- NOTE | 2021-07-17 09:37 | ECHOF ---
Referral Reason:chest pain MEASUREMENTS -------- HEIGHT: 149.9 cm WEIGHT: 97.5 kg BP: RVIDd: 3.4 cm (< 3.3) IVSd: 1.3 cm (0.6 - 1.1) LVIDd: 3.3 cm (3.9 - 5.3) LVPWd: 1.6 cm (0.6 - 1.1) IVSs: 1.4 cm LVIDs: 2.7 cm LVPWs: 2.0 cm LAESV Index (A-L): 34.86 ml/m Ao Diam: 3.5 cm (2.0 - 3.7) AV Cusp: 1.6 cm (1.5 - 2.6) LA Diam: 2.9 cm (2.7 - 3.8) MV EXCURSION: 15.965 mm (> 18.000) MV EF SLOPE: 113 mm/s (70 - 150) EPSS: 0.6 cm MV E Jani: 0.68 m/s MV DecT: 225 ms MV A Jani: 1.03 m/s MV E/A Ratio: 0.66 RAP: 5.00 mmHg RVSP: 48.26 mmHg FINDINGS -------- Sinus rhythm. This was a technically adequate study. The left ventricular size is normal. There is mild concentric left ventricular hypertrophy. Overa ll left ventricular systolic function is normal with, an EF between 55 - 60 %. The diastolic fillin g pattern is normal for the age of the patient 12.30. The right ventricle is mildly enlarged. LA is midly dilated 29-33ml/m2. The right atrial size is normal. Interatrial and interventricular septum intact. There is no evidence of aortic regurgitation. There is no evidence of aortic stenosis. Mild mitral annular calcification present. Mild mitral regurgitation is present. [id number] tricuspid regurgitation present. There is mild to moderate pulmonary hypertension. The right ventricular systolic pressure, as measured by Doppler, is 48.26mmHg. There is no pulmonic regurgitation present. The aortic root size is normal. IVC Not well visulized. Echo free space indicative of a pericardial fat pad. There is no pericardial effusion. CONCLUSIONS -------- 1. The left ventricular size is normal. 2. There is mild concentric left ventricular hypertrophy. 3. Overall left ventricular systolic function is normal with, an EF between 55 - 60 %. 4. The diastolic filling pattern is normal for the age of the patient 12.30 5. The right ventricle is mildly enlarged. 6. LA is midly dilated 29-33ml/m2. 7. Mild mitral annular calcification present. 8. Mild mitral regurgitation is present. 9. [id number] tricuspid regurgitation present. 10. There is mild to moderate pulmonary hypertension. 11. The right ventricular systolic pressure, as measured by Doppler, is 48.26mmHg. PLUSH BRUSHER: Romy Villela RDCS
--- NOTE | 2021-07-17 09:41 | P.HPIM ---
History of Present Illness H&P Date: 07/17/21 Chief Complaint: chest pressure This history and physical 58-year-old white female with history of hypertension who states significant sternal chest pressure yesterday. The patient states the pain lasted several hours and was relieved spontaneously but waxed and waned. Diaphoresis was otherwise noted. Family history of heart disease and diabetes and she is one of 10 children and there is only one sister remaining who is relatively unhealthy. She is a nonsmoker. She denies any significant ethanol or substance abuse. She states significant stress due to family issues. Review of Systems Constitutional: Denies chills, Denies fever Eyes: denies blurred vision, denies pain Ears, nose, mouth and throat: Denies headache, Denies sore throat Cardiovascular: Reports chest pain, Denies leg edema, Denies lightheadedness, Denies shortness of breath Respiratory: Denies cough Gastrointestinal: Denies abdominal pain, Denies diarrhea, Denies nausea, Denies vomiting Genitourinary: Denies dysuria, Denies hematuria Musculoskeletal: Denies myalgias Past Medical History Past Medical History: Hyperlipidemia, Hypertension, Thyroid Disorder Additional Past Medical History / Comment(s): Hypothyroid History of Any Multi-Drug Resistant Organisms: None Reported Past Surgical History: Bariatric Surgery, Cholecystectomy, Hernia Repair, Joint Replacement, Orthopedic Surgery, Tonsillectomy Additional Past Surgical History / Comment(s): Gastric bypass, revision of gastric bypass unsuccessful, total R knee arthroplasty, colonoscopy. Past Anesthesia/Blood Transfusion Reactions: No Reported Reaction Past Psychological History: No Psychological Hx Reported Smoking Status: Never smoker Past Alcohol Use History: None Reported Past Drug Use History: None Reported - Past Family History Father Family Medical History: Coronary Artery Disease (CAD), CVA/TIA Additional Family Medical History / Comment(s): Father is . Mother Family Medical History: Coronary Artery Disease (CAD), CVA/TIA Additional Family Medical History / Comment(s): Mother is . Medications and Allergies Home Medications Medication Instructions Recorded Confirmed Type Levothyroxine Sodium [Synthroid] 150 mcg PO DAILY 09/09/17 07/16/21 History hydroCHLOROthiazide 25 mg PO DAILY 09/09/17 07/16/21 History Cyclobenzaprine [Flexeril] 10 mg PO TID PRN 07/16/21 07/16/21 History Naproxen 500 mg PO BID PRN 07/16/21 07/16/21 History Allergies Allergy/AdvReac Type Severity Reaction Status Date / Time banana Allergy Anaphylaxis Verified 07/16/21 16:51 latex Allergy Rash/Hives Verified 07/16/21 16:51 Physical Exam Vitals: Vital Signs Temp Pulse Pulse Resp BP BP Pulse Ox 07/17/21 07:04 98.7 F 80 22 142/82 98 07/17/21 07:00 98.1 F 74 16 168/96 98 07/17/21 06:00 78 22 143/86 96 07/17/21 04:00 98.6 F 79 20 129/79 97 07/17/21 01:00 98.7 F 79 18 132/80 98 07/16/21 21:00 75 18 144/86 97 07/16/21 16:22 77 18 168/79 97 07/16/21 14:12 98.2 F 96 18 146/73 100 Intake and Output 07/16/21 07/17/21 07/17/21 22:59 06:59 14:59 Other: Weight 97.522 kg - Constitutional General appearance: no acute distress, obese - EENT Eyes: EOMI - Neck Neck: no lymphadenopathy - Respiratory Respiratory: bilateral: CTA - Cardiovascular Rhythm: regular Heart sounds: normal: S1, S2 Abnormal Heart Sounds: no S3 Gallop - Gastrointestinal General gastrointestinal: soft, no tenderness - Psychiatric Psychiatric: A&O x's 3 Results CBC & Chem 7: 07/16/21 14:59 07/16/21 14:59 Labs: Abnormal Lab Results - Last 24 Hours (Table) 07/16/21 07/16/21 Range/Units 14:59 14:59 APTT 21.3 L (22.0-30.0) sec BUN 18 H (7-17) mg/dL Glucose 106 H (74-99) mg/dL Thrombosis Risk Factor Assmnt - Choose All That Apply Each Risk Factor Represents 2 Points: Age 61-74 years Thrombosis Risk Factor Assessment Total Risk Factor Score: 2 Thrombosis Risk Factor Assessment Level: Low Risk Assessment and Plan (1) Chest pain Current Visit: No Status: Acute Code(s): R07.9 - CHEST PAIN, UNSPECIFIED SNOMED Code(s): 48254778 (2) Hypertension Current Visit: No Status: Acute Code(s): I10 - ESSENTIAL (PRIMARY) HYPERTENSION SNOMED Code(s): 42925116 (3) Hypothyroidism Current Visit: No Status: Acute Code(s): E03.9 - HYPOTHYROIDISM, UNSPECIFIED SNOMED Code(s): 44980346 Plan: No significant cardiac enzymatic elevation. Reconcile medications. Await cardiology input. Anticipate discharge in the next 24 hours given initial evaluation. She is a full code otherwise.
[2021-07-17 10:40] LABS: African American GFR (CKD) 112.4 (60.0-200.0); Anion Gap 10.6 mmol/L (10.00-18.00); BUN/Creat Ratio 24.5 Ratio (12.00-20.00); Blood Urea Nitrogen 14.7 mg/dL (9.0-27.0); Calcium 8.8 mg/dL (8.7-10.3); Carbon Dioxide 25.4 mmol/L (20.0-27.5); Potassium 4.1 mmol/L (3.5-5.5)
[2021-07-17 10:47] LABS: Basophils # (A) 0.03 X 10*3/uL (0.00-0.10); Basophils % (A) 0.7 %; Eosinophils # (A) 0.14 X 10*3/uL (0.04-0.35); Eosinophils % (A) 3.4 %; HCT 33.8 % (37.2-46.3); HGB 10.9 g/dL (12.0-15.0); Lymphocytes # (A) 1.83 X 10*3/uL (0.90-5.00); Lymphocytes % (A) 43.9 %; MCH 28.5 pg (27.0-32.0); MCHC 32.2 g/dL (32.0-37.0); MCV 88.5 fL (80.0-97.0); Mean Platelet Volume 9.4 fL (9.5-12.2); Monocytes # (A) 0.29 X 10*3/uL (0.20-1.00); Neutrophils # (A) 1.87 X 10*3/uL (1.80-7.70); Neutrophils % (A) 44.8 %; Platelet Count 190 X 10*3/uL (140-440); RBC 3.82 X 10*6/uL (4.10-5.20); RDW 15.6 % (11.5-14.5); WBC 4.17 X 10*3/uL (4.50-10.00)
--- NOTE | 2021-07-17 12:20 | P.CRDCN ---
History of Present Illness Consult date: 07/17/21 History of present illness: Patient is a 61-year-old female with a history of hypertension with complaints of chest pain. She has seen Dr Larsen in the office. Troponins are negative 3. Patient had an episode of chest pain well at work. She reports that the chest pain was a stabbing burning feeling and she became diaphoretic. Her chest pain decreased with rest, but did not go away within a few hours. At that point she came to the ER. She was examined today resting in bed with no reports of chest pain today. She denies chest pain, palpitations, shortness of breath, dizziness, or syncope, edema. She is a nonsmoker. She does have a strong family history of coronary artery disease. EKG showed normal sinus rhythm, chest x-ray was negative for acute pulmonary process. Patient underwent a stress echo in 2019 which was negative for ischemic changes. Echocardiogram showed normal LV function with no abnormal wall motion. At this time patient does not want to undergo a stress test. She would like to be discharged and follow-up outpatient. Blood pressure today is 142/82, pulse 80, oxygen 89% on room air, afebrile. Hemoglobin 10.9, same 4.1, BUN14.7, creatinine 0.6, troponins negative 3. Review of Systems REVIEW OF SYSTEMS At the time of my exam: CONSTITUTIONAL: Denies fever or chills. EYES: Negative for vision changes ENT: Negative for hearing loss CARDIOVASCULAR: Denies chest pain, shortness of breath, diaphoresis, orthopnea, PND or palpitations. VASCULAR: Denies edema RESPIRATORY: Denies cough. GASTROINTESTINAL: Denies abdominal pain, diarrhea, constipation, nausea or vomiting. MUSCULOSKELETAL: Denies myalgias. NEUROLOGIC: Denies numbness, tingling, headache or weakness. ENDOCRINE: Denies fatigue, weight change, polydipsia or polyurina. GENITOURINARY: Denies burning, hematuria or urgency with micturation. HEMATOLOGIC: Denies history of anemia or bleeding. DERMATOLOGY: Denies rash or skin sores PSYCH: Negative for depression or hallucinations. Past Medical History Past Medical History: Hyperlipidemia, Hypertension, Thyroid Disorder Additional Past Medical History / Comment(s): Hypothyroid History of Any Multi-Drug Resistant Organisms: None Reported Past Surgical History: Bariatric Surgery, Cholecystectomy, Hernia Repair, Joint Replacement, Orthopedic Surgery, Tonsillectomy Additional Past Surgical History / Comment(s): Gastric bypass, revision of gastric bypass unsuccessful, total R knee arthroplasty, colonoscopy. Past Anesthesia/Blood Transfusion Reactions: No Reported Reaction Past Psychological History: No Psychological Hx Reported Smoking Status: Never smoker Past Alcohol Use History: None Reported Past Drug Use History: None Reported - Past Family History Father Family Medical History: Coronary Artery Disease (CAD), CVA/TIA Additional Family Medical History / Comment(s): Father is . Mother Family Medical History: Coronary Artery Disease (CAD), CVA/TIA Additional Family Medical History / Comment(s): Mother is . Medications and Allergies Home Medications Medication Instructions Recorded Confirmed Type Levothyroxine Sodium [Synthroid] 150 mcg PO DAILY 09/09/17 07/16/21 History hydroCHLOROthiazide 25 mg PO DAILY 09/09/17 07/16/21 History Cyclobenzaprine [Flexeril] 10 mg PO TID PRN 07/16/21 07/16/21 History Naproxen 500 mg PO BID PRN 07/16/21 07/16/21 History Allergies Allergy/AdvReac Type Severity Reaction Status Date / Time banana Allergy Anaphylaxis Verified 07/16/21 16:51 latex Allergy Rash/Hives Verified 07/16/21 16:51 Physical Exam Vitals: Vital Signs Temp Pulse Pulse Resp BP BP Pulse Ox 07/17/21 07:04 98.7 F 80 22 142/82 98 07/17/21 07:00 98.1 F 74 16 168/96 98 07/17/21 06:00 78 22 143/86 96 07/17/21 04:00 98.6 F 79 20 129/79 97 07/17/21 01:00 98.7 F 79 18 132/80 98 07/16/21 21:00 75 18 144/86 97 07/16/21 16:22 77 18 168/79 97 07/16/21 14:12 98.2 F 96 18 146/73 100 Intake and Output 07/16/21 07/17/21 07/17/21 22:59 06:59 14:59 Other: Weight 97.522 kg PHYSICAL EXAMINATION VITAL SIGNS: Reviewed CONSTITUTIONAL: No apparent distress. HEENT: Head is normocephalic. Pupils are equal, round. Sclerae anicteric. Mucous membranes of the mouth are moist. NECK: No JVD. No carotid bruit. RESPIRATORY: Lungs are clear to auscultation. No chest wall tenderness is noted on palpation or with deep breathing. CARDIAC: Regular rate and rhythm. S1, S2 heard. No murmurs, gallops or rub. ABDOMEN: Soft, nontender. EXTREMITIES: 2+ peripheral pulses, no lower extremity edema and no calf tenderness. NEUROLOGIC EXAMINATION: Patient is awake, alert and oriented x3. INTEGUMENTARY: Warm, absent for rashes or sores PSYCH: Negative for depression or hallucinations, mood appropriate. Results 07/17/21 06:28 07/17/21 06:28 Cardiac Enzymes 07/16/21 07/16/21 07/16/21 Range/Units 14:59 14:59 18:41 AST 33 (14-36) U/L Troponin I <0.012 <0.012 (0.000-0.034) ng/mL 07/16/21 Range/Units 21:42 AST (14-36) U/L Troponin I <0.012 (0.000-0.034) ng/mL Coagulation 07/16/21 Range/Units 14:59 PT 10.6 (9.0-12.0) sec APTT 21.3 L (22.0-30.0) sec CBC 07/16/21 07/17/21 Range/Units 14:59 06:28 WBC 4.4 4.17 L (3.8-10.6) k/uL RBC 4.33 3.82 L (3.80-5.40) m/uL Hgb 12.4 10.9 L (11.4-16.0) gm/dL Hct 38.4 33.8 L (34.0-46.0) % Plt Count 265 190 (150-450) k/uL Comprehensive Metabolic Panel 07/16/21 07/17/21 Range/Units 14:59 06:28 Sodium 139 141 (137-145) mmol/L Potassium 3.9 4.1 (3.5-5.1) mmol/L Chloride 103 105 (98-107) mmol/L Carbon Dioxide 27 25.4 (22-30) mmol/L BUN 18 H 14.7 (7-17) mg/dL Creatinine 0.88 0.6 (0.52-1.04) mg/dL Glucose 106 H 88 (74-99) mg/dL Calcium 9.4 8.8 (8.4-10.2) mg/dL AST 33 (14-36) U/L ALT 23 (4-34) U/L Alkaline Phosphatase 109 (38-126) U/L Total Protein 7.5 (6.3-8.2) g/dL Albumin 4.4 (3.5-5.0) g/dL Current Medications Generic Name Dose Route Start Last Admin Trade Name Freq PRN Reason Stop Dose Admin Cyclobenzaprine HCl 10 mg 07/16/21 17:20 Cyclobenzaprine 10 Mg Tab PO TID PRN Muscle Pain Heparin Sodium (Porcine) 5,000 unit 07/17/21 00:00 07/17/21 07:39 Heparin Sodium,Porcine/Pf 5,000 Unit/0.5 Ml Syringe SQ 5,000 unit Q8HR STORM Administration Hydrochlorothiazide 25 mg 07/17/21 09:00 07/17/21 07:38 Hydrochlorothiazide 25 Mg Tab PO 25 mg DAILY STORM Administration Ibuprofen 400 mg 07/16/21 17:19 Ibuprofen 400 Mg Tab PO Q6HR PRN Mild Pain or Fever > 100.5 Levothyroxine Sodium 150 mcg 07/17/21 06:30 07/17/21 07:39 Levothyroxine 75 Mcg Tab PO 150 mcg DAILY@0630 STORM Administration Morphine Sulfate 4 mg 07/16/21 17:19 Morphine Sulfate 4 Mg/Ml Syringe IV Q4HR PRN Severe Pain Naloxone HCl 0.2 mg 07/16/21 17:19 Naloxone 0.4 Mg/Ml 1 Ml Vial IV Q2M PRN Opioid Reversal Intake and Output 07/16/21 07/17/21 07/17/21 22:59 06:59 14:59 Other: Weight 97.522 kg 07/17/21 06:28 07/17/21 06:28 Assessment and Plan Assessment: Pericardial pain Nonischemic chest pain Normal left ventricular function Negative troponins Hypertension Plan: Continue all current cardiac medications Patient is clear for discharge from a cardiac standpoint To follow-up outpatient in one week with Dr. Larsen for outpatient stress test.
== END 2021-07-17 12:30 | disposition home or self-care (01) ==
LOC: EC 13:56 → 6NMEDSUR 17:19
PROVIDERS: ADMIT Family Medicine; ATTEND Family Medicine
DX: R07.89 Other chest pain (principal); R07.2 Precordial pain; I10 Essential (primary) hypertension; E78.5 Hyperlipidemia, unspecified; E03.9 Hypothyroidism, unspecified; R61 Generalized hyperhidrosis; Z20.822 Contact with and (suspected) exposure to COVID-19; Z79.890 Hormone replacement therapy; Z79.899 Other long term (current) drug therapy; Z91.040 Latex allergy status; Z91.018 Allergy to other foods; Z90.49 Acquired absence of other specified parts of digestive tract; Z96.651 Presence of right artificial knee joint; Z98.84 Bariatric surgery status; Z98.890 Other specified postprocedural states; Z82.49 Family history of ischemic heart disease and other diseases of the circulatory system; Z82.3 Family history of stroke; Z83.3 Family history of diabetes mellitus
CPT/HCPCS: 96372 ×2; 99285; 36415; 93005; 93306; 80053; 80048; 84484; 85025 ×2; 85610; 85730; 87635; 71046; G0378 ×2; J1644

== ENCOUNTER 2022-01-07 13:33 | Observation (INO) | payer MEDICARE, OTHER ==
[2022-01-07 14:37] LABS: Anisocytosis Slight; Basophils # (A) 0.1 k/uL (0-0.2); Basophils % (A) 1 %; Eosinophils # (A) 0.2 k/uL (0-0.7); Eosinophils % (A) 3 %; HCT 41.6 % (34.0-46.0); HGB 13.6 gm/dL (11.4-16.0); Lymphocytes # (A) 2.1 k/uL (1.0-4.8); Lymphocytes % (A) 43 %; MCH 28.6 pg (25.0-35.0); MCHC 32.6 g/dL (31.0-37.0); MCV 87.8 fL (80.0-100.0); Mean Platelet Volume 6.8; Monocytes # (A) 0.2 k/uL (0-1.0); Monocytes % (A) 5 %; Neutrophils # (A) 2.3 k/uL (1.3-7.7); Neutrophils % (A) 47 %; Platelet Count 322 k/uL (150-450); RBC 4.73 m/uL (3.80-5.40); RDW 16.1 % (11.5-15.5); WBC 4.9 k/uL (3.8-10.6)
[2022-01-07 14:42] LABS: Partial Thromboplastin Time 23.3 sec (22.0-30.0); Prothrombin Time 10.7 sec (9.0-12.0)
[2022-01-07 15:07] LABS: ALT 21 U/L (4-34); AST 28 U/L (14-36); African American GFR (CKD) >90 (>60 ml/min/1.73 sqM); Albumin 4.8 g/dL (3.5-5.0); Alkaline Phosphatase 110 U/L (38-126); Anion Gap 7 mmol/L; Blood Urea Nitrogen 15 mg/dL (7-17); Calcium 9.1 mg/dL (8.4-10.2); Carbon Dioxide 28 mmol/L (22-30); Chloride 102 mmol/L (98-107); Glucose 101 mg/dL (74-99); Non-African American GFR(CKD) 81 (>60 ml/min/1.73 sqM); Potassium 4.3 mmol/L (3.5-5.1); Sodium 137 mmol/L (137-145); Total Bilirubin 0.4 mg/dL (0.2-1.3); Total Protein 7.9 g/dL (6.3-8.2)
[2022-01-07] MEDS ORDERED: METOCLOPRAMIDE 5 MG/ML 2 ML VIAL IVP STA (18:30)
[2022-01-07] MEDS ORDERED: KETOROLAC 15 MG/ML 1 ML VIAL IVP STA (18:30)
[2022-01-07] MEDS ORDERED: diphenhydrAMINE 50 MG/ML 1 ML VIAL IVP STA (18:30)
[2022-01-07] MEDS ORDERED: SODIUM CHLORIDE 0.9% 500 ML 500 ML IV ONE (18:31)
[2022-01-07] MEDS ORDERED: MECLIZINE 12.5 MG TAB PO STA (18:31)
--- NOTE | 2022-01-07 18:35 | ED ---
Dizziness HPI - General Chief Complaint: Dizziness Stated Complaint: Hypertensive Time Seen by Provider: 01/07/22 18:03 Source: patient, RN notes reviewed Mode of arrival: ambulatory Limitations: no limitations - History of Present Illness Initial Comments: This is a pleasant 61-year-old female with history of hypertension. She presents the emergency room today complaining of a throbbing headache is essentially global. Patient states is going on for about 1 week. There is been associated lightheadedness and some sensation of dizziness. Patient states that she also had numbness in her right hand earlier today. Patient states this las david for about 1 hour then resolved. There is been no weakness. No vision disturbance. No difficulty with speech. No gait disturbance. Patient still has a sensation of lightheadedness. Patient state her blood pressure was in the realm of 190 over 110. Patient also states that she's been having intermittent chest pains for the last week. no fever or chills, no changes in vision or hearing, no sore throat or difficulty with speech, no neck pain, INTERMITTENT chest pains with some shortness of breath, no abdominal pain, mild nausea with no vomiting, no changes in urination or bowel movements, right hand numbness which resolved,, no extremity pain, no skin rashes or lesions. Patient has no history of headaches MD Complaint: dizziness, lightheadedness - Related Data Home Medications Medication Instructions Recorded Confirmed Levothyroxine Sodium [Synthroid] 150 mcg PO DAILY 09/09/17 07/16/21 hydroCHLOROthiazide 25 mg PO DAILY 09/09/17 07/16/21 Cyclobenzaprine [Flexeril] 10 mg PO TID PRN 07/16/21 07/16/21 Naproxen 500 mg PO BID PRN 07/16/21 07/16/21 Allergies Allergy/AdvReac Type Severity Reaction Status Date / Time banana Allergy Anaphylaxis Verified 01/07/22 13:58 latex Allergy Rash/Hives Verified 01/07/22 13:58 Review of Systems ROS Statement: Those systems with pertinent positive or pertinent negative responses have been documented in the HPI. ROS Other: All systems not noted in ROS Statement are negative. Past Medical History Past Medical History: Hyperlipidemia, Hypertension, Thyroid Disorder Additional Past Medical History / Comment(s): Hypothyroid History of Any Multi-Drug Resistant Organisms: None Reported Past Surgical History: Bariatric Surgery, Cholecystectomy, Hernia Repair, Joint Replacement, Orthopedic Surgery, Tonsillectomy Additional Past Surgical History / Comment(s): Gastric bypass, revision of gastric bypass unsuccessful, total R knee arthroplasty, colonoscopy. Past Anesthesia/Blood Transfusion Reactions: No Reported Reaction Past Psychological History: No Psychological Hx Reported Smoking Status: Never smoker Past Alcohol Use History: None Reported Past Drug Use History: None Reported - Past Family History Father Family Medical History: Coronary Artery Disease (CAD), CVA/TIA Additional Family Medical History / Comment(s): Father is . Mother Family Medical History: Coronary Artery Disease (CAD), CVA/TIA Additional Family Medical History / Comment(s): Mother is . General Exam Limitations: no limitations General appearance: alert, in no apparent distress Head exam: Present: atraumatic, normocephalic, normal inspection Eye exam: Present: normal appearance, PERRL, EOMI. Absent: scleral icterus, conjunctival injection, periorbital swelling ENT exam: Present: normal exam, normal oropharynx, mucous membranes moist, TM's normal bilaterally, normal external ear exam Neck exam: Present: normal inspection, full ROM. Absent: tenderness, meningismus, lymphadenopathy Respiratory exam: Present: normal lung sounds bilaterally. Absent: respiratory distress, wheezes, rales, rhonchi, stridor, chest wall tenderness, accessory muscle use, decreased breath sounds, prolonged expiratory Cardiovascular Exam: Present: regular rate, normal rhythm, normal heart sounds. Absent: systolic murmur, diastolic murmur, rubs, gallop, clicks GI/Abdominal exam: Present: soft, normal bowel sounds. Absent: distended, tenderness, guarding, rebound, rigid Extremities exam: Present: normal inspection, full ROM, normal capillary refill. Absent: tenderness, pedal edema, joint swelling, calf tenderness Back exam: Present: normal inspection Neurological exam: Present: alert, oriented X3, CN II-XII intact, normal gait, o ther (NIH is 1 mild paresthesia right arm). Absent: abnormal gait, motor sensory deficit, reflexes normal Expanded Patient oriented to: Present: person, place, time Speech: Present: fluid speech Cranial nerves: EOM's Intact: Normal, Gag Reflex: Normal, Tongue Deviation: Normal, Nystagmus: Normal, Facial Sensation: Normal, Facial Palsy with Forehead Movement: Normal, Facial Palsy without Forehead Movement: Normal Cerebellar function: Finger to Nose: Normal, Heel to Kc: Normal Upper motor neuron: Osmar Neglect: Normal, Pronator Drift: Normal, Babinski Sign: Normal, Sensory Extinction: Normal Motor strength exam: RUE: 5, LUE: 5, RLE: 5, LLE: 5 Eye Response: (4) open spontaneously Motor Response: (6) obeys commands Verbal Response: (5) oriented [place] Total: 15 Psychiatric exam: Present: normal affect, normal mood Skin exam: Present: warm, dry, intact, normal color. Absent: rash Course Vital Signs 01/07/22 01/07/22 13:51 18:50 Temperature 97.8 F Pulse Rate 94 88 Respiratory 18 18 Rate Blood Pressure 176/91 164/96 O2 Sat by Pulse 99 96 Oximetry - Reevaluation(s) Reevaluation #1: 01/07/22 20:17 Medical record is reviewed Symptoms are improved here in the emergency department Patient is informed of results and questions answered Patient in no distress An NIH score is 0 - Consultations Consultation #1: This was discussed in detail with Dr. Mcfarlane who accepts admission to the patient for possible TIA. Patient was given aspirin. Consultation for neurology. Carotid Doppler and echocardiogram ordered. EKG Findings - EKG Comments: EKG Findings:: EKG done at 2:07 PM and read by the ED attending physician reveals sinus rhythm with a rate of 93. Poor R-wave progression. Normal intervals. Normal axis. No acute ST or T wave changes. When compared to the previous study from June 2021 are no significant changes. Medical Decision Making - Medical Decision Making Patient is improved after medications. Computed tomography scan of the brain is normal. Patient states that the numbness of her right arm has resolved. She states this started about 2:30 PM. Aspirin was given. I'm going to admit the patient for observation, possible TIA. - Lab Data Result diagrams: 01/07/22 14:10 01/07/22 14:10 Lab Results 01/07/22 01/07/22 01/07/22 Range/Units 14:10 14:10 14:10 WBC 4.9 (3.8-10.6) k/uL RBC 4.73 (3.80-5.40) m/uL Hgb 13.6 (11.4-16.0) gm/dL Hct 41.6 (34.0-46.0) % MCV 87.8 (80.0-100.0) fL MCH 28.6 (25.0-35.0) pg MCHC 32.6 (31.0-37.0) g/dL RDW 16.1 H (11.5-15.5) % Plt Count 322 (150-450) k/uL MPV 6.8 Neutrophils % 47 % Lymphocytes % 43 % Monocytes % 5 % Eosinophils % 3 % Basophils % 1 % Neutrophils # 2.3 (1.3-7.7) k/uL Lymphocytes # 2.1 (1.0-4.8) k/uL Monocytes # 0.2 (0-1.0) k/uL Eosinophils # 0.2 (0-0.7) k/uL Basophils # 0.1 (0-0.2) k/uL Anisocytosis Slight PT 10.7 (9.0-12.0) sec INR 1.0 (<1.2) APTT 23.3 (22.0-30.0) sec Sodium 137 (137-145) mmol/L Potassium 4.3 (3.5-5.1) mmol/L Chloride 102 (98-107) mmol/L Carbon Dioxide 28 (22-30) mmol/L Anion Gap 7 mmol/L BUN 15 (7-17) mg/dL Creatinine 0.79 (0.52-1.04) mg/dL Est GFR (CKD-EPI)AfAm >90 (>60 ml/min/1.73 sqM) Est GFR (CKD-EPI)NonAf 81 (>60 ml/min/1.73 sqM) Glucose 101 H (74-99) mg/dL Calcium 9.1 (8.4-10.2) mg/dL Total Bilirubin 0.4 (0.2-1.3) mg/dL AST 28 (14-36) U/L ALT 21 (4-34) U/L Alkaline Phosphatase 110 (38-126) U/L Troponin I (0.000-0.034) ng/mL Total Protein 7.9 (6.3-8.2) g/dL Albumin 4.8 (3.5-5.0) g/dL 01/07/22 Range/Units 14:10 WBC (3.8-10.6) k/uL RBC (3.80-5.40) m/uL Hgb (11.4-16.0) gm/dL Hct (34.0-46.0) % MCV (80.0-100.0) fL MCH (25.0-35.0) pg MCHC (31.0-37.0) g/dL RDW (11.5-15.5) % Plt Count (150-450) k/uL MPV Neutrophils % % Lymphocytes % % Monocytes % % Eosinophils % % Basophils % % Neutrophils # (1.3-7.7) k/uL Lymphocytes # (1.0-4.8) k/uL Monocytes # (0-1.0) k/uL Eosinophils # (0-0.7) k/uL Basophils # (0-0.2) k/uL Anisocytosis PT (9.0-12.0) sec INR (<1.2) APTT (22.0-30.0) sec Sodium (137-145) mmol/L Potassium (3.5-5.1) mmol/L Chloride (98-107) mmol/L Carbon Dioxide (22-30) mmol/L Anion Gap mmol/L BUN (7-17) mg/dL Creatinine (0.52-1.04) mg/dL Est GFR (CKD-EPI)AfAm (>60 ml/min/1.73 sqM) Est GFR (CKD-EPI)NonAf (>60 ml/min/1.73 sqM) Glucose (74-99) mg/dL Calcium (8.4-10.2) mg/dL Total Bilirubin (0.2-1.3) mg/dL AST (14-36) U/L ALT (4-34) U/L Alkaline Phosphatase (38-126) U/L Troponin I <0.012 (0.000-0.034) ng/mL Total Protein (6.3-8.2) g/dL Albumin (3.5-5.0) g/dL Disposition Clinical Impression: TIA (transient ischemic attack), Lightheadedness, Arm paresthesia, right, Uncontrolled hypertension Disposition: ADMITTED IP TO THIS [facility] Condition: Fair Referrals: Jorge Mcfarlane MD [Primary Care Provider] - 1-2 days Time of Disposition: 20:34 Decision to Admit Reason: Admit from EC Decision Time: 20:34
--- NOTE | 2022-01-07 19:22 | XR ---
EXAMINATION TYPE: XR chest 2V DATE OF EXAM: 01/07/2022 7:01 PM COMPARISON: Chest radiographs from 07/16/2021 TECHNIQUE: XR chest 2V Frontal and lateral views of the chest. CLINICAL INDICATION:Female, 61 years old with history of dyspnea; FINDINGS: Lungs/Pleura: There is no evidence of pleural effusion, focal consolidation, or pneumothorax. Pulmonary vascularity: Unremarkable. Heart/mediastinum: Cardiomediastinal silhouette is unremarkable. Musculoskeletal: No acute osseous pathology. IMPRESSION: No acute cardiopulmonary disease/process.
--- NOTE | 2022-01-07 20:07 | CT ---
EXAMINATION TYPE: CT brain wo con CT DLP: 1198.4 mGycm, Automated exposure control for dose reduction was used. DATE OF EXAM: 01/07/2022 7:28 PM COMPARISON: Prior CT Brain from 01/21/2020. CLINICAL INDICATION:Female, 61 years old with history of Headache, TECHNIQUE: Brain: Multiple axial CT images of the brain were obtained without IV contrast. FINDINGS: Brain: Extra-axial spaces: No abnormal extra-axial fluid collections. Ventricular system: Within normal limits Cerebral parenchyma: No acute intraparenchymal hemorrhage or mass effect. The varela-white junction is well differentiated. Cerebellum: Unremarkable. Mass effect: No evidence of midline shift. Intracranial vasculature: unremarkable Soft tissues: Normal. Calvarium/osseous structures: No depressed skull fracture. Paranasal sinuses and mastoid air cells: Mild scattered paranasal sinus disease. Visualized orbits: Right aphakia IMPRESSION: No acute intracranial process.
[2022-01-07] MEDS ORDERED: ASPIRIN 325 MG TAB PO STA (20:16)
[2022-01-07] MEDS ORDERED: ACETAMINOPHEN TAB 325 MG TAB PO PRN (20:29)
[2022-01-07] MEDS: hydroCHLOROthiazide 25 MG TAB PO SCH (21:09)
[2022-01-07] MEDS ORDERED: NALOXONE 0.4 MG/ML 1 ML VIAL IV PRN (22:09)
[2022-01-08] MEDS: HEPARIN SODIUM,PORCINE/PF 5,000 UNIT/0.5 ML SYRINGE SQ SCH ×3 (00:14→14:16)
[2022-01-08] MEDS: SODIUM CHLORIDE 0.9% 1,000 ML IV SCH ×2 (00:33→06:19)
[2022-01-08] MEDS: LEVOTHYROXINE 75 MCG TAB PO SCH (06:19)
--- NOTE | 2022-01-08 08:40 | P.HPIM ---
History of Present Illness H&P Date: 01/08/22 Chief Complaint: Dizziness The patient is 61-year-old white female with history of alcoholism who has been sober since starting Antabuse last month. The patient states her blood pressure has been running high over the last week. Yesterday she came in with significant lightheadedness but right arm and hand numbness. No visual distortion. No dysphagia. No speech issues stated but because of the symptomatology and her blood pressure with concrement headache she is appr opriately admitted. Computed tomography scan supposedly done in the ER was nominal. She describes no overt chest pressure or anginal component. No diaphoresis. No aphasia Review of Systems Constitutional: Denies chills, Denies fever Ears, nose, mouth and throat: Denies headache, Denies sore throat Cardiovascular: Reports as per HPI Respiratory: Denies cough Gastrointestinal: Denies abdominal pain, Denies diarrhea, Denies nausea, Denies vomiting Genitourinary: Denies dysuria, Denies hematuria Musculoskeletal: Reports arm numbness/tingling Integumentary: Denies pruritus, Denies rash Neurological: Reports as per HPI, Reports headaches, Denies convulsions, Denies double vision, Denies gait dysfunction Psychiatric: Denies anxiety, Denies depression Past Medical History Past Medical History: Hyperlipidemia, Hypertension, Thyroid Disorder Additional Past Medical History / Comment(s): Hypothyroid History of Any Multi-Drug Resistant Organisms: None Reported Past Surgical History: Bariatric Surgery, Cholecystectomy, Hernia Repair, Joint Replacement, Orthopedic Surgery, Tonsillectomy Additional Past Surgical History / Comment(s): Gastric bypass, revision of gastric bypass unsuccessful, total R knee arthroplasty, colonoscopy. Past Anesthesia/Blood Transfusion Reactions: No Reported Reaction Past Psychological History: No Psychological Hx Reported Additional Psychological History / Comment(s): Pt resides with her spouse and grandkids. She is independent. Smoking Status: Never smoker Past Alcohol Use History: None Reported Past Drug Use History: None Reported - Past Family History Father Family Medical History: Coronary Artery Disease (CAD), CVA/TIA Additional Family Medical History / Comment(s): Father is . Mother Family Medical History: Coronary Artery Disease (CAD), CVA/TIA Additional Family Medical History / Comment(s): Mother is . Medications and Allergies Home Medications Medication Instructions Recorded Confirmed Type Levothyroxine Sodium [Synthroid] 150 mcg PO DAILY 09/09/17 01/07/22 History hydroCHLOROthiazide 25 mg PO DAILY 09/09/17 01/07/22 History Cyclobenzaprine [Flexeril] 10 mg PO TID PRN 07/16/21 01/07/22 History Naproxen 500 mg PO BID-W/MEALS PRN 07/16/21 01/07/22 History Acetaminophen-Codeine 300-30mg 1 tab PO Q6H PRN 01/07/22 01/07/22 History [Tylenol w/codeine #3] Disulfiram [Antabuse] 250 mg PO DAILY 01/07/22 01/07/22 History Allergies Allergy/AdvReac Type Severity Reaction Status Date / Time banana Allergy Anaphylaxis Verified 01/07/22 22:23 latex Allergy Rash/Hives Verified 01/07/22 22:23 Physical Exam Vitals: Vital Signs Temp Pulse Pulse Resp BP BP Pulse Ox 01/08/22 03:56 98.2 F 90 18 157/89 96 01/08/22 02:00 18 01/07/22 23:30 18 01/07/22 23:24 98 F 87 18 132/82 97 01/07/22 21:00 78 167/100 01/07/22 18:50 88 18 164/96 96 01/07/22 13:51 97.8 F 94 18 176/91 99 Intake and Output 01/07/22 01/08/22 01/08/22 22:59 06:59 14:59 Other: Voiding Method Toilet # Voids 1 Weight 103.873 kg - Constitutional General appearance: cooperative, no acute distress - EENT Eyes: EOMI - Neck Neck: no lymphadenopathy - Respiratory Respiratory: bilateral: CTA - Cardiovascular Rhythm: regular Heart sounds: normal: S1, S2 Abnormal Heart Sounds: no S3 Gallop - Gastrointestinal General gastrointestinal: soft, no tenderness - Psychiatric Psychiatric: A&O x's 3 Results CBC & Chem 7: 01/07/22 14:10 01/07/22 14:10 Labs: Abnormal Lab Results - Last 24 Hours (Table) 01/07/22 01/07/22 01/07/22 Range/Units 14:10 14:10 14:10 RDW 16.1 H (11.5-15.5) % Glucose 101 H (74-99) mg/dL TSH 16.600 H (0.465-4.680) mIU/L Thrombosis Risk Factor Assmnt - Choose All That Apply Any of the Below Risk Factors Present?: Yes Each Risk Factor Represents 2 Points: Age 61-74 years Thrombosis Risk Factor Assessment Total Risk Factor Score: 2 Thrombosis Risk Factor Assessment Level: Low Risk Assessment and Plan (1) Arm paresthesia, right Current Visit: Yes Status: Acute Code(s): R20.2 - PARESTHESIA OF SKIN SNOMED Code(s): 42061631909807366 (2) Lightheadedness Current Visit: Yes Status: Acute Code(s): R42 - DIZZINESS AND GIDDINESS SNOMED Code(s): 753469115 (3) TIA (transient ischemic attack) Current Visit: Yes Status: Acute Code(s): G45.9 - TRANSIENT CEREBRAL ISCHEMIC ATTACK, UNSPECIFIED SNOMED Code(s): 038281033 (4) Uncontrolled hypertension Current Visit: Yes Status: Acute Code(s): I10 - ESSENTIAL (PRIMARY) HYPERTENSION SNOMED Code(s): 54996621 (5) Hypertension Current Visit: No Status: Acute Code(s): I10 - ESSENTIAL (PRIMARY) HYPERTENSION SNOMED Code(s): 17411175 (6) Hypothyroidism Current Visit: No Status: Acute Code(s): E03.9 - HYPOTHYROIDISM, UNSPECIFIED SNOMED Code(s): 17464785 Plan: Add Norvasc for blood pressure. Consult neurology. Carotid Doppler and echocardiogram are pending. Check CBC and CMP in a.m. She is a full code at this time.
--- NOTE | 2022-01-08 08:51 | US ---
EXAMINATION TYPE: US carotid duplex BILAT DATE OF EXAM: 01/08/2022 COMPARISON: US dated 07/10/2015 CLINICAL HISTORY: Stenosis. EXAM MEASUREMENTS: RIGHT: Peak Systolic Velocity (PSV) cm/sec ----- Right CCA: 48.3 ----- Right ICA: 73.5 ----- Right ECA: 58.3 ICA/CCA ratio: 1.5 RIGHT: End Diastole cm/sec ----- Right CCA: 17.5 ----- Right ICA: 29.6 ----- Right ECA: 9.2 LEFT: Peak Systolic Velocity (PSV) cm/sec ----- Left CCA: 47.6 ----- Left ICA: 77.6 ----- Left ECA: 52.3 ICA/CCA ratio: 1.6 LEFT: End Diastole cm/sec ----- Left CCA: 14.2 ----- Left ICA: 26.1 ----- Left ECA: 7.8 VERTEBRALS (direction of flow): Right Vertebral: Not well seen as on prior Left Vertebral: Antegrade Rhythm: Normal Grayscale, color Doppler, spectral Doppler imaging performed the carotid arteries. Waveform analysis does not show significant stenosis of the proximal internal carotid arteries. No significant stenosis seen. Vessels are tortuous. IMPRESSION: No hemodynamic significant stenosis of the proximal internal carotid arteries by Doppler criteria, an indirect measurement of carotid stenosis Criteria for Assigning % of Stenosis / Diameter reduction (Estimation based on the indirect measurements of the internal carotid artery velocities (ICA PSV). 1. Normal (no stenosis)=ICA PSV < 125 cm/s: ratio < 2.0: ICA EDV<40 cm/s. 2. Less than 50% stenosis=ICA PSV < 125 cm/s: ratio < 2.0: ICA EDV<40 cm/s. 3. 50 to 69% stenosis=ICA PSV of 125 to 230 cm/s: ration 2.0 ? 4.0: ICA EDV 40-100 cm/s. 4. Greater than 70% stenosis to near occlusion= ICA PSV > 230 cm/s: ratio > 4.0: ICA EDV > 100 cm/s. 5. Near occlusion= ICA PSV velocities may be low or undetectable: variable ratio and ICA EDV. 6. Total occlusion=unable to detect flow.
[2022-01-08] MEDS: Acetaminophen-Codeine 300-30mg TAB PO PRN ×2 (08:55→14:15)
[2022-01-08] MEDS: hydroCHLOROthiazide 25 MG TAB PO SCH (08:56)
[2022-01-08] MEDS: ASPIRIN 325 MG TAB PO SCH (08:56)
[2022-01-08] MEDS: amLODIPine 5 MG TAB PO SCH (08:56)
--- NOTE | 2022-01-08 09:28 | P.CNNES ---
History of Present Illness Consult date: 01/08/22 Requesting physician: Moe Vergara Reason for Consult: TIA, dizziness History of Present Illness: This is a 61-year-old woman who has history of hypertension, hypothyroidism presented to the emergency department on 01/07/2022 because of dizziness, headache and uncontrolled hypertension. She stated for the past one week her blood pressure has been uncontrolled and at home, systolic blood pressures was in 190's. Also during that duration was having bilateral frontal headache, was throbbing, was severe intensity, some photophobia but denies nausea, vomiting. [place] dizzy with her uncontrolled hypertension, some right eye flutter. And yesterday has numbness of right hand but last one hour then resolved. She denied any focal weakness, loss of consciounses. Denies history of stroke, TIA or seizure. She feels her headache is better today compared to yesterday and feels her symptoms are better but continues to have light-headedness. Denies being on antiplatelets or anticoagulation. Denies tobacco use. Some of the workup during this hospital visit consisted of: CT of the head is reported as no acute intracranial process. I personally reviewed the CT of the head and there is no acute or subacute ischemic stroke and there is no intracranial hemorrhage. Patient TSH is 16.60 which is abnormal suggestive of hypothyroidism On initial presentation patient blood pressure was 176/91 and controlled to be on the high side. Review of Systems Review of system: The 12 point system was reviewed and apparent positive and negative per HPI. Past Medical History Past Medical History: Hyperlipidemia, Hypertension, Thyroid Disorder Additional Past Medical History / Comment(s): Hypothyroid History of Any Multi-Drug Resistant Organisms: None Reported Past Surgical History: Bariatric Surgery, Cholecystectomy, Hernia Repair, Joint Replacement, Orthopedic Surgery, Tonsillectomy Additional Past Surgical History / Comment(s): Gastric bypass, revision of gastric bypass unsuccessful, total R knee arthroplasty, colonoscopy. Past Anesthesia/Blood Transfusion Reactions: No Reported Reaction Past Psychological History: No Psychological Hx Reported Additional Psychological History / Comment(s): Pt resides with her spouse and grandkids. She is independent. Smoking Status: Never smoker Past Alcohol Use History: None Reported Past Drug Use History: None Reported - Past Family History Father Family Medical History: Coronary Artery Disease (CAD), CVA/TIA Additional Family Medical History / Comment(s): Father is . Mother Family Medical History: Coronary Artery Disease (CAD), CVA/TIA Additional Family Medical History / Comment(s): Mother is . Medications and Allergies Home Medications Medication Instructions Recorded Confirmed Type Levothyroxine Sodium [Synthroid] 150 mcg PO DAILY 09/09/17 01/07/22 History hydroCHLOROthiazide 25 mg PO DAILY 09/09/17 01/07/22 History Cyclobenzaprine [Flexeril] 10 mg PO TID PRN 07/16/21 01/07/22 History Naproxen 500 mg PO BID-W/MEALS PRN 07/16/21 01/07/22 History Acetaminophen-Codeine 300-30mg 1 tab PO Q6H PRN 01/07/22 01/07/22 History [Tylenol w/codeine #3] Disulfiram [Antabuse] 250 mg PO DAILY 01/07/22 01/07/22 History Allergies Allergy/AdvReac Type Severity Reaction Status Date / Time banana Allergy Anaphylaxis Verified 01/07/22 22:23 latex Allergy Rash/Hives Verified 01/07/22 22:23 Physical Examination - Vital Signs Vital Signs: Vital Signs Temp Pulse Pulse Resp BP BP Pulse Ox 01/08/22 03:56 98.2 F 90 18 157/89 96 01/08/22 02:00 18 01/07/22 23:30 18 01/07/22 23:24 98 F 87 18 132/82 97 01/07/22 21:00 78 167/100 01/07/22 18:50 88 18 164/96 96 01/07/22 13:51 97.8 F 94 18 176/91 99 Intake and Output 01/07/22 01/08/22 01/08/22 22:59 06:59 14:59 Other: Voiding Method Toilet # Voids 1 Weight 103.873 kg GENERAL: The patient is lying in bed and is not in acute distress. CHEST: The heart rate is regular rate rhythm. No murmurs to auscultation. LUNG: Clear to auscultation bilaterally no wheezing noted throughout. Not labored breathing. ABDOMEN/GI: Bowel sounds present in all 4 quadrants. No tenderness to palpation throughout. NEUROLOGICAL: Higher mental function: The patient is awake, alert, oriented to self, place and time. Patient is following commands. No aphasia and no neglect. Cranial nerves: The pupils are round, equal and reactive to light and accommodation. Visual alvarado are full to confrontation throughout. Extraocular movement is intact no nystagmus is noted. Facial sensation is normal to touch throughout. The facial strength is normal throughout. Hearing is normal bilaterally to hand rub. Tongue is midline and moved [id number] without any difficulty. No dysarthria is noted. Shoulder shrug is normal bilaterally. Motor: Gait is normal. The strength is 5 over 5 throughout. Normal tone and bulk. Cerebellum: Normal finger to nose heel to larios bilaterally. Sensation: Sensation is normal to touch throughout. Reflexes (right/left): 2+ throughout. Plantars is right is upgoing while left is mute. Results - Laboratory Findings CBC and BMP: 01/07/22 14:10 01/07/22 14:10 Abnormal Lab Findings: Abnormal Labs 01/07/22 01/07/22 01/07/22 14:10 14:10 14:10 RDW 16.1 H Glucose 101 H TSH 16.600 H Assessment and Plan Assessment: Likely Transient Ischemic Attack due to uncontrolled hypertension for past one week (presented with numbness of right hand, feeling light-headed and dizzy and had right eye flutter). Uncontrolled Hypertension Hypothyroidism and seems uncontrolled Plan: Carotid duplex is ordered by the ED team is pending I ordered MRI of the brain w/ and w/o. Aspirin 325 was started by the ED team. I started the patient on Lipitor 20 mg daily at bedtime for secondary stroke prophylaxis. 2-D echo and lipid panel is ordered by the ED team is pending Ordered HbA1c and orthostatic vitals. PT and OT are consulted as well as SOCK FOLDER Every 4 hours neuro checks On cardiac monitoring We'll defer the hypothyroidism management to the primary team For DVT prophylaxis On the subcu heparin 5000 units every 8 hours. Thank you for the consultation. Chandler Edward M.D. Neuro-Hospitalist Time with Patient: Greater than 30
--- NOTE | 2022-01-08 11:11 | CA ---
Transthoracic Echo Report Name: Suzette Conde Age: 61 Gender: F : 1960 Exam Date: 01/08/2022 09:16 Exam Location: [place] [facility] Ht (in): 52 Wt (lb): 211 Ordering Physician: Moe Vergara Attending/Referring Phys: Knuckle Bender Suzette Lucas RDCS Procedure CPT: Indications: Thrombus Cardiac Hx: Technical Quality: Contrast 1: Total Dose (mL): Contrast 2: Total Dose (mL): MEASUREMENTS (Male / Female) Normal Values 2D ECHO LV Diastolic Diameter PLAX 4.2 cm 4.2 - 5.9 / 3.9 - 5.3 cm LV Systolic Diameter PLAX 2.8 cm IVS Diastolic Thickness 1.3 cm 0.6 - 1.0 / 0.6 - 0.9 cm LVPW Diastolic Thickness 1.9 cm 0.6 - 1.0 / 0.6 - 0.9 cm LV Relative Wall Thickness 0.8 RV Internal Dim ED PLAX 2.6 cm M-MODE Aortic Root Diameter MM 3.3 cm MV E Point Septal Separation 0.4 cm AV Cusp Separation MM 1.8 cm FINDINGS Left Ventricle Normal left ventricular size, wall thickness, systolic function with no obvious regional wall motion abnormalities. The ejection fraction is visually estimated at 50-55 %. Right Ventricle The right ventricle is normal in size and function. Right Atrium The right atrium is normal in size. Left Atrium The left atrium is normal in size. Mitral Valve Structurally normal mitral valve. There is mild mitral regurgitation. Aortic Valve Structurally normal aortic valve without significant sclerosis or stenosis. There is no aortic regurgitation. Tricuspid Valve Structurally normal tricuspid valve without significant stenosis. Pulmonary artery systolic pressure is normal. Pulmonic Valve Structurally normal pulmonic valve without significant stenosis. There is no pulmonic regurgitation. Pericardium Normal pericardium without effusion. Aorta Normal aortic root dimension. CONCLUSIONS Normal LV systolic function Previewed by: Dr. Ian Sheppard MD (Electronically Signed) Final Date: 08 January 2022 11:11
[2022-01-08] MEDS ORDERED: ALPRAZolam 0.5 MG TAB PO STA (12:09)
--- NOTE | 2022-01-08 14:28 | MR ---
EXAMINATION TYPE: MR brain wo/w con DATE OF EXAM: 01/08/2022 COMPARISON: CT brain 01/07/2022 HISTORY: Stroke, dizziness, headache, numbness on the right TECHNIQUE: Multiplanar, multisequence images of the brain and brainstem is performed without and with IV contras t, utilizing 10 mL intravenous Gadavist . FINDINGS: Fast brain protocol utilized due to patient's appropriate. Diffusion weighted images demonstrate no evidence of a recent infarct or other diffusion abnormality. There is no extra-axial fluid collection. There is scattered and confluent hyperintensity the periv entricular, subcortical white matter on inversion recovery T2-weighted sequences The ventricular syst em and cisternal spaces are normal in size and appearance. The brain volume is age appropriate. Midline structures demonstrate normal morphology, partially empty sella. The craniocervical junction appears within normal limits. Post contrast images demonstrate no abnormal enhancement. The dural v enous sinuses appear patent. The visualized sinuses show some mucosal disease in the ethmoid air cell s, and the globes are intact. IMPRESSION: Nonspecific white matter demyelination. No evident subacute ischemia.
[2022-01-08 16:37] LABS: Chol/HDL Ratio 2.54 Ratio; LDL Cholesterol,Calculated 156.5 mg/dL (0.0-131.0); VLDL Calculation 11.52 mg/dL (5.00-40.00)
[2022-01-08] MEDS ORDERED: ATORVASTATIN 20 MG TAB PO SCH (21:00)
[2022-01-09] MEDS: SODIUM CHLORIDE 0.9% 1,000 ML IV SCH ×3 (01:13→13:25)
[2022-01-09] MEDS: HEPARIN SODIUM,PORCINE/PF 5,000 UNIT/0.5 ML SYRINGE SQ SCH ×2 (01:14→10:04)
[2022-01-09 04:39] VITALS: RESP 18
[2022-01-09] MEDS: LEVOTHYROXINE 75 MCG TAB PO SCH (06:09)
[2022-01-09 08:11] LABS: HCT 37.1 % (34.0-46.0); HGB 12.2 gm/dL (11.4-16.0); MCH 28.9 pg (25.0-35.0); MCHC 32.9 g/dL (31.0-37.0); MCV 87.7 fL (80.0-100.0); Mean Platelet Volume 7.4; Platelet Count 258 k/uL (150-450); RBC 4.23 m/uL (3.80-5.40); RDW 15.7 % (11.5-15.5); WBC 4.8 k/uL (3.8-10.6)
[2022-01-09 09:03] LABS: ALT 17 U/L (4-34); AST 23 U/L (14-36); African American GFR (CKD) >90 (>60 ml/min/1.73 sqM); Albumin 3.9 g/dL (3.5-5.0); Alkaline Phosphatase 105 U/L (38-126); Anion Gap 7 mmol/L; Blood Urea Nitrogen 17 mg/dL (7-17); Calcium 9.1 mg/dL (8.4-10.2); Carbon Dioxide 28 mmol/L (22-30); Chloride 101 mmol/L (98-107); Glucose 97 mg/dL (74-99); Non-African American GFR(CKD) >90 (>60 ml/min/1.73 sqM); Potassium 3.8 mmol/L (3.5-5.1); Sodium 136 mmol/L (137-145); Total Bilirubin 0.5 mg/dL (0.2-1.3); Total Protein 6.5 g/dL (6.3-8.2)
[2022-01-09 09:19] LABS: T4, Free (Free Thyroxine) 1.24 ng/dL (0.78-2.19)
--- NOTE | 2022-01-09 09:31 | P.PN ---
Subjective Progress Note Date: 01/09/22 The patient is seen at bedside and is feeling better. Objective - Vital Signs Vital signs: Vital Signs Temp 98.3 F 01/09/22 04:00 Pulse 74 01/09/22 04:00 Resp 18 01/09/22 04:00 BP 132/71 01/09/22 04:00 Pulse Ox 98 01/09/22 04:00 FiO2 Intake & Output 01/08/22 01/09/22 01/09/22 18:59 06:59 18:59 Intake Total 480 240 Balance 480 240 Intake: Oral 480 240 Other: Voiding Method Toilet Toilet - Exam GENERAL: The patient is lying in bed and is not in acute distress. NEUROLOGICAL: Higher mental function: The patient is awake, alert, oriented to self, place and time. Patient is following commands. No aphasia and no neglect. Cranial nerves: The pupils are round, equal and reactive to light and accommodation. Visual alvarado are full to confrontation throughout. Extraocular movement is intact no nystagmus is noted. Facial sensation is normal to touch throughout. The facial strength is normal throughout. Hearing is normal rai aterally to hand rub. Tongue is midline and moved [id number] without any difficulty. No dysarthria is noted. Shoulder shrug is normal bilaterally. Motor: Gait is normal. The strength is 5 over 5 throughout. Normal tone and bulk. Cerebellum: Normal finger to nose heel to larios bilaterally. Sensation: Sensation is normal to touch throughout. Reflexes (right/left): 2+ throughout. Plantars is right is upgoing while left is mute. Some of the workup during this hospital visit consisted of: Lipid panel: [place] start 57, cholesterol 277, LDL 156 and HDLs 109 HbA1c: 5.4 Patient TSH is 16.60 which is abnormal and repeated is 36. but free T4 is 1.24 CT of the head is reported as no acute intracranial process. I personally reviewed the CT of the head and there is no acute or subacute ischemic stroke and there is no intracranial hemorrhage. MRI of the brain is reported as nonspecific white matter edema lesion. No evidence of subacute ischemia. I personally reviewed the MRI and agree there is no acute subacute ischemia. 2-D echo was reported as normal left ventricle stalled function. Left atrium is normal size. Carotid duplex is reported as no hemodynamic significant stenosis of the proximal internal carotid arteries by Doppler criteria. - Labs CBC & Chem 7: 01/09/22 06:29 01/09/22 06:29 Labs: Abnormal Lab Results - Last 24 Hours (Table) 01/08/22 01/09/22 01/09/22 Range/Units 08:00 06: 06:29 RDW 15.7 H (11.5-15.5) % Sodium 136 L (137-145) mmol/L Cholesterol 277.00 H (0.00-200.00) mg/dL LDL Cholesterol, Calc 156.5 H (0.0-131.0) mg/dL HDL Cholesterol 109.00 H (40.00-60.00) mg/dL TSH 36.000 H (0.465-4.680) mIU/L Assessment and Plan Assessment: Likely Transient Ischemic Attack due to uncontrolled hypertension for past one week (presented with numbness of right hand, feeling light-headed and dizzy and had right eye flutter). Uncontrolled Hypertension---improving. Hypothyroidism Dyslipidemia Plan: Continue Aspirin 325mg daily (new during this admission) and Lipitor 20 mg daily at bedtime for secondary stroke prophylaxis. PT and OT are consulted as well as MAIN[employer] ARCHITECT Every 4 hours neuro checks On cardiac monitoring We'll defer the hypothyroidism management to the primary team For DVT prophylaxis On the subcu heparin 5000 units every 8 hours. Patient is clear for discharge from neurological perspective. Please notify neurology team if any further concerns. Chandler Edward M.D. Neuro-Hospitalist Time with Patient: Less than 30
[2022-01-09] MEDS: hydroCHLOROthiazide 25 MG TAB PO SCH (10:01)
[2022-01-09] MEDS: amLODIPine 5 MG TAB PO SCH (10:01)
[2022-01-09] MEDS: ASPIRIN 325 MG TAB PO SCH (10:01)
[2022-01-09 12:02] VITALS: BP 144/85; PULSE 75; TEMP 97.9
--- NOTE | 2022-01-10 00:12 | P.DS ---
Providers Date of admission: 01/07/22 20:29 Attending physician: Jorge Mcfarlane Consults: 01/07/22 20:30 Consult Physician Urgent Consulting Provider: Chandler Edward Consult Reason/Comments: TIA, dizziness Do you want consulting provider notified?: Yes Primary care physician: Jorge Mcfarlane Hospital Course: Diagnoses: Transient dizziness, suspicious for TIA, resolved completely upon discharge Hypertension, uncontrolled on admission, better controlled upon discharge Hypothyroidism Dyslipidemia This is a pleasant 61 years old female with multiple medical problems presents because of dizziness and dyspnea and found to have uncontrolled hypertension on admission Patient has admitted to the general medical floor evaluated by neurologist, workup was unremarkable showing brain MRI with no acute ischemia, echocardiogram with ejection fraction of 50-55%, carotid Dopplers was negative and brain CT and chest x-ray were unremarkable as well, please refer to wall report for more details. She was divided by neurologist and started on aspirin Also she is continued with her home dose of hydrochlorothiazide 25 mg, Norvasc is admitted for better control of blood pressure with recommendation for follow- up outpatient for continued care off care and monitor blood pressure closely and patient informed and agreed Today patient is back to her normal self and she denies any other symptoms, no headache or dizziness, no weakness or numbness. No blurred vision or slurred speech. No chest pain or dyspnea. No change in urine or bowel habits. No fever Patient was so adamant and eager to be discharged today Patient has been cleared for discharge by neurologist Problems and management plan were discussed with the patient and he verbalized understanding and acceptance Patient was found stable and can be discharged home in guarded prognosis however he needs follow-up as an outpatient. Patient was instructed to follow up with PCP Dr. Mcfarlane within one week and patient agrees Patient also was informed to follow up with a neurologist as an outpatient, contact information for Dr. rogerio Alvarado AND Dr. rogerio Middleton, and Dr. Morris her provided for the patient with recommendation to follow up in 7-10 days and she agrees to call and make her own appointment as today is weakened Physical exam Gen: patient is a AAOx3, no distress CVS: S1-S2, RRR, no murmur Lungs: B/L CTA, no wheezing Abdomen: soft, no distention, no tenderness, positive bowel sounds Extremity: no leg edema or induration Time spent more than 35 minutes Patient Condition at Discharge: Fair Plan - Discharge Summary New Discharge Prescriptions: New Atorvastatin [Lipitor] 20 mg PO HS #30 tab amLODIPine [Norvasc] 5 mg PO DAILY #30 tab Aspirin 325 mg PO DAILY #30 tab Continue Levothyroxine Sodium [Synthroid] 150 mcg PO DAILY hydroCHLOROthiazide 25 mg PO DAILY Cyclobenzaprine [Flexeril] 10 mg PO TID PRN PRN Reason: Muscle Pain Disulfiram [Antabuse] 250 mg PO DAILY Acetaminophen-Codeine 300-30mg [Tylenol w/codeine #3] 1 tab PO Q6H PRN PRN Reason: Pain Discontinued Naproxen 500 mg PO BID-W/MEALS PRN PRN Reason: Pain Discharge Medication List Levothyroxine Sodium [Synthroid] 150 mcg PO DAILY 09/09/17 [History] hydroCHLOROthiazide 25 mg PO DAILY 09/09/17 [History] Cyclobenzaprine [Flexeril] 10 mg PO TID PRN 07/16/21 [History] Acetaminophen-Codeine 300-30mg [Tylenol w/codeine #3] 1 tab PO Q6H PRN 01/07/22 [History] Disulfiram [Antabuse] 250 mg PO DAILY 01/07/22 [History] Aspirin 325 mg PO DAILY #30 tab 01/09/22 [Rx] Atorvastatin [Lipitor] 20 mg PO HS #30 tab 01/09/22 [Rx] amLODIPine [Norvasc] 5 mg PO DAILY #30 tab 01/09/22 [Rx] Follow up Appointment(s)/Referral(s): Jorge Mcfarlane MD [Primary Care Provider] - 1-2 days Gabriel Figueroa MD [REFERRING] - 1 Week Pati Figueroa MD [REFERRING] - 1 Week Nehemiah Morris MD [Medical Doctor] - 1 Week Patient Instructions/Handouts: Transient Ischemic Attack (DC) Activity/Diet/Wound Care/Special Instructions: Heart healthy diet Activity is restricted till you see your doctor Discharge Disposition: HOME SELF-CARE
== END 2022-01-09 15:03 | disposition home or self-care (01) ==
LOC: EC 13:33 → 3SCARD 20:29
PROVIDERS: ADMIT Family Medicine; ATTEND Family Medicine
DX: R42 Dizziness and giddiness (principal); I10 Essential (primary) hypertension; R20.2 Paresthesia of skin; R20.0 Anesthesia of skin; E78.5 Hyperlipidemia, unspecified; E03.9 Hypothyroidism, unspecified; I34.0 Nonrheumatic mitral (valve) insufficiency; F10.20 Alcohol dependence, uncomplicated; Z79.890 Hormone replacement therapy; Z79.899 Other long term (current) drug therapy; Z91.040 Latex allergy status; Z91.018 Allergy to other foods; Z98.84 Bariatric surgery status; Z96.651 Presence of right artificial knee joint; Z90.49 Acquired absence of other specified parts of digestive tract; Z82.49 Family history of ischemic heart disease and other diseases of the circulatory system; Z82.3 Family history of stroke
CPT/HCPCS: 96372 ×2; 96361; 96374; 96375; 99285; 36415; 93005; 93306; 97161; 97165; 92610; 92523; 84439; 83880; 80061; 80053 ×2; 84443 ×2; 84484; 85025; 85027; 85610; 85730; 83036; 71046; 93880; 70450; 70553; G0378 ×3; J1200; J2765; J1644 ×2; A9585

== ENCOUNTER → 2022-08-21 | Outpatient (CLI) | payer MEDICARE, OTHER ==
[2022-08-21 12:33] LABS: Partial Thromboplastin Time 23.7 sec (22.0-30.0); Prothrombin Time 10.4 sec (9.0-12.0)
[2022-08-21 16:54] LABS: HCT 37.2 % (37.2-46.3); HGB 11.4 g/dL (12.0-15.0); MCH 27.3 pg (27.0-32.0); MCHC 30.6 g/dL (32.0-37.0); NRBC Per 100 WBC 0 /100 WBCS (0.0-0.0); Platelet Count 264 X 10*3/uL (140-440); RBC 4.18 X 10*6/uL (4.10-5.20)
[2022-08-21 17:10] LABS: African American GFR (CKD) 106.1 (60.0-200.0); Albumin 4.2 g/dL (3.8-4.9); Albumin/Globulin Ratio 1.75 (1.60-3.17); Anion Gap 13.2 mmol/L (10.00-18.00); BUN/Creat Ratio 16.29 Ratio (12.00-20.00); Blood Urea Nitrogen 11.4 mg/dL (9.0-27.0); Carbon Dioxide 24.8 mmol/L (20.0-27.5); Globulin 2.4 g/dL (1.6-3.3); Non-African American GFR(CKD) 91.6 (60.0-200.0); Total Bilirubin 0.4 mg/dL (0.30-1.20); Total Protein 6.6 g/dL (6.2-8.2)
== END | disposition home or self-care (01) ==
LOC: LABPAT 10:35
PROVIDERS: ATTEND Orthopaedic Surgery
DX: Z01.812 Encounter for preprocedural laboratory examination (principal)
CPT/HCPCS: 80053; 85027; 85610; 85730; 87070

== ENCOUNTER 2023-08-18 05:57 | Emergency (ER) | payer MEDICARE, OTHER ==
[2023-08-18 06:37] VITALS: TEMP 98
--- NOTE | 2023-08-18 06:49 | ED ---
General Adult HPI - General Chief complaint: Extremity Problem,Nontraumatic Stated complaint: Left leg pain Time Seen by Provider: 08/18/23 06:35 Source: patient, RN notes reviewed Mode of arrival: ambulatory Limitations: no limitations - History of Present Illness Initial comments: Patient is a 63-year-old female presenting to the emergency room today with a chief complaint of pain, swelling to the left lower leg. Does admit that symptoms started approximate 1 month ago. Denies any injury or trauma. Patient does admit to pain to the posterior aspect of the left lower leg. States she is noticed increased swelling. Denies any other complaints or symptoms. Denies any history of DVT. Patient denies any recent fever, chills, shortness of annie th, chest pain, back pain, abdominal pain, nausea or vomiting, numbness or tingling, headaches or visual changes, or any other complaints. - Related Data Home Medications Medication Instructions Recorded Confirmed Levothyroxine Sodium [Synthroid] 225 mcg PO DAILY 09/09/17 08/31/22 hydroCHLOROthiazide 25 mg PO DAILY 09/09/17 08/31/22 Cyclobenzaprine [Flexeril] 10 mg PO TID PRN 07/16/21 08/31/22 Acetaminophen-Codeine 300-30mg 1 tab PO BID 01/07/22 08/31/22 [Tylenol w/codeine #3] Naproxen [Naprosyn] 100 mg PO DIRECTED PRN 08/25/22 08/31/22 Rescue Inhaler (Unknown Name) 1 puff INHALATION DIRECTED PRN 08/25/22 08/31/22 Previous Rx's Medication Instructions Recorded Aspirin 325 mg PO DAILY #30 tab 01/09/22 Atorvastatin [Lipitor] 20 mg PO HS #30 tab 01/09/22 amLODIPine [Norvasc] 5 mg PO DAILY #30 tab 01/09/22 Aspirin 325 mg PO BID #60 tab 08/31/22 HYDROcodone/APAP 7.5-325MG [[place] 1 - 2 tab PO Q6H PRN #32 tab 08/31/22 7.5-325] Sennosides [Senokot] 2 tab PO DAILY PRN #60 tablet 08/31/22 Cephalexin [Keflex] 500 mg PO TID 10 Days #30 cap 08/18/23 Allergies Allergy/AdvReac Type Severity Reaction Status Date / Time banana Allergy Anaphylaxis Verified 08/18/23 06:28 latex Allergy Anaphylaxis Verified 08/18/23 06:28 Review of Systems ROS Statement: Those systems with pertinent positive or pertinent negative responses have been documented in the HPI. ROS Other: All systems not noted in ROS Statement are negative. Past Medical History Past Medical History: Hyperlipidemia, Hypertension, Thyroid Disorder Additional Past Medical History / Comment(s): Hypothyroid History of Any Multi-Drug Resistant Organisms: None Reported Past Surgical History: Bariatric Surgery, Cholecystectomy, Hernia Repair, Joint Replacement, Orthopedic Surgery, Tonsillectomy Additional Past Surgical History / Comment(s): Gastric bypass, revision of gastric bypass unsuccessful, total R knee arthroplasty, colonoscopy. Past Anesthesia/Blood Transfusion Reactions: No Reported Reaction Past Psychological History: No Psychological Hx Reported Smoking Status: Never smoker, Second hand smoke exposure Past Drug Use History: None Reported - Past Family History Father Family Medical History: Coronary Artery Disease (CAD), CVA/TIA Additional Family Medical History / Comment(s): Father is . Mother Family Medical History: Coronary Artery Disease (CAD), CVA/TIA Additional Family Medical History / Comment(s): Mother is . General Exam - General Exam Comments Initial Comments: General: The patient is awake and alert, in no distress, and does not appear acutely ill. Neck: The neck is supple Respiratory: Respirations are non-labored. Musculoskeletal: Patient does have some mild swelling when compared bilaterally to the left lower extremity. No pitting edema. Pedal pulse 2+. Sensations intact. Full range of motion. Strength 5/5. Neurological: A&O x 3. CN II-XII intact, There are no obvious motor or sensory deficits. Coordination appears grossly intact. Speech is normal. Skin: Skin is warm and dry and no rashes or lesions are noted. Psychiatric: Normal mood and affect. Limitations: no limitations Course Vital Signs 08/18/23 06:26 Temperature 98 F Pulse Rate 93 Respiratory 20 Rate O2 Sat by Pulse 98 Oximetry Medical Decision Making - Medical Decision Making History was obtained from patient/Nurse/Family/ Initial assessment and chief complaint: Leg pain Chronic conditions affecting care: Hypertension Social determinants affecting care: None Differential diagnosis included, but not limited to: DVT, muscle strain, cellulitis, neuropathy 63-year-old female presented to the emergency room today with a chief complaint of pain, swelling to the left lower leg. Does admit that symptoms started 1 month ago. Denies any injury or trauma. Patient vitals have been stable. No fever here in the emergency room. Did have some mild swelling when compared bilaterally. Patient did have Doppler ultrasound which was negative for any evidence of DVT. Was discussed with patient about concern for possible cellulitis. Discussed about starting antibiotics. Patient will be started on K eflex and advised to follow-up with her PCP. Advised to return if any symptoms increase or worsen or for any other concerns. States understanding and is agreement this plan. Disposition Clinical Impression: Leg swelling, Cellulitis, Deep vein thrombosis (DVT) of upper extremity Disposition: HOME SELF-CARE Condition: Good Additional Instructions: Please use medication as discussed. Please follow-up with family doctor in the next 2 days. Please return to emergency room if the symptoms increase or worsen or for any other concerns. Prescriptions: Cephalexin [Keflex] 500 mg PO TID 10 Days #30 cap Is patient prescribed a controlled substance at d/c from ED?: No Referrals: Joreg Mcfarlane MD [Primary Care Provider] - 1-2 days Time of Disposition: 08:51
[2023-08-18] MEDS ORDERED: HYDROcodone/APAP 5-325MG 1 EACH TAB PO STA (07:58)
--- NOTE | 2023-08-18 08:22 | US ---
EXAMINATION TYPE: US venous doppler duplex LE LT DATE OF EXAM: 08/18/2023 7:05 AM COMPARISON: 06/26/2018 CLINICAL INDICATION: Female, 63 years old with history of swelling; pain in LLE and redness x 1 month SIDE PERFORMED: Left TECHNIQUE: The lower extremity deep venous system is examined utilizing real time linear array sonog angela with graded compression, doppler sonography and color-flow sonography. VESSELS IMAGED: Common Femoral Vein Deep Femoral Vein Greater Saphenous Vein * Femoral Vein Popliteal Vein Small Saphenous Vein * Proximal Calf Veins (* superficial vessels) Right Leg: NA Left Leg: Negative for DVT IMPRESSION: Grayscale, color doppler, spectral doppler imaging performed of the deep veins of the lo wer extremities. There is normal flow, compressibility, vascular waveforms.
[2023-08-18 09:32] VITALS: BP 139/61; PULSE 75; RESP 16
== END 2023-08-18 09:06 | disposition home or self-care (01) ==
LOC: EC 05:57
DX: L03.116 Cellulitis of left lower limb (principal); I82.629 Acute embolism and thrombosis of deep veins of unspecified upper extremity; I10 Essential (primary) hypertension; E03.9 Hypothyroidism, unspecified; Z79.890 Hormone replacement therapy; Z79.899 Other long term (current) drug therapy; Z91.040 Latex allergy status; Z91.018 Allergy to other foods; Z77.22 Contact with and (suspected) exposure to environmental tobacco smoke (acute) (chronic)
CPT/HCPCS: 99283

== ENCOUNTER → 2023-09-07 | Outpatient (CLI) | payer MEDICARE, OTHER ==
--- NOTE | 2023-09-07 10:02 | MM ---
Reason for Exam: Clinical finding. Last mammogram was performed 3 year(s) and 9 month(s) ago. Indicated Problems: Pain of the left side for 1 Month(s). Patient History: Menarche at age 12. First Full-Term at age 18. Postmenopausal. 1998, Benign Excisional Biopsy on the left side. 1998, Benign Excisional Biopsy on the left side. Paternal aunt had breast cancer. Risk Values: Priscilla 5 year model risk: 2.0%. NCI Lifetime model risk: 7.6%. Prior Study Comparison: 02/06/2014 Bilateral Screening Mammogram, [facility]. 09/29/2015 Bilateral Screening Mammogram, [facility]. 12/13/2019 Bilateral Diagnostic Mammogram, [facility]. 12/13/2019 Bilateral Diagnostic Ultrasound, [facility]. Tissue Density: There are scattered fibroglandular densities. Findings: Analyzed By CAD. No significant change from prior exams. Overall Assessment: Benign, BI-RAD 2 Management: Screening Mammogram of both breasts in 1 year. Clinical management of patient's left breast pain. Results were given to the patient verbally at the time of exam. Patient should continue monthly self-breast exams. A clinical breast exam by your physician is recommended on an annual basis. This exam should not preclude additional follow-up of suspicious palpable abnormalities. Note on Priscilla scores and lifetime risk: 1. A Priscilla score greater than 3% is considered moderate risk. If this is the case, consider specialist referral to assess eligibility for a risk reducing agent. 2. If overall lifetime risk for the development of breast cancer is 20% or higher, the patient may qualify for future screening with alternating mammogram and breast MRI. Electronically signed and approved by: Afua Stephens M.D. Radiologist
== END | disposition home or self-care (01) ==
LOC: RADMAMWWP 09:19
PROVIDERS: ATTEND Family Medicine
DX: N64.4 Mastodynia (principal); R92.323 Mammographic fibroglandular density, bilateral breasts; Z78.0 Asymptomatic menopausal state; Z80.3 Family history of malignant neoplasm of breast
CPT/HCPCS: 77066; G0279; 77062

== ENCOUNTER → 2023-10-26 | Outpatient (CLI) | payer MEDICARE, OTHER ==
--- NOTE | 2023-10-27 14:15 | US ---
EXAMINATION TYPE: US pelvis complete transvag DATE OF EXAM: 10/26/2023 COMPARISON: NONE CLINICAL INDICATION: Female, 63 years old with history of N93.9 ABNORMAL BLEEDING; BORDER PATROL OFFICER x 4 weeks ago. No spotting currently. TECHNIQUE: Transvaginal (TV) and Transabdominal (TA) . Transabdominal sonographic images of the pel vis were acquired. Transvaginal sonographic images were medically necessary to better assess the fol lowing anatomy: Endometrium, ovaries Date of LMP: BORDER PATROL OFFICER, EXAM MEASUREMENTS: Uterus: 5.9 x 3.3 x 2.6 cm Endometrial Stripe: 0.1 cm 1. Uterus: Anteverted Heterogenous 2. Endometrium: wnl 3. Right Ovary: Obscured by overlying bowel gas 4. Left Ovary: Obscured by overlying bowel gas 5. Bilateral Adnexa: no free fluid 6. Posterior cul-de-sac: no free fluid IMPRESSION: 1. The uterus measures 5.9 cm in greatest dimension. The uterine myometrium is heterogeneous which is nonspecific. No discrete fibroid changes. Findings can occasionally be seen with adenomyosis. If cli nically warranted consider MRI.
== END | disposition home or self-care (01) ==
LOC: RADUSWWP 13:55
PROVIDERS: ATTEND Family Medicine
DX: N80.03 Adenomyosis of the uterus (principal); N93.9 Abnormal uterine and vaginal bleeding, unspecified
CPT/HCPCS: 76830; 76856

== ENCOUNTER 2023-11-30 09:36 | Day surgery (SDC) | payer MEDICARE, OTHER ==
[2023-11-30] MEDS: LACTATED RINGERS 1,000 ML IV SCH (11:04)
[2023-11-30] MEDS ORDERED: PROPOFOL 10 MG/ML 20 ML VIAL IV ONE (11:31)
--- NOTE | 2023-11-30 11:33 | P.GSHP ---
History of Present Illness H&P Date: 11/30/23 CHIEF COMPLAINT: GERD and dysphagia HISTORY OF PRESENT ILLNESS: The patient is a 63-year-old female who presents reports gastroesophageal reflux disease and dysphagia. Upper endoscopy was offered for further evaluation and management. PAST MEDICAL HISTORY: Please see list. PAST SURGICAL HISTORY: Please see list. MEDICATIONS: Please see list. ALLERGIES: Please see list. SOCIAL HISTORY: No illicit drug use FAMILY HISTORY: No reports of Crohn disease or ulcerative colitis. REVIEW OF ORGAN SYSTEMS: CONSTITUTIONAL: No reports of fevers or chills. GI: Denies any blood in stools or constipation. PHYSICAL EXAM: VITAL SIGNS: Stable GENERAL: Well-developed and pleasant in no acute distress. HEENT: No scleral icterus. Extraocular movements grossly intact. Moist buccal mucosa. NECK: Supple without lymphadenopathy. CHEST: Unlabored respirations. Equal bilateral excursions. CARDIOVASCULAR: Regular rate and rhythm. Distal 2+ pulses. ABDOMEN: Soft, nondistended. MUSCULOSKELETAL: No clubbing, cyanosis, or edema. ASSESSMENT: 1. Gastroesophageal reflux disease and dysphagia PLAN: 1. Recommend proceeding with an upper endoscopy Past Medical History Past Medical History: Asthma, Hyperlipidemia, Hypertension, Thyroid Disorder Additional Past Medical History / Comment(s): "Food gets caught", hypothyroid History of Any Multi-Drug Resistant Organisms: None Reported Past Surgical History: Bariatric Surgery, Cholecystectomy, Hernia Repair, Joint Replacement, Orthopedic Surgery, Tonsillectomy Additional Past Surgical History / Comment(s): Gastric bypass, revision of gastric bypass unsuccessful, total R/L knee arthroplasty, colonoscopy. Past Anesthesia/Blood Transfusion Reactions: No Reported Reaction Smoking Status: Never smoker, Second hand smoke exposure - Past Family History Father Family Medical History: Coronary Artery Disease (CAD), CVA/TIA Additional Family Medical History / Comment(s): Father is . Mother Family Medical History: Coronary Artery Disease (CAD), CVA/TIA Additional Family Medical History / Comment(s): Mother is . Medications and Allergies Home Medications Medication Instructions Recorded Confirmed Type Levothyroxine Sodium [Synthroid] 0.175 mcg PO QAM 09/09/17 11/30/23 History hydroCHLOROthiazide 25 mg PO QAM 09/09/17 11/30/23 History Atorvastatin [Lipitor] 20 mg PO HS #30 tab 01/09/22 11/30/23 Rx Albuterol Sulfate [Ventolin HFA] 1 - 2 puff INHALATION Q6H PRN 11/23/23 11/30/23 History Aspirin 325 mg PO QAM 11/23/23 11/30/23 History Multivit-Min/Folic Acid/Biotin 1 cap PO QAM 11/23/23 11/30/23 History [Hair, Skin and Nails Softgel] amLODIPine [Norvasc] 5 mg PO QAM 11/23/23 11/30/23 History Allergies Allergy/AdvReac Type Severity Reaction Status Date / Time banana Allergy Severe Anaphylaxis Verified 11/30/23 11:02 latex Allergy Severe Anaphylaxis Verified 11/30/23 11:02 Surgical - Exam Vital Signs Temp Pulse Resp BP Pulse Ox 97.5 F L 78 18 190/93 98 11/30/23 11:00 11/30/23 11:00 11/30/23 11:00 11/30/23 11:00 11/30/23 11:00
[2023-11-30 11:50] VITALS: TEMP 97.5
--- NOTE | 2023-11-30 12:04 | P.PCN ---
Date of Procedure: 11/30/23 Description of Procedure: PREOPERATIVE DIAGNOSES: 1. Dysphagia 2. History of gastric bypass. POSTOPERATIVE DIAGNOSES: 1. Dysphagia 2. History of gastric bypass. 3. Diaphragmatic hiatal hernia PROCEDURE PERFORMED: Esophagogastrojejunoscopy. SURGEON: Maribel Gutiérrez MD ANESTHESIA: MAC. INDICATIONS: The patient is a 64-year-old female with prior history of Marissa-en-Y gastric bypass reports dysphagia. Upper endoscopy was offered for further evaluation and management. DESCRIPTION: Patient was brought to the endoscopy suite and laid in the left lateral decubitus position. After adequate IV sedation, a bite block was placed. An Olympus gastroscope was passed along the posterior oropharynx down to the distal esophagus where the squamocolumnar junction was found at approximately 32 cm from the incisors. Hiatus at 37 cm. The anastomosis was found at 42 cm, consistent with approximately 4 cm gastric pouch. The scope was advanced 60 cm from the incisors. No evidence of foreign body was found. No evidence of active gastrojejunal ulcerations were encountered. The GI tract was desufflated. The patient tolerated the procedure well. FINDINGS: 1. No acute gastrojejunal ulceration. 2. No foreign body found along the anastomosis. 3. Gastric pouch 5 cm 4. Sliding diaphragmatic hiatal hernia, 5 cm PLAN: 1. May benefit from additional studies such as upper GI barium study. Plan - Discharge Summary Discharge Rx Participant: No New Discharge Prescriptions: No Action Levothyroxine Sodium [Synthroid] 0.175 mcg PO QAM hydroCHLOROthiazide 25 mg PO QAM Atorvastatin [Lipitor] 20 mg PO HS #30 tab Multivit-Min/Folic Acid/Biotin [Hair, Skin and Nails Softgel] 1 cap PO QAM amLODIPine [Norvasc] 5 mg PO QAM Aspirin 325 mg PO QAM Albuterol Sulfate [Ventolin HFA] 1 - 2 puff INHALATION Q6H PRN PRN Reason: Shortness Of Breath Discharge Medication List Levothyroxine Sodium [Synthroid] 0.175 mcg PO QAM 09/09/17 [History] hydroCHLOROthiazide 25 mg PO QAM 09/09/17 [History] Atorvastatin [Lipitor] 20 mg PO HS #30 tab 01/09/22 [Rx] Albuterol Sulfate [Ventolin HFA] 1 - 2 puff INHALATION Q6H PRN 11/23/23 [History] Aspirin 325 mg PO QAM 11/23/23 [History] Multivit-Min/Folic Acid/Biotin [Hair, Skin and Nails Softgel] 1 cap PO QAM 11/23/23 [History] amLODIPine [Norvasc] 5 mg PO QAM 11/23/23 [History]
[2023-11-30 12:44] VITALS: BP 174/94; PULSE 75; RESP 16
== END 2023-11-30 12:46 | disposition home or self-care (01) ==
LOC: ORWHC2ENDO 09:36
PROVIDERS: ATTEND Surgery Plastic and Reconstructive Surgery
DX: K44.9 Diaphragmatic hernia without obstruction or gangrene (principal); K21.9 Gastro-esophageal reflux disease without esophagitis; E03.9 Hypothyroidism, unspecified; E78.5 Hyperlipidemia, unspecified; I10 Essential (primary) hypertension; Z79.82 Long term (current) use of aspirin; Z79.890 Hormone replacement therapy; Z90.49 Acquired absence of other specified parts of digestive tract; Z91.040 Latex allergy status; Z98.84 Bariatric surgery status; Z98.890 Other specified postprocedural states; Z79.899 Other long term (current) drug therapy
CPT/HCPCS: 43235; J2704

== ENCOUNTER → 2023-12-07 | Outpatient (CLI) | payer MEDICARE, OTHER ==
[2023-12-07 14:38] VITALS: BP 143/90; PULSE 102; RESP 16; BMI 46.1
--- NOTE | 2023-12-07 15:24 | P.HPBAR ---
Bariatric H&P - History & Physicial H&P Date: 12/07/23 History & Physicial: Visit/CC: F/U Patient initial contact: Initial weight: 126.552 kg Initial weight in pounds: 279.00 Height: 4 ft 10 in Initial BMI: 58.3 Last weight: Current weight: 100.244 kg Current weight in pounds: 221.00 Current BMI: 46.1 [place] body weight (based on NIH guidelines): 40.823 kg Excess body weight loss: 30.6% The patient is a 63 year-old F who presents for Bariatric Assessment. Highest weight 287 pounds. She had the bypass in 2001 when [facility] . Has large hiatal hernia. Needs esophagram. Needs EKG and labs work. She has chest pain. Needs cardiology check up. Bypass surgeon was Dr. Larsen. Past Medical History Past Medical History: Asthma, Hyperlipidemia, Hypertension, Thyroid Disorder Additional Past Medical History / Comment(s): "Food gets caught", hypothyroid History of Any Multi-Drug Resistant Organisms: None Reported Past Surgical History: Bariatric Surgery, Cholecystectomy, Hernia Repair, Joint Replacement, Orthopedic Surgery, Tonsillectomy Additional Past Surgical History / Comment(s): Gastric bypass, revision of gastric bypass unsuccessful, total R/L knee arthroplasty, colonoscopy. Past Anesthesia/Blood Transfusion Reactions: No Reported Reaction Past Psychological History: No Psychological Hx Reported Additional Psychological History / Comment(s): Pt resides with her spouse and grandkids. She is independent. Smoking Status: Never smoker, Second hand smoke exposure Past Alcohol Use History: None Reported Additional Past Alcohol Use History / Comment(s): 3 drinks/ week Past Drug Use History: None Reported - Past Family History Father Family Medical History: Coronary Artery Disease (CAD), CVA/TIA Additional Family Medical History / Comment(s): Father is . Mother Family Medical History: Coronary Artery Disease (CAD), CVA/TIA Additional Family Medical History / Comment(s): Mother is . Surgical - Exam Vital Signs Pulse Resp BP 102 H 16 143/90 12/07/23 14:35 12/07/23 14:35 12/07/23 14:35 Bariatric Checklist Checklist: Plan: Checklist: EGD: 1. Hiatal hernia: 2. H. Pylori: HgbA1c: Vitamin D: Smoking: Never smoker Primary care physician referral: Dr Mcfarlane Psychiatry clearance: Cardiology clearance: Sleep study: Diet journal: VTE risk score: VTE risk level: Rehab needs at discharge:
[2023-12-07 16:29] LABS: Partial Thromboplastin Time 23.5 sec (22.0-30.0); Prothrombin Time 11.3 sec (10.0-12.5)
[2023-12-07 18:29] LABS: HCT 32.3 % (37.2-46.3); HGB 9.9 g/dL (12.0-15.0); MCH 24.6 pg (27.0-32.0); MCHC 30.7 g/dL (32.0-37.0); MCV 80.3 FL (80.0-97.0); Mean Platelet Volume 8.7 FL (9.5-12.2); NRBC Per 100 WBC 0 X 10*3/uL (0.00-0.01); Platelet Count 242 X 10*3/uL (140-440); RBC 4.02 X 10*6/uL (4.10-5.20); RDW 17.7 % (11.5-14.5); WBC 4.69 X 10*3/uL (4.50-10.00)
[2023-12-07 21:58] LABS: Prealbumin 22.9 mg/dL (18.0-42.0)
[2023-12-07 22:24] LABS: % Iron Saturation 5.94 (12.00-45.00); ALT 21 U/L (8-44); AST 23 U/L (13-35); Albumin 4.3 g/dL (3.8-4.9); Albumin/Globulin Ratio 1.79 Ratio (1.60-3.17); Alkaline Phosphatase 95 U/L (41-126); BUN/Creat Ratio 14.38 Ratio (12.00-20.00); Blood Urea Nitrogen 11.5 mg/dL (9.0-27.0); Calcium 9.3 mg/dL (8.7-10.3); Carbon Dioxide 25.2 mmol/L (21.6-31.8); Chloride 105 mmol/L (96-109); Chol/HDL Ratio 2.27 Ratio; Ferritin 9.5 ng/mL (10.0-291.0); Globulin 2.4 g/dL (1.6-3.3); Glucose 94 mg/dL (70-110); Iron 32 UG/DL (50-170); LDL Cholesterol,Calculated 134.9 mg/dL (0.0-131.0); Magnesium 1.9 mg/dL (1.5-2.4); Phosphorus 2.7 mg/dL (2.4-5.1); Potassium 3.9 mmol/L (3.5-5.5); Sodium 142 mmol/L (135-145); Total Bilirubin 0.3 mg/dL (0.3-1.2); Total Iron Binding Capacity 539 UG/DL (228-460); Total Protein 6.7 g/dL (6.2-8.2); VLDL Calculation 19.08 mg/dL (5.00-40.00)
[2023-12-07 22:37] LABS: Vitamin B12 <150.0 pg/mL (200.0-944.0)
[2023-12-08 14:58] LABS: Zinc, Serum 68 ug/dL (60-130)
[2023-12-09 10:09] LABS: Vitamin A 53 ug/dL (38-106)
[2023-12-09 10:17] LABS: Vit B1(Thiamine) 46 ug/L (38-122)
[2023-12-11 08:22] LABS: Selenium 120 mcg/L (63-160)
[2023-12-13 06:25] LABS: Anabasine Urine <2.0 ng/mL (<2.0)
== END ==
LOC: BARWHC3 14:15
PROVIDERS: ATTEND Surgery Plastic and Reconstructive Surgery
DX: E66.01 Morbid (severe) obesity due to excess calories (principal); E89.1 Postprocedural hypoinsulinemia; D50.8 Other iron deficiency anemias; K90.89 Other intestinal malabsorption; E55.9 Vitamin D deficiency, unspecified; K74.1 Hepatic sclerosis; N19 Unspecified kidney failure; R94.31 Abnormal electrocardiogram [ECG] [EKG]; K50.90 Crohn's disease, unspecified, without complications; Z98.84 Bariatric surgery status; Z90.3 Acquired absence of stomach [part of]; Z91.040 Latex allergy status; Z91.018 Allergy to other foods; Z68.42 Body mass index [BMI] 45.0-49.9, adult; Z77.22 Contact with and (suspected) exposure to environmental tobacco smoke (acute) (chronic)
CPT/HCPCS: 84255; 84134; 84425; 80061; 80053; 82607; 82728; 82525; 82746; 83540; 83550; 83735; 84100; 84443; 84590; 84630; 85027; 85610; 85730; 82306; 83970; 83036; 80307; 93005; G0480; G0463; 80323; 99211

== ENCOUNTER 2024-06-06 08:24 | Day surgery (SDC) | payer MEDICARE, OTHER ==
[2024-06-06] MEDS ORDERED: LIDOCAINE 1% (10MG/ML) FOR IV START INTRADERMA PRN (08:38)
[2024-06-06] MEDS ORDERED: LACTATED RINGERS 1,000 ML IV SCH (08:38)
[2024-06-06] MEDS ORDERED: droPERidol 5 MG/2 ML VIAL IVP ONE (08:38)
[2024-06-06] MEDS: ONDANSETRON 4 MG/2 ML VIAL IVP ONE ×2 (09:17→14:38)
[2024-06-06] MEDS: ACETAMINOPHEN TAB 500 MG TAB PO PRN (09:17)
[2024-06-06] MEDS: DEXAMETHASONE SOD PHOSPHATE 4 MG/ML 1 ML VIAL IV ONE (09:18)
[2024-06-06] MEDS: FAMOTIDINE 20 MG/2 ML VIAL IV STA (09:19)
[2024-06-06 09:21] LABS: HCT 38.6 % (34.0-46.0); MCH 30.3 pg (25.0-35.0); MCHC 33.7 g/dL (31.0-37.0); MCV 89.9 fL (80.0-100.0); Mean Platelet Volume 6.8; Platelet Count 222 k/uL (150-450); RDW 13.8 % (11.5-15.5); WBC 3.5 k/uL (3.8-10.6)
[2024-06-06 09:33] LABS: African American GFR (CKD) >90 (>60 ml/min/1.73 sqM); Anion Gap 7 mmol/L; Blood Urea Nitrogen 9 mg/dL (7-17); Calcium 9.1 mg/dL (8.4-10.2); Carbon Dioxide 29 mmol/L (22-30); Chloride 103 mmol/L (98-107); Glucose 83 mg/dL (74-99); Non-African American GFR(CKD) >90 (>60 ml/min/1.73 sqM); Potassium 4.2 mmol/L (3.5-5.1); Sodium 139 mmol/L (137-145)
[2024-06-06] MEDS: MIDAZOLAM 2 MG/2 ML VIAL IV ONE (09:35)
[2024-06-06] MEDS: HEPARIN SODIUM,PORCINE 5,000 UNIT/ML 1 ML VIAL SQ PRN (09:46)
--- NOTE | 2024-06-06 09:48 | P.ANPRN ---
Procedure Note - Anesthesia - Nerve Block Performed Bilateral Erector Spinae Single Time Out Performed: Yes Date of Procedure: 06/06/24 Procedure Start Time: :34 Procedure Stop Time: :39 Location of Patient: PreOp Indication: Acute Post-Operative Pain, Analgesia, Requested by Surgeon Sedation Type: Sedate with meaningful contact maintained Preparation: Sterile Prep Position: Prone Catheter: None Needle Types: Pajunk Needle Gauge: 21 Ultrasound used to visualize needle placement: Yes Ultrasound used to observe medication spread: Yes Injectate: 0.5% Ropivacaine (see comment for volume) (Ropiv 20ml+Decadron 4mg---Bilaterally. T7-Needle level.l.) Blood Aspirated: No Pain Paresthesia on Injection Noted: No Resistance on Injection: Normal Image Stored and Saved: Yes Events: Uneventful and Well Tolerated
[2024-06-06] MEDS: IV FLUID CONTINUATION 1,000 ML IV ONE ×3 (09:52→13:30)
[2024-06-06] MEDS ORDERED: MIDAZOLAM 2 MG/2 ML VIAL ONE (10:18)
[2024-06-06] MEDS ORDERED: ROCURONIUM 10 MG/ML (5 ML VIAL) IV ONE (10:18)
[2024-06-06] MEDS ORDERED: NEOSTIGMINE 1 MG/ML 10 ML VIAL ONE (10:18)
[2024-06-06] MEDS ORDERED: LIDOCAINE 4% LTA KIT (4 ML) TOPICAL ONE (10:18)
[2024-06-06] MEDS ORDERED: fentaNYL (PF) 50 MCG/ML 2 ML AMP ONE (10:18)
[2024-06-06] MEDS ORDERED: LIDOCAINE 1% INJ 10MG/ML (20 ML MDV) ONE (10:18)
[2024-06-06] MEDS ORDERED: DEXAMETHASONE SOD PHOSPHATE 4 MG/ML 1 ML VIAL ONE (10:18)
[2024-06-06] MEDS ORDERED: SUCCINYLCHOLINE CHLORIDE 200 MG/10 ML VIAL IV ONE (10:18)
[2024-06-06] MEDS ORDERED: KETOROLAC 15 MG/ML 1 ML VIAL ONE (10:18)
[2024-06-06] MEDS ORDERED: ROPIVACAINE 5 MG/ML 30 ML VIAL ONE (10:18)
[2024-06-06] MEDS ORDERED: PROPOFOL 10 MG/ML 20 ML VIAL IV ONE (10:18)
[2024-06-06] MEDS ORDERED: GLYCOPYRROLATE 0.2 MG/ML 2 ML VIAL ONE (10:18)
[2024-06-06] MEDS: LIDOCAINE 1%-EPI 1:100,000 20 ML VIAL SQ ONE (10:40)
[2024-06-06] MEDS: HYDROmorphone 0.5 MG/0.5 ML SYRINGE IVP PRN (11:03)
[2024-06-06 13:04] VITALS: TEMP 98
[2024-06-06] MEDS: IPRATROPIUM-ALBUTEROL 3 ML NEB INHALATION STA (14:05)
[2024-06-06 15:18] VITALS: BP 167/87; PULSE 107; RESP 20
--- NOTE | 2024-06-13 08:23 | P.OP ---
Date of Procedure: 06/06/24 Preoperative Diagnosis: Incisional hernia 10 cm Postoperative Diagnosis: Incisional hernia 10 cm Procedure(s) Performed: Open repair of incisional hernia Removal of free-floating mesh Anesthesia: FRANKLYN Surgeon: Ortiz Varma Estimated Blood Loss (ml): 5 Pathology: none sent Condition: stable Disposition: PACU Description of Procedure: Patient was placed on the operative table in the supine position. She received general endotracheal anesthesia. Her abdomen was prepped and draped you sterile fashion. The skin was incised the midline. Use electrocautery and sharp section subcutaneous tissues were divided. The incisional hernia measured approximately 10 cm in length. A portion of the mesh was seen free-floating in the subtendinous fat. This was dissected free and excised with a portion of the hernia sac. The fascial defect was then closed using [id number] 0 Ethibond suture. There is no bleeding seen. The skin was then closed with hira. Patient tolerated well. She was sent to recovery in stable condition.
== END 2024-06-06 16:02 | disposition home or self-care (01) ==
LOC: OR 08:24
PROVIDERS: ATTEND Surgery
DX: K43.2 Incisional hernia without obstruction or gangrene (principal); I10 Essential (primary) hypertension; E78.5 Hyperlipidemia, unspecified; J45.909 Unspecified asthma, uncomplicated; E07.9 Disorder of thyroid, unspecified; K21.9 Gastro-esophageal reflux disease without esophagitis; F10.99 Alcohol use, unspecified with unspecified alcohol-induced disorder; Z89.521 Acquired absence of right knee; Z89.522 Acquired absence of left knee; Z90.3 Acquired absence of stomach [part of]; Z91.040 Latex allergy status; Z79.02 Long term (current) use of antithrombotics/antiplatelets; Z79.899 Other long term (current) drug therapy; Z79.890 Hormone replacement therapy
CPT/HCPCS: 64999; 80048; 85027; 88302; 49593; J2250; J0330; J1644; J1100; J2710; J0690; J2405; J2003; J3010; J3490; J2795; J1885; J2704; J1171; J1596

== ENCOUNTER 2024-11-15 19:06 | Emergency (ER) | payer MEDICARE ==
--- NOTE | 2024-11-15 20:05 | ED ---
General Adult HPI - General Source: police, EMS Mode of arrival: EMS Limitations: no limitations <Iman - Last Filed: 11/15/24 22:52> <Nakul Gifford - Last Filed: 11/16/24 01:56> - General Chief complaint: Alcohol Stated complaint: Mental issues Time Seen by Provider: 11/15/24 19:20 - History of Present Illness Initial comments: Patient is 64-year-old female past medical history of alcoholism presenting via PD custody today for alcohol intoxication and agitation and suicidal comments. Patient's called into the home when patient had left texted him and their daughter that she was "going to see her son" who has been for some time. She told her that she took a bunch of Benadryl. Upon EMS arrival patient had Benadryl bottles near however they were not empty. Patient was angr y and agitated with PD. She is being petitioned for her suicidal comments. On my assessment patient states she has had 4 strong drinks today, she is tearful, she states that she did not overdose on Benadryl or took any medications today. She denies SI/HI. (Iman Jasmine) - Related Data Home Medications Medication Instructions Recorded Confirmed Levothyroxine Sodium [Synthroid] 175 mcg PO QAM 09/09/17 06/01/24 hydroCHLOROthiazide 25 mg PO QAM 09/09/17 06/01/24 Albuterol Sulfate [Ventolin HFA] 1 - 2 puff INHALATION Q6H PRN 11/23/23 06/01/24 amLODIPine [Norvasc] 5 mg PO QAM 11/23/23 06/01/24 Ergocalciferol [Vitamin D2 (1250 50,000 unit PO WEEKLY 12/26/23 06/01/24 Mcg = 21561 Iu)] Previous Rx's Medication Instructions Recorded Atorvastatin [Lipitor] 20 mg PO HS #30 tab 01/09/22 Omeprazole [PriLOSEC] 40 mg PO DAILY #14 cap 11/30/23 Acetaminophen Tab [Tylenol] 650 mg PO Q6H #30 tab 06/06/24 Docusate [Colace] 100 mg PO BID #20 capsule 06/06/24 Ibuprofen [Motrin] 600 mg PO Q6HR PRN #40 tab 06/06/24 oxyCODONE HCL [OxyIR] 5 mg PO Q6H PRN 3 Days #10 tab 06/06/24 Allergies Allergy/AdvReac Type Severity Reaction Status Date / Time banana Allergy Severe Anaphylaxis Verified 06/06/24 08:43 latex Allergy Severe Anaphylaxis Verified 06/06/24 08:43 Review of Systems ROS Other: All systems not noted in ROS Statement are negative. <Iman Jasmine - Last Filed: 11/15/24 22:52> ROS Other: All systems not noted in ROS Statement are negative. <Nakul Gifford - Last Filed: 11/16/24 01:56> ROS Statement: Those systems with pertinent positive or pertinent negative responses have been documented in the HPI. Past Medical History Past Medical History: Asthma, GERD/Reflux, Hyperlipidemia, Hypertension, Thyroid Disorder Additional Past Medical History / Comment(s): hypothyroid History of Any Multi-Drug Resistant Organisms: None Reported Past Surgical History: Bariatric Surgery, Cholecystectomy, Hernia Repair, Joint Replacement, Orthopedic Surgery, Tonsillectomy Additional Past Surgical History / Comment(s): Gastric bypass, revision of gastric bypass unsuccessful, total R/L knee arthroplasty, colonoscopy, EGD Past Anesthesia/Blood Transfusion Reactions: No Reported Reaction Past Psychological History: No Psychological Hx Reported Smoking Status: Never smoker - Past Family History Father Family Medical History: Coronary Artery Disease (CAD), CVA/TIA Additional Family Medical History / Comment(s): Father is . Mother Family Medical History: Coronary Artery Disease (CAD), CVA/TIA Additional Family Medical History / Comment(s): Mother is . <Iman Jasmine - Last Filed: 11/15/24 22:52> General Exam Limitations: no limitations <Iman Jasmine - Last Filed: 11/15/24 22:52> Course Vital Signs 11/15/24 11/15/24 11/16/24 20:15 21:07 01:10 Temperature 98.6 F Pulse Rate 89 89 99 Respiratory 19 19 18 Rate Blood Pressure 157/92 153/96 161/88 O2 Sat by Pulse 95 98 Oximetry EKG Findings - EKG Comments: EKG Findings:: Sinus rhythm, rate 81 bpm intervals within acceptable limits, borderline left axis deviation, no ischemic changes no ST elevations or depressions, no arrhythmia <Iman Jasmine - Last Filed: 11/15/24 22:52> Procedures - Restraint - Face to Face Restraint Occurrence 1 Patient's Immediate Situation: Endangers self safety, Endangers staff safety Patient's Reaction to the Intervention: Uncooperative, Restless, Other (see comment) (tearful, regretful) Patient's Medical & Behavioral Condition: Awake, Alert, Follows directions, Agitated Need to Continue or Terminate Restraint or Seclusion: Terminate Face to Face Eval of Restraint Date: 11/15/24 Face to Face Eval of Restraint Time: 19:25 <Iman Jasmine - Last Filed: 11/15/24 22:52> - Restraint - Face to Face Restraint Occurrence 1 Patient's Medical & Behavioral Condition - Comment: Alcohol intoxication with suicidal comments (Iman Jasmine) Medical Decision Making - Lab Data Result diagrams: 11/15/24 20:11 11/15/24 20:11 <Iman Jasmine - Last Filed: 11/15/24 22:52> - Lab Data Result diagrams: 11/15/24 20:11 11/15/24 20:11 <Nakul Gifford - Last Filed: 11/16/24 01:56> - Medical Decision Making Was pt. sent in by a medical professional or institution (, [facility], [facility], urgent care, hospital, or longterm...) When possible be specific @ -[No] Did you speak to anyone other than the patient for history (EMS, parent, family, police, friend...)? What history was obtained from this source @I spoke with patient's who states that the patient has been been drinking lately, she has been dealing with a lot of stress, they take care of their 3 granddaughters who was father who was the patient's son, committed suicide 15 years ago and whose mother also committed suicide in 2020. Patient's feels that the weather today may have triggered the patient's comments, because this weather was similar to when her son . She was also petition by police for making comments to her stating that she was going to take a bunch of Benadryl to "go see Reddy" (her son). Did you review nursing and triage notes (agree or disagree)? Why? @ -[I reviewed and agree with nursing and triage notes] Were old charts reviewed (outside hosp., previous admission, EMS record, old EKG, old radiological studies, urgent care reports/EKG's, longterm records)? Report findings @ -[Medical records reviewed] Differential Diagnosis (chest pain, altered mental status, abdominal pain women, abdominal pain men, vaginal bleeding, weakness, fever, dyspnea, syncope, headache, dizziness, GI bleed, back pain, seizure, CVA, palpatations, mental health, musculoskeletal)? @Differential Mental Health Depression, anxiety, bipolar, psychosis, schizophrenia, borderline personality, situational depression, adjustment disorder, behavioral disorder, brain tumor, malingering, substance abuse, encephalopathy, medication reaction, dementia, hypothyroidism, degenerative neurologic disorder, lupus.... This is not meant to be all-inclusive list EKG interpreted by me (3pts min.). @ -[As above] X-rays interpreted by me (1pt min.). @ -[None done] CT interpreted by me (1pt min.). @ -[None done] U/S interpreted by me (1pt. min.). @ -[None done] What testing was considered but not performed or refused? (CT, X-rays, U/S, labs)? Why? @ -[None] What meds were considered but not given or refused? Why? @ -[None] Did you discuss the management of the patient with other professionals (professionals i.e. , PA, SP[facility] GR[facility]ER, lab, RT, psych nurse, social science teacher, bead worker sewing, teacher, chief marketing officer, case investigator)? Give summary @ -[No] Was smoking cessation discussed for >3mins.? @ -[No] Was critical care preformed (if so, how long)? @ -[No] Were there social determinants of health that impacted care today? How? ( Homelessness, low income, unemployed, alcoholism, drug addiction, transportation, low edu. Level, literacy, decrease access to med. care, long term, rehab)? @ -[No] Was there de-escalation of care discussed even if they declined (Discuss DNR or withdrawal of care, Hospice)? @ -[No] What co-morbidities impacted this encounter? (DM, HTN, Smoking, COPD, CAD, Cancer, CVA, ARF, Chemo, Hep., AIDS, mental health diagnosis, sleep apnea, morbid obesity)? @ -[None] Was patient admitted / discharged? Hospital course, mention meds given and route, prescriptions, significant lab abnormalities, going to OR and other pertinent info. @ -[hospital course] patient is a 64-year-old female past medical history of a lcoholism presented today for alcohol intoxication with suicidal comments. She presents in the company of police, and was handcuffed to the bed on arrival due to agitation and combative behavior. Patient petition by police for comments made to her . Restraints were placed immediately upon arrival, RN alerted me to this and patient was immediately assessed by myself. She is shouting at staff, tearful and angry however is redirectable. She is visibly intoxicated. She does now deny suicidal comments and states she did not take any medications to try to harm herself or overdose on any medications. She does endorse alcohol use today. Discussed with the patient plan for comprehensive labs and EKG given the statements she made regarding Benadryl though her exam does not appear consistent with Benadryl overdose or anticholinergic toxicity. Patient agreeable plan of care. Alcohol breathalyzer 0.193 on arrival. She will be medically cleared at 1:30 AM for EPS evaluation. On reassessment pt appears much more sober, is out of restraints and is conversant. She is still angry with her but is cooperative. 11:00 PM-patient was signed out to oncoming physician Dr. Gifford pending EPS evaluation Undiagnosed new problem with uncertain prognosis? @ -[No] Drug Therapy requiring intensive monitoring for toxicity (Heparin, Nitro, Insulin, Cardizem)? @ -[No] Were any procedures done? @ -[No] Diagnosis/symptom? @ alcohol intoxication Acute, or Chronic, or Acute on Chronic? acute Uncomplicated (without systemic symptoms) or Complicated (systemic symptoms)? @ -[default] Side effects of treatment? @ -[No] Exacerbation, Progression, or Severe Exacerbation? @ -[No] Poses a threat to life or bodily function? How? (Chest pain, [place], [place], pneumonia, PE, COPD, DKA, ARF, appy, cholecystitis, CVA, Diverticulitis, Homicidal, Suicidal, threat to staff... and all critical care pts) @ -[No] (Iman Jasmine) - Lab Data Lab Results 11/15/24 11/15/24 11/15/24 Range/Units 20:11 20:11 20:11 WBC 4.99 (4.50-10.00) 10*3/uL RBC 4.17 (4.10-5.20) 10*6/uL Hgb 12.9 (12.0-15.0) g/dL Hct 37.4 (37.2-46.3) % MCV 89.7 (80.0-97.0) fL MCH 30.9 (27.0-32.0) pg MCHC 34.5 (32.0-37.0) g/dL Plt Count 260 (140-440) 10*3/uL MPV 8.3 L (9.5-12.2) fL Immature Gran % (Auto) 0.4 % Neutrophils % 31.1 % Lymphocytes % 58.1 % Monocytes % 7.2 % Eosinophils % 2.4 % Basophils % 0.8 % Immature Gran # 0.02 (0.00-0.04) 10*3/uL Neutrophils # 1.55 L (1.80-7.70) 10*3/uL Lymphocytes # 2.90 (0.90-5.00) 10*3/uL Monocytes # 0.36 (0.20-1.00) 10*3/uL Eosinophils # 0.12 (0.04-0.35) 10*3/uL Basophils # 0.04 (0.00-0.10) 10*3/uL PT 11.4 (10.0-12.5) sec INR 1.0 (<1.2) APTT 21.0 L (22.0-30.0) sec Sodium 143 (137-145) mmol/L Potassium 4.0 (3.5-5.1) mmol/L Chloride 104 (98-107) mmol/L Carbon Dioxide 26 (22-30) mmol/L Anion Gap 13 mmol/L BUN 15 (7-17) mg/dL Creatinine 0.70 (0.52-1.04) mg/dL Est GFR (CKD-EPI)AfAm >90 (>60 ml/min/1.73 sqM) Est GFR (CKD-EPI)NonAf >90 (>60 ml/min/1.73 sqM) Glucose 96 (74-99) mg/dL Calcium 9.4 (8.4-10.2) mg/dL Magnesium 1.8 (1.6-2.3) mg/dL Total Bilirubin 0.3 (0.2-1.3) mg/dL AST 30 (14-36) U/L ALT 40 H (4-34) U/L Alkaline Phosphatase 83 (38-126) U/L Total Protein 6.7 (6.3-8.2) g/dL Albumin 4.1 (3.5-5.0) g/dL Salicylates <1.0 mg/dL Urine Opiates Screen (NotDetected) Ur Oxycodone Screen (NotDetected) Urine Methadone Screen (NotDetected) Acetaminophen <10.0 ug/mL Ur Barbiturates Screen (NotDetected) U Tricyclic Antidepress (NotDetected) Ur Phencyclidine Scrn (NotDetected) Ur Amphetamines Screen (NotDetected) U Methamphetamines Scrn (NotDetected) U Benzodiazepines Scrn (NotDetected) Urine Cocaine Screen (NotDetected) U Marijuana (THC) Screen (NotDetected) 11/15/24 Range/Units 21:20 WBC (4.50-10.00) 10*3/uL RBC (4.10-5.20) 10*6/uL Hgb (12.0-15.0) g/dL Hct (37.2-46.3) % MCV (80.0-97.0) fL MCH (27.0-32.0) pg MCHC (32.0-37.0) g/dL Plt Count (140-440) 10*3/uL MPV (9.5-12.2) fL Immature Gran % (Auto) % Neutrophils % % Lymphocytes % % Monocytes % % Eosinophils % % Basophils % % Immature Gran # (0.00-0.04) 10*3/uL Neutrophils # (1.80-7.70) 10*3/uL Lymphocytes # (0.90-5.00) 10*3/uL Monocytes # (0.20-1.00) 10*3/uL Eosinophils # (0.04-0.35) 10*3/uL Basophils # (0.00-0.10) 10*3/uL PT (10.0-12.5) sec INR (<1.2) APTT (22.0-30.0) sec Sodium (137-145) mmol/L Potassium (3.5-5.1) mmol/L Chloride (98-107) mmol/L Carbon Dioxide (22-30) mmol/L Anion Gap mmol/L BUN (7-17) mg/dL Creatinine (0.52-1.04) mg/dL Est GFR (CKD-EPI)AfAm (>60 ml/min/1.73 sqM) Est GFR (CKD-EPI)NonAf (>60 ml/min/1.73 sqM) Glucose (74-99) mg/dL Calcium (8.4-10.2) mg/dL Magnesium (1.6-2.3) mg/dL Total Bilirubin (0.2-1.3) mg/dL AST (14-36) U/L ALT (4-34) U/L Alkaline Phosphatase (38-126) U/L Total Protein (6.3-8.2) g/dL Albumin (3.5-5.0) g/dL Salicylates mg/dL Urine Opiates Screen Not Detected (NotDetected) Ur Oxycodone Screen Not Detected (NotDetected) Urine Methadone Screen Not Detected (NotDetected) Acetaminophen ug/mL Ur Barbiturates Screen Not Detected (NotDetected) U Tricyclic Antidepress Not Detected (NotDetected) Ur Phencyclidine Scrn Not Detected (NotDetected) Ur Amphetamines Screen Not Detected (NotDetected) U Methamphetamines Scrn Not Detected (NotDetected) U Benzodiazepines Scrn Not Detected (NotDetected) Urine Cocaine Screen Not Detected (NotDetected) U Marijuana (THC) Screen Not Detected (NotDetected) Disposition <Iman Jasmine - Last Filed: 11/15/24 22:52> Is patient prescribed a controlled substance at d/c from ED?: No <Nakul Gifford - Last Filed: 11/16/24 01:56> Clinical Impression: Alcoholic intoxication, Mood disorder Disposition: HOME SELF-CARE Condition: Good Instructions (If sedation given, give patient instructions): Alcohol Int oxication (ED), Mood Disorders (ED) Referrals: None,Stated [REFERRING] - 1-2 days
[2024-11-15 20:14] LABS: Basophils # (A) 0.04 10*3/uL (0.00-0.10); Basophils % (A) 0.8 %; Eosinophils # (A) 0.12 10*3/uL (0.04-0.35); Eosinophils % (A) 2.4 %; HCT 37.4 % (37.2-46.3); HGB 12.9 g/dL (12.0-15.0); Lymphocytes % (A) 58.1 %; MCH 30.9 pg (27.0-32.0); MCHC 34.5 g/dL (32.0-37.0); MCV 89.7 fL (80.0-97.0); Mean Platelet Volume 8.3 fL (9.5-12.2); Monocytes # (A) 0.36 10*3/uL (0.20-1.00); Monocytes % (A) 7.2 %; Neutrophils # (A) 1.55 10*3/uL (1.80-7.70); Neutrophils % (A) 31.1 %; Platelet Count 260 10*3/uL (140-440); RBC 4.17 10*6/uL (4.10-5.20); RDW 13.7 % (11.5-14.5); WBC 4.99 10*3/uL (4.50-10.00)
[2024-11-15 20:20] VITALS: TEMP 98.6
[2024-11-15 20:20] LABS: ALT 40 U/L (4-34); AST 30 U/L (14-36); Acetaminophen <10.0 ug/mL; African American GFR (CKD) >90 (>60 ml/min/1.73 sqM); Albumin 4.1 g/dL (3.5-5.0); Alkaline Phosphatase 83 U/L (38-126); Anion Gap 13 mmol/L; Blood Urea Nitrogen 15 mg/dL (7-17); Calcium 9.4 mg/dL (8.4-10.2); Carbon Dioxide 26 mmol/L (22-30); Chloride 104 mmol/L (98-107); Glucose 96 mg/dL (74-99); Magnesium 1.8 mg/dL (1.6-2.3); Non-African American GFR(CKD) >90 (>60 ml/min/1.73 sqM); Salicylate <1.0 mg/dL; Sodium 143 mmol/L (137-145); Total Bilirubin 0.3 mg/dL (0.2-1.3); Total Protein 6.7 g/dL (6.3-8.2)
[2024-11-15 20:31] LABS: Prothrombin Time 11.4 sec (10.0-12.5)
[2024-11-15] MEDS: FOLIC ACID 1 MG TAB PO STA (21:01)
[2024-11-15] MEDS: MULTIVITAMINS, THERA 1 EACH TAB PO STA (21:01)
[2024-11-15] MEDS: THIAMINE 100 MG/ML 2 ML VIAL IM STA (21:02)
[2024-11-15 22:14] LABS: Amphetamine Screen,Urine Not Detected (NotDetected); Barbiturate Screen,Urine Not Detected (NotDetected); Benzodiazepines Screen,Urine Not Detected (NotDetected); Cocaine Screen,Urine Not Detected (NotDetected); Methadone Screen, Urine Not Detected (NotDetected); Opiate Screen,Urine Not Detected (NotDetected); Oxycodone Screen, Urine Not Detected (NotDetected); Phencyclidine Screen,Urine Not Detected (NotDetected); Tricyclic Antidepressant,Urine Not Detected (NotDetected); Urn Cannabinoid Scrn Not Detected (NotDetected)
[2024-11-16 01:17] VITALS: RESP 18
[2024-11-16 01:59] VITALS: BP 161/86; PULSE 86
== END 2024-11-16 02:08 | disposition home or self-care (01) ==
LOC: EC 19:06
DX: F10.129 Alcohol abuse with intoxication, unspecified (principal); F39 Unspecified mood [affective] disorder; Z91.040 Latex allergy status; Z91.018 Allergy to other foods
CPT/HCPCS: 82075; 36415; 93005; 80053; 83735; 85025; 85610; 85730; 80306; 80143; 80179; 99285; 96372; J3411

== ENCOUNTER 2025-01-24 10:27 | Observation (INO) | payer MEDICARE, OTHER ==
[2025-01-24] MEDS: HEPARIN SODIUM,PORCINE 10,000 UNIT in SODIUM CHLORIDE 0.9% 1,000 ML IRRIGATION ONE (11:03)
[2025-01-24] MEDS: SODIUM CHLORIDE 0.9% 1,000 ML IV ONE (11:03)
[2025-01-24] MEDS: HEPARIN SODIUM,PORCINE (1 ML) 2,500 UNIT in SODIUM CHLORIDE 0.9% 250 ML IRRIGATION ONE (11:03)
[2025-01-24] MEDS: MIDAZOLAM 2 MG/2 ML VIAL IVP ONE (11:08)
[2025-01-24] MEDS: fentaNYL (PF) 50 MCG/ML 2 ML AMP IVP ONE (11:08)
[2025-01-24] MEDS: HEPARIN SODIUM 1,000 UN/ML (10ML VL) IVP ONE (11:13)
[2025-01-24] MEDS: LIDOCAINE 1% INJ 10MG/ML (20 ML MDV) SQ ONE (11:32)
[2025-01-24] MEDS: VERAPAMIL SYRINGE (5 MG/10 ML) INTRAARTER ONE (11:34)
[2025-01-24] MEDS: IOPAMIDOL-370 100ML BTL INJ ONE (11:47)
[2025-01-24] MEDS ORDERED: ALPRAZolam 0.25 MG TAB PO PRN (12:50)
[2025-01-24] MEDS ORDERED: NITROGLYCERIN SL TABS 0.4 MG TAB SUBLINGUAL PRN (12:50)
[2025-01-24] MEDS ORDERED: ALPRAZolam 0.5 MG TAB PO PRN (12:50)
[2025-01-24] MEDS: ASPIRIN 325 MG TAB PO STA (13:04)
[2025-01-24] MEDS: SODIUM CHLORIDE 0.9% 1,000 ML in EMPTY BAG 1 BAG IV SCH (13:06)
[2025-01-24] MEDS: ONDANSETRON 4 MG/2 ML VIAL IVP PRN (13:08)
[2025-01-24 13:16] VITALS: RESP 16
[2025-01-24] MEDS: amLODIPine 10 MG TAB PO SCH (13:36)
[2025-01-24] MEDS: LOSARTAN 25 MG TAB PO SCH (13:36)
[2025-01-24 15:59] VITALS: BP 158/75; PULSE 86; TEMP 98
[2025-01-25] MEDS ORDERED: HEPARIN SODIUM,PORCINE (1 ML) 2,500 UNIT in SODIUM CHLORIDE 0.9% 250 ML IRRIGATION PRN (07:00)
[2025-01-25] MEDS ORDERED: HEPARIN SODIUM,PORCINE 10,000 UNIT in SODIUM CHLORIDE 0.9% 1,000 ML IRRIGATION PRN (07:00)
--- NOTE | 2025-01-25 13:38 | P.CARDCATH ---
Description of Procedure: PROCEDURES PERFORMED: Left coronary angiography, ultrasound guided arterial access, iFR LAD INDICATION: Abnormal stress test CONSENT:I have discussed the risks, benefits and alternative therapies for the above-mentioned procedure and for both sedation/analgesia as well as necessary blood product administration, if indicated, as they pertain to this patient. The patient has indicated understanding and acceptance of the risks and procedures discussed. PROCEDURE: After the risks, benefits and alternatives of the above mentioned procedure explained in detail with the patient, informed consent was obtained. Patient was taken to the catheterization lab and prepped and draped in usual fashion. A 6 Icelandic sheath had previously been placed in the right radial artery. There had been previous significant tortuosity of the right subclavian and again attempted to wire this however unsuccessful with a Glidewire. Therefore ultrasound guidance was used to assess for arterial access. 1% lidocaine was used to anesthetize the left radial artery. A 6-Icelandic sheath was placed in the left radial artery using modified Seldinger technique and ultrasound guidance. The decision was made to perform functional assessment of the LAD. A 6 Icelandic CLS 4.0 catheter was used to engage the left main. A 0.014 pressure wire was advanced into the left main and normalized. It was then advanced into the mid LAD and IFR was performed and was normal at 0.96. The right and left radial sheath was removed and a TR band was placed with hem ostasis achieved. The patient tolerated the procedure well. Patient was transported back to the post catheterization holding area in stable condition. Conscious Sedation: Patient was monitored under the direct supervision of myself for conscious sedation using Versed and fentanyl for a total duration of 44 minutes HEMODYNAMICS: Aorta: 148/72 SELECTIVE CORONARY ARTERIOGRAPHY: LEFT MAIN: The left main is a large caliber vessel which bifurcates into the LAD and circumflex. There is no significant stenosis. LEFT ANTERIOR DESCENDING CORONARY ARTERY: LAD is a large caliber vessel which wraps around to the apex. There is a proximal LAD 50 to 60% stenosis and otherwise normal LEFT CIRCUMFLEX CORONARY ARTERY: Left circumflex is a moderate caliber vessel without significant stenosis. RIGHT CORONARY ARTERY: The right coronary artery was not imaged, see separate diagnostic report. FINAL IMPRESSION: 1. CAD as described above including proximal LAD 50 to 60% stenosis. 2. Normal IFR of the LAD PLAN: 1. Aggressive risk factor modification per most recent ACC/AHA guidelines. 2. Follow-up in the office in 1-2 weeks.
== END 2025-01-24 18:08 | disposition home or self-care (01) ==
LOC: 3SCARD 12:20 → INTOOBSV 12:20
PROVIDERS: ADMIT Family Medicine; ATTEND Family Medicine
DX: I25.10 Atherosclerotic heart disease of native coronary artery without angina pectoris (principal); I10 Essential (primary) hypertension; E78.5 Hyperlipidemia, unspecified; E03.9 Hypothyroidism, unspecified; E66.01 Morbid (severe) obesity due to excess calories; Z98.84 Bariatric surgery status; Z79.82 Long term (current) use of aspirin; Z79.890 Hormone replacement therapy; Z79.899 Other long term (current) drug therapy; Z91.040 Latex allergy status; Z82.49 Family history of ischemic heart disease and other diseases of the circulatory system
CPT/HCPCS: 93454; G0379; G0378; C1769 ×5; C1887; C1894; J2250; J1644 ×3; J2405; J2003; J3010; Q9967